=== PATIENT | female | born 1995 | race Hispanic/Latino ===

== ENCOUNTER 2020-01-17 13:59 | Emergency (ER) | payer OTHER, SELFPAY ==
--- NOTE | 2020-01-17 14:15 | ED.GENADULT ---
HPI - General Adult General Chief complaint: Wound/Laceration Stated complaint: possible infected finger Time Seen by Provider: 01/17/20 14:31 Source: patient Mode of arrival: ambulatory Limitations: no limitations History of Present Illness HPI narrative: 24-year-old female patient presents to the [facility] care with complaints of right second finger pain and concerns about infection. Patient states is been like this for the past 3 to 4 days. Patient states that she was filing her nails and noticed that she started having redness and tenderness around the finger. Denies any fevers. Denies any chest pain, shortness of breath. Related Data Home Medications Medication Instructions Recorded Confirmed Iud 01/17/20 Allergies Allergy/AdvReac Type Severity Reaction Status Date / Time No Known Allergies Allergy Verified 08/22/19 09:40 Review of Systems Review of Systems: Narrative: CONSTITUTIONAL: Denies fever, chills, or sweats. EYES: Denies visual changes, redness, or discharge. ENT: Denies rhinorrhea, congestion, sore throat, or otalgia. CARDIOVASCULAR: Denies chest pain, palpitations, or edema. RESPIRATORY: Denies cough or dyspnea. GASTROINTESTINAL: Denies abdominal pain, nausea, vomiting, or diarrhea. GENITOURINARY: Denies dysuria or hematuria. SKIN: Denies rash or itching. Positive redness, swelling and tenderness to right second finger x3 to 4 days MUSCULOSKELETAL: Denies back pain, joint pain, or myalgia. NEUROLOGIC: Denies headache, numbness, or weakness. PSYCHIATRIC: Denies anxiety or depression. [facility] Past Medical History Medical History (Updated 01/17/20 @ 14:48 by CLAIRE Mckeon) Gallstones Gestational diabetes Umbilical hernia Urinary incontinence Surgical History Surgical History (Updated 01/17/20 @ 14:16 by CLAIRE Mckeon) History of tonsillectomy Family History Family History (Updated 01/17/20 @ 14:17 by CLAIRE Mckeon) Other Cancer Social History Social History (Updated 01/17/20 @ 14:17 by CLAIRE Mckeon) Tobacco type: cigarettes Comments At the time of my signature I agree with nursing past medical history, surgical, social, and family history. There is no relevant family history pertinent to the presenting complaint. Exam Narrative: Exam Narrative: GENERAL: Well-appearing, well-nourished, and in no acute distress. HEAD: Normocephalic, atraumatic. EYES: PERRLA and EOMI. ENT: Nares clear, no rhinorrhea or epistaxis. Mucous membranes moist. NECK: Supple. No lymphadenopathy CHEST: Clear to auscultation. No respiratory distress. HEART: Regular rate and rhythm. No murmur heard. Normal peripheral pulses. ABDOMEN: Soft, nontender, nondistended, normal active bowel sounds. EXTREMITIES: Normal range of motion. No edema. SKIN: Warm, dry, no rash. It appears the patient has a paronychia him around the right second finger. It is swollen, red, warm and very tender to the touch. There is no active drainage at this time. NEURO: No focal deficits. Alert and oriented x3. Course Vital Signs Vital signs: Vital Signs Temperature 36.6 C 01/17/20 14:21 Pulse Rate 58 L 01/17/20 14:21 Respiratory Rate 16 01/17/20 14:21 Blood Pressure 106/66 01/17/20 14:21 Pulse Oximetry 100 01/17/20 14:21 Temperature 36.6 C 01/17/20 14:21 Pulse Rate 58 L 01/17/20 14:21 Respiratory Rate 16 01/17/20 14:21 Blood Pressure 106/66 01/17/20 14:21 Pulse Oximetry 100 01/17/20 14:21 Vital signs reviewed. Procedures Other Procedure Procedure 1: Other Procedure: The right second finger was cleansed with Betadine. 0.5 mils of 1% lidocaine was injected to help with numbing. An 18-gauge needle was used to open up the cuticle line and there was some blood expressed from the area. No obvious pus noted. Patient tolerated procedure well Medical Decision Making Differential Diagnosis Differential Diagnosis: Differential diagnosis: Abscess, celluli
[2020-01-17 14:21] VITALS: BP 106/66; PULSE 58; RESP 16; TEMP 36.6; O2SAT 100
== END 2020-01-17 14:53 | disposition home or self-care (01) ==
PROVIDERS: Emergency Provider Nurse Practitioner Family; PCP Family Medicine
DX: L03.011 Cellulitis of right finger (principal); F17.210 Nicotine dependence, cigarettes, uncomplicated
CPT/HCPCS: 10160; 99213; G0463

== ENCOUNTER 2020-06-07 18:45 | Emergency (ER) | payer OTHER, SELFPAY ==
[2020-06-07 18:54] VITALS: BP 127/73; PULSE 54; RESP 16; TEMP 36.9; O2SAT 99
--- NOTE | 2020-06-07 19:22 | ED.GENADULT ---
HPI - General Adult General Chief complaint: Dental/Oral Stated complaint: right jaw swollen Time Seen by Provider: 06/07/20 19:04 Source: patient and RN notes reviewed Mode of arrival: ambulatory Limitations: no limitations History of Present Illness HPI narrative: Patient presents today complaining of swelling to her right cheek x2 days, pain to her right upper and lower jawline's radiating to her right ear. States she is unable to open her mouth too wide as it is very painful. Denies pain to her teeth. States she is having a foul taste in her mouth. Currently rates her pain 5/10, which significantly increases when she brushes her teeth or chews. She has been taking some ibuprofen with mild relief. Denies fever, shortness of breath, or difficulty swallowing. MD complaint: Swelling to right face Related Data Home Medications Medication Instructions Recorded Confirmed levonorgestrel [Mirena] 1 device INTRAUTERINE ONCE 06/07/20 06/07/20 Allergies Allergy/AdvReac Type Severity Reaction Status Date / Time No Known Allergies Allergy Verified 06/07/20 19:01 Review of Systems Review of Systems: Narrative: CONSTITUTIONAL: Denies body aches, fever, chills, or sweats. EYES: Denies visual changes, redness, or discharge. ENT: Denies rhinorrhea, congestion, sore throat, or otalgia.+ Facial swelling and pain CARDIOVASCULAR: Denies chest pain, palpitations, or edema. RESPIRATORY: Denies cough or dyspnea. GASTROINTESTINAL: Denies abdominal pain, nausea, vomiting, or diarrhea. GENITOURINARY: Denies dysuria or hematuria. SKIN: Denies rash, itching, or wounds. MUSCULOSKELETAL: Denies back pain, joint pain, or myalgia. NEUROLOGIC: Denies headache, numbness, tingling, or weakness. PSYCH: Denies depression or anxiety. [facility] Past Medical History Medical History (Updated 06/08/20 @ 00:00 by [facility] Darenu) Gallstones Gestational diabetes Umbilical hernia Urinary incontinence Surgical History Surgical History (Updated 01/17/20 @ 14:16 by CLAIRE Mckeon) History of tonsillectomy Family History Family History (Updated 01/17/20 @ 14:17 by CLAIRE Mckeon) Other Cancer Social History Social History (Updated 01/17/20 @ 14:17 by CLAIRE Mckeon) Tobacco type: cigarettes Comments At time of signature, I have reviewed and agree with nursing past medical, surgical, social and family history unless otherwise noted. Please see nursing chart for further information. There is no relevant family history pertinent to the presenting complaint Exam Narrative: Exam Narrative: GENERAL: Well-appearing, well-nourished, and in no acute distress. HEAD: Normocephalic, atraumatic. EYES: EOMI. No redness or drainage. Conjunctivae normal. ENT: Mucous membranes pink and moist. Nares clear. No rhinorrhea. TMs normal bilaterally. Patient only able to open her mouth about 2 fingerbreadths. No sublingual tenderness or swelling. Patient has tenderness and swelling moderately to the right upper and lower jawline and tenderness to same with some mild redness to the face as well. With inspection to the inner cheek, there is some white material noted around the salivary gland area. No salivary stones readily appreciated. NECK: Normal AROM. Supple. No lymphadenopathy. CHEST: No respiratory distress. Clear to auscultation. HEART: Regular rate and rhythm. No murmur appreciated. Normal peripheral pulses. EXTREMITIES: Normal range of motion. No edema. SKIN: Warm, dry, no rash. Capillary refill normal. Normal skin turgor. NEURO: No focal deficits. Alert and oriented x3. Gait steady. PSYCH: Normal affect. No signs of depression or anxiety. Course Vital Signs Vital signs: Vital Signs Temperature 98.4 F 06/07/20 18:54 Pulse Rate 54 L 06/07/20 18:54 Respiratory Rate 16 06/07/20 18:54 Blood Pressure 127/73 06/07/20 18:54 Pulse Oximetry 99 06/07/20 18:54 Temperature 98.4 F 06/07/20 18:54 Puls
== END 2020-06-07 19:32 | disposition home or self-care (01) ==
PROVIDERS: Emergency Provider Nurse Practitioner; PCP Family Medicine
DX: K11.20 Sialoadenitis, unspecified (principal)
CPT/HCPCS: 99213; G0463

== ENCOUNTER 2021-08-23 12:46 | Emergency (ER) | payer OTHER, SELFPAY ==
[2021-08-23 13:00] VITALS: BP 122/73; PULSE 85; RESP 18; TEMP 36.6; O2SAT 100
--- NOTE | 2021-08-23 13:13 | ED.URI ---
HPI - URI/Sore Throat General Chief Complaint: Upper Respiratory Infection Stated Complaint: Sore Throat,Ear Pain Time Seen by Provider: 08/23/21 13:14 Source: patient, RN notes reviewed and old records reviewed Mode of arrival: ambulatory Limitations: no limitations History of Present Illness HPI Narrative: 26-year-old female presents to the [facility] with complaints of sinus congestion stated 3 days ago. Patient states that her kids had the same thing but they are better. She wants to be better now. Unsure of fevers. Related Data Home Medications Medication Instructions Recorded Confirmed levonorgestrel [Mirena] 1 device INTRAUTERINE ONCE 06/07/20 06/07/20 Allergies Allergy/AdvReac Type Severity Reaction Status Date / Time No Known Allergies Allergy Verified 06/07/20 19:01 Review of Systems Review of Systems: All systems reviewed & are unremarkable except as noted in HPI and below Constitutional: Constitutional: Reports no additional constitutional complaints, Denies chills and Denies fever(s) Eyes: Eyes: Reports no additional eye complaints ENT: Reports as per HPI and Reports nasal congestion Cardiovascular: Cardiovascular: Reports no additional cardiovascular complaints Respiratory: Respiratory: Reports no additional respiratory complaints, Denies cough and Denies dyspnea Gastrointestinal: Gastrointestinal: Reports no additional gastrointestinal complaints Genitourinary: Genitourinary: Reports no additional female genitourinary complaints Musculoskeletal: Musculoskeletal: Reports no additional musculoskeletal complaints Integumentary/Breasts: Skin/Breast: Reports system reviewed and no additional complaints, except as docu Neurologic: Reports system reviewed and no additional complaints, except as documented Psychiatric: Psychiatric: Reports no additional psychiatric complaints Allergic/Immunologic: Allergic/Immunologic: Reports no additional allergic/immunologic complaints [facility] Past Medical History Medical History (Updated 08/23/21 @ 13:42 by Cat Krishna) Gallstones Gestational diabetes Umbilical hernia Urinary incontinence Surgical History Surgical History History of tonsillectomy Family History Family History Other Cancer Social History Social History Tobacco type: cigarettes Comments At the time of my signature, I reviewed and agree with the nursing past medical, surgical, social, and family history. There is no relevant family history pertinent to the patient complaint. Exam Const: General: healthy appearing, no acute distress and alert Nutritional Appearance: well nourished Orientation/consciousness: patient oriented x3 Limitations: no limitations HENMT: Head: normal to inspection Ears: external ears normal, TM's normal bilaterally and EAC's normal Throat: uvula midline, postnasal drainage and tonsils absent Eyes: Conjunctivae: conjunctivae normal Pupils: Equal, round and reactive pupils present Neck: Neck: normal visual inspection, no lymphadenopathy and no meningeal signs Chest: Chest palpation & inspection: normal inspection of the chest Resp: Effort & Inspection: normal respiratory effort and no use of accessory muscles Auscultation: clear to auscultation bilaterally, no crackles, no rales, no rhonchi and no wheezes Cardio: Rate: regular rate Rhythm: regular rhythm GI: GI Palp: Yes Soft to palpation and No Tenderness to palpation present (GI) Back/Spine/Pelvis: Back: no CVA tenderness Skin: General skin exam: normal color Rashes: no rashes Wounds: no wounds Neuro: General: patient oriented x3, moves all extremities, no meningeal signs and no focal motor deficits Speech: normal speech Gait exam (Neuro): Normal gait present Extrem: General: normal to inspection Psych: Appearance: grossly normal
== END 2021-08-23 13:45 | disposition home or self-care (01) ==
PROVIDERS: Emergency Provider Nurse Practitioner; PCP Family Medicine
DX: J01.40 Acute pansinusitis, unspecified (principal)
CPT/HCPCS: 87081; 87804; 87880; 99213; G0463

== ENCOUNTER 2022-01-05 09:23 | Outpatient (CLI) | payer OTHER, SELFPAY ==
--- NOTE | ~2022-01-05 | US_ITS ---
EXAMINATION: US renal BI DATE: 01/05/2022 09:59 INDICATION: Abdominal pain. Familial history of polycystic kidney disease. TECHNIQUE: Multiple ultrasound grayscale images of the kidneys were obtained. COMPARISON: None. FINDINGS: The right kidney measures 12.9 x 4.5 x 5.6 cm. The left kidney measures 11.2 x 4.9 x 6.3 cm. The kidn eys demonstrate normal echogenicity. There is no hydronephrosis in either kidney. No stones identifi ed. The bladder is normal with bilateral ureteral jets visualized with color Doppler. IMPRESSION: 1. Normal kidneys without hydronephrosis. Reviewed, dictated and finalized at location B.
== END 2022-01-05 09:24 | disposition home or self-care (01) ==
LOC: ANHIMG 09:24
PROVIDERS: PCP Family Medicine; Visit Provider Nurse Practitioner Family
DX: R10.9 Unspecified abdominal pain (principal); Z82.71 Family history of polycystic kidney
CPT/HCPCS: 76775

== ENCOUNTER 2022-07-03 02:08 | Emergency (ER) | payer OTHER, SELFPAY ==
--- NOTE | ~2022-07-03 | CT_ITS ---
EXAMINATION: CT abdomen pelvis w con DATE: 07/03/2022 05:33 INDICATION: Sudden onset diffuse abdominal pain TECHNIQUE: Computed tomography (CT) of the abdomen and pelvis was performed with 100 mL Omnipaque-350 intravenous contrast. Automated exposure control and iterative reconstruction technique were employe d. The dose-length product was 514.34 mGy-cm. COMPARISON: 12/21/2012 FINDINGS: Calcified left lower lobe nodule along with calcified bilateral hilar lymph nodes and a few small spl enic calcific lesions, all consistent with old granulomatous disease. Heart size is normal. No perica rdial or pleural effusion. Bilateral breast implants. Focal hepatic steatosis at the ligamentum teres . There are a few gallstones in the gallbladder which is distended to 5.0 cm. No evident gallbladder wall thickening or pericholecystic infiltrate stranding to more specifically suggest acute cholecysti tis. No intra or extrahepatic biliary ductal dilation. Pancreas, bilateral adrenal glands and kidneys are normal. Normal appendix. No abnormal bowel wall thickening or obstruction. No significant interv al change in a 4 cm retroperitoneal cyst position posterior to the cecum. Bladder, anteverted uterus and bilateral adnexa are unremarkable. No free intraperitoneal gas or fluid. No pathologically enlarg ed abdominal or pelvic lymphadenopathy. Bones are unremarkable. IMPRESSION: 1. Cholelithiasis with dilation of the gallbladder but without evident wall thickening or pericholecy stic inflammatory stranding to suggest acute cholecystitis. Correlate for Rashid and if indicated cou ld consider HIDA scan for further evaluation. Reviewed, dictated and finalized at location A. IMPRESSION: 1. Cholelithiasis with dilation of the gallbladder but without evident wall thi ckening or pericholecystic inflammatory stranding to suggest acute cholecystiti s. Correlate for Rashid and if indicated could consider HIDA scan for further e valuation.
[2022-07-03 02:11] VITALS: BP 126/83; PULSE 68; RESP 18; TEMP 36.6; O2SAT 100
--- NOTE | 2022-07-03 02:22 | PC.NURSE ---
Patient presents to the desk stating I need pain medication . This RN informed patient that I am unable to give her pain medication until a provider sees her.
--- NOTE | 2022-07-03 02:42 | PC.NURSE ---
Patient had tummy tuck surgery in January of this year. Patient has also had an umbilical hernia repair in 2012
[2022-07-03 02:54] LABS: Basophils Percent Auto 0.2 % (0.2-1.2); Eosinophils Absolute Auto 0.1 K/mm3 (0-0.3); Eosinophils Percent Auto 0.4 % (0-4.4); Hematocrit 37.3 % (37.0-47.0); Hemoglobin 12.2 g/dL (12.0-15.0); Immature Granulocyte Absolute 0.03 K/mm3 (0.00-0.031); Immature Granulocyte Percent A 0.3 % (0-0.5); Lymphocytes Absolute Auto 1.96 K/mm3 (0.9-3.2); Lymphocytes Percent Auto 17.3 % (18.3-44.2); Mean Corpuscular HGB Conc 32.7 g/dl (32-36); Mean Corpuscular Hemoglobin 28.7 pg (26-34); Mean Corpuscular Volume 87.8 fl (80-100); Mean Platelet Volume 10.2 fl (7.4-10.4); Monocytes Absolute Auto 0.3 K/mm3 (0.1-0.6); Neutrophils Absolute Auto 8.9 K/mm3 (1.3-6.7); Neutrophils Percent Auto 78.8 % (45.5-73.1); Platelet Count Result 247 k/mm3 (150-375); Red Blood Count 4.25 M/mm3 (4.2-5.4); Red Cell Distribution Width 14.5 % (11.5-14.5); White Blood Count 11.3 K/mm3 (4.5-10.0)
[2022-07-03 02:58] LABS: Add Urine Microscopic? YES; Amorphous Sediment Urine Few; Appearance Urine Cloudy (Clear); Bilirubin Urine Negative (Negative); Blood Urine Negative (Negative); Color Urine Yellow (Yellow); Glucose Urine UA Negative (Negative); Ketones Urine Negative (Negative); Leukocyte Esterase Ur Negative LEU/UL (Negative); Mucus Urine Rare /lpf; Nitrate Urine Negative (Negative); Protein Urine Negative (Negative); RBC Urine 0-2 /hpf (0-2); Squamous Epithelial Cell Urine Rare /hpf (Few); Urobilinogen Urine Negative mg/dL (<2.0); WBC Urine 0-3 /hpf
[2022-07-03 03:07] LABS: Alanine Aminotransferase 18 U/L (6-35); Albumin Level 4.9 g/dL (3.5-5.1); Alkaline Phosphatase 67 U/L (38-126); Anion Gap 14 mmol/L (8-16); Aspartate Amino Transferase 19 U/L (14-36); Bilirubin,Total 0.4 mg/dL (0.2-1.3); Blood Urea Nitrogen 17 mg/dL (7-17); Calcium 9.5 mg/dL (8.4-10.2); Carbon Dioxide 26 mmol/L (22-30); Chloride 101 mmol/L (98-107); Estimated CRCL calculation 111 ml/min; Estimated Glomerular Filt Rate > 60; Glucose 110 mg/dL (65-110); Lipase 58 U/L (23-300); Potassium 3.8 mmol/L (3.4-5.0); Sodium 141 mmol/L (137-145)
[2022-07-03 03:37] VITALS: BP 137/72; PULSE 62; RESP 16; TEMP 37; O2SAT 100
--- NOTE | 2022-07-03 04:44 | ED.GENADULT ---
HPI - General Adult General Chief complaint: Abdominal Pain Stated complaint: abdominal pain Time Seen by Provider: 07/03/22 04:08 History of Present Illness HPI narrative: Is a 27-year-old female presenting to ED with chief complaint of abdominal pain. Patient says that the abdominal pain started at 11:00 p.m. tonight. She says it is worse in the epigastric area but is throughout her entire belly. It is the worst pain in her life and is worse than giving . She says it is constant but it does have evident flow to it. She has never experienced pain like this before. She says it is improved by rolling back and forth. There are no exacerbating factors. She has had 2 episodes of nausea and vomiting since started as well as 3 episodes of diarrhea. She denies fever, chills, chest pain or difficulty breathing. She denies urinary symptoms. She is not . Patient is repeatedly asking for pain medication. Related Data Home Medications Medication Instructions Recorded Confirmed levonorgestrel 20 mcg/24 hours (8 1 device intrauterine ONCE 06/07/20 06/07/20 yrs) 52 mg intrauterine device (Mirena) Allergies Allergy/AdvReac Type Severity Reaction Status Date / Time No Known Allergies Allergy Verified 07/03/22 02:14 Review of Systems Review of Systems: CONSTITUTIONAL: Denies night sweats. EYES: No eye pain ENT: Denies rhinorrhea CARDIOVASCULAR: Denies palpitations RESPIRATORY: Denies hemoptysis GASTROINTESTINAL: Denies hematemesis GENITOURINARY: Denies hematuria. SKIN: Denies rash MUSCULOSKELETAL: Denies myalgia. NEUROLOGIC: Denies weakness. PSYCHIATRIC: Denies delusions PMFSH Past Medical History Medical History (Updated 07/03/22 @ 06:46 by Liang Bledsoe MD) Gallstones Gestational diabetes Umbilical hernia Umbilical hernia Urinary incontinence Surgical History Surgical History H/O abdominoplasty History of tonsillectomy Family History Family History Other Cancer Social History Social History Tobacco type: cigarettes Exam Narrative: APPEARANCE: sitting in a chair with her head on the stretcher rocking back and forth. Head Atraumatic EYES: PERRLA/EOMI, NOSE: Normal no drainage NECK: Supple, Trachea midline RESPIRATORY: CTAB, No increased work of breathing. CARDIOVASCULAR: S1S2 appreciated ABDOMINAL: Abdomen is diffusely tender. It is soft with no guarding or rebound. MUSCULOSKELETAL: No obvious deformities NEURO: Alert. Moving 4/4 extremities SKIN:: Warm, dry. Normal color PSYCHIATRIC: Normal affect Course Vital Signs Vital signs: Vital Signs Temperature 97.8 F 07/03/22 02:11 Pulse Rate 68 07/03/22 02:11 Respiratory Rate 18 07/03/22 02:11 Blood Pressure 126/83 07/03/22 02:11 Pulse Oximetry 100 07/03/22 02:11 Temperature 98.6 F 07/03/22 03:37 Pulse Rate 62 07/03/22 03:37 Respiratory Rate 16 07/03/22 03:37 Blood Pressure 137/72 07/03/22 03:37 Pulse Oximetry 100 07/03/22 03:37 Medical Decision Making [facility] Narrative Medical decision making narrative: This is a 27-year-old female presenting with sudden onset abdominal pain. Abdominal lab work was ordered. She is reporting diffuse tenderness. CT abdomen pelvis has been ordered to evaluate for intra-abdominal pathology. Patient has been given a GI cocktail. CBC was significant for a mildly elevated white blood cell count 11.3. CMP was within normal limits. Urinalysis did not indicate UTI. Lipase was normal. CT showed a distended gallbladder with a stone in the gallbladder neck. On re-evaluation the patient says her pain is gone. Her laboratory studies were normal her vital signs were stable. I am not concerned for cholecystitis at this time this is more likely some biliary colic. Nic
[2022-07-03] MEDS: FAMOTIDINE 20 MG/2 ML VIAL IV PUSH (04:56)
[2022-07-03] MEDS: MAG HYDROX/AL HYDROX/SIMETH 30 ML UDC PO (04:56)
[2022-07-03] MEDS: ONDANSETRON INJ 4 MG/2 ML VIAL IV PUSH (04:56)
[2022-07-03] MEDS: PROCHLORPERAZINE EDISYLATE 10 MG/2 ML VIAL IV PUSH (04:56)
[2022-07-03 05:06] LABS: Amphetamine Screen Urine Negative (Negative); Barbiturate Screen Urine Negative (Negative); Benzodiazepines Screen Urine Negative (Negative); Cannabinoid Screen Urine Negative (Negative); Cocaine Screen Urine Negative (Negative); Methadone Screen Urine Negative (Negative); Opiate Screen Urine Negative (Negative); Phencyclidine Screen Urine Negative (Negative)
[2022-07-03 06:54] VITALS: BP 127/83; PULSE 64; RESP 18; O2SAT 98
== END 2022-07-03 06:56 | disposition home or self-care (01) ==
PROVIDERS: Emergency Provider Emergency Medicine; PCP Family Medicine
DX: K80.20 Calculus of gallbladder without cholecystitis without obstruction (principal); Z98.84 Bariatric surgery status; F17.210 Nicotine dependence, cigarettes, uncomplicated
CPT/HCPCS: 36415; 74177; 80053; 80307; 81001; 81025; 83690; 85025; 96374; 96375; 99284; A9270; J0780; J2405; Q9967

== ENCOUNTER 2022-11-07 15:13 | Emergency (ER) | payer OTHER, SELFPAY ==
[2022-11-07 15:23] VITALS: BP 116/67; PULSE 89; RESP 18; TEMP 37.1; O2SAT 100
--- NOTE | 2022-11-07 15:27 | ED.URI ---
HPI - URI/Sore Throat General Chief Complaint: Upper Respiratory Infection Stated Complaint: . Time Seen by Provider: 11/07/22 15:15 Source: patient Mode of arrival: ambulatory Limitations: no limitations History of Present Illness HPI Narrative: Callum is a 27-year-old female patient presenting to the clinic today with complaints of sore throat times 2 days. She reports that her daughter was recently tested for strep and the culture came back positive today. Patient is concerned that she may have strep throat as well. MD elicited complaint: sore throat and nasal congestion Related Data Home Medications Medication Instructions Recorded Confirmed levonorgestrel 21 mcg/24 hours (8 1 device intrauterine ONCE 06/07/20 06/07/20 yrs) 52 mg intrauterine device (Mirena) Allergies Allergy/AdvReac Type Severity Reaction Status Date / Time No Known Allergies Allergy Verified 07/03/22 02:14 Review of Systems Review of Systems: Pertinent positives per HPI. Patient denies any fever, chills, rash, headache, visual changes, dizziness, cough, shortness of breath, chest pain, palpitations, nausea, vomiting, diarrhea, constipation, abdominal pain, or any urinary issues. [facility] Past Medical History Medical History Gallstones Gestational diabetes Umbilical hernia Umbilical hernia Urinary incontinence Surgical History Surgical History H/O abdominoplasty History of tonsillectomy Family History Family History Other Cancer Social History Social History Tobacco type: cigarettes Comments At the time of my signature, I reviewed and agree with the nursing past medical, surgical, social, and family history. There is no relevant family history pertinent to the patient complaint. Exam Narrative: General: Well-developed, well nourished, in no apparent distress Head: Normocephalic, atraumatic Eyes: Pupils equally round and reactive to light bilaterally, EOM intact, sclera and conjunctive clear, no discharge, lids normal Ears: TMs intact and clear, ear canals clear, no drainage, grossly hearing normal. Nose: Nares patent, clear nasal discharge, no inflammation, no sinus tenderness. Mouth: Oral pharynx without lesions or masses, good dentition, MMM. Oropharynx red-tonsils surgically absent Neck: Supple, trachea midline, no enlargement of anterior or posterior cervical nodes, no thyroid masses or goiter palpable. Cardio: Regular rate and rhythm, s1 and s2 normal, no murmur appreciated. Resp: Clear to auscultation bilaterally, no rhonchi, rales, wheezing or rubs Course Course Emergency Course: Portions of this record may have been created with voice recognition software. Level of Care: Express Care Visit Vital Signs Vital signs: Vital Signs Temperature 37.1 C 11/07/22 15:23 Pulse Rate 89 11/07/22 15:23 Respiratory Rate 18 11/07/22 15:23 Blood Pressure 116/67 11/07/22 15:23 Pulse Oximetry 100 11/07/22 15:23 Oxygen Delivery Room Air 11/07/22 15:23 Temperature 37.1 C 11/07/22 15:23 Pulse Rate 89 11/07/22 15:23 Respiratory Rate 18 11/07/22 15:23 Blood Pressure 116/67 11/07/22 15:23 Pulse Oximetry 100 11/07/22 15:23 Oxygen Delivery Room Air 11/07/22 15:23 Vital signs reviewed MDM - URI/Sore Throat MDM Narrative Medical decision making narrative: At the time of visit patient is resting comfortably on the exam table. Strep screen was obtained and was negative in the clinic today. We will send for culture if this comes back positive we will contact patient place her on antibiotics at that time supportive measures were discussed with the patient she voiced understanding discharge instructions and agrees to treatment p
== END 2022-11-07 15:41 | disposition home or self-care (01) ==
PROVIDERS: Emergency Provider Nurse Practitioner Family; PCP Family Medicine
DX: J02.9 Acute pharyngitis, unspecified (principal)
CPT/HCPCS: 87081; 87880; 99213; G0463

== ENCOUNTER 2022-11-15 17:24 | Emergency (ER) | payer OTHER, SELFPAY ==
[2022-11-15 17:29] VITALS: BP 110/58; PULSE 98; RESP 20; TEMP 37.6; O2SAT 100
--- NOTE | 2022-11-15 17:44 | ED.ABDPAIN ---
HPI - Abdominal Pain General Chief Complaint: Abdominal Pain Stated Complaint: Diarrhea,Vomiting,Body Aches,Headache Time Seen by Provider: 11/15/22 17:44 Source: patient Mode of arrival: ambulatory Limitations: no limitations History of Present Illness HPI narrative: 27-year-old female presents with complaint of chills, body aches, upset stomach, nausea, vomiting and diarrhea starting this morning. Reports 1 episode of vomiting. Is able to keep down water. Took 1 g of Tylenol early this morning. States that she has had several episodes of diarrhea. Afebrile. No urinary symptoms. No concern for . All systems reviewed and negative except as noted above. Related Data Home Medications Medication Instructions Recorded Confirmed drospirenone 3 mg-estetrol 14.2 mg 1 tablet PO DAILY 11/07/22 11/07/22 (28) tablet (Nextstellis) phentermine 15 mg capsule 15 mg PO DAILY 11/07/22 11/07/22 Allergies Allergy/AdvReac Type Severity Reaction Status Date / Time No Known Allergies Allergy Verified 11/07/22 15:51 Review of Systems Review of Systems: CONSTITUTIONAL: Reports fever, chills, or sweats. EYES: Denies visual changes, redness, or discharge. ENT: Denies rhinorrhea, congestion, sore throat, or otalgia. CARDIOVASCULAR: Denies chest pain, palpitations, or edema. RESPIRATORY: Denies cough or dyspnea. GASTROINTESTINAL: reports abdominal pain, nausea, vomiting, or diarrhea. GENITOURINARY: Denies dysuria or hematuria. SKIN: Denies rash or itching. MUSCULOSKELETAL: Denies back pain, joint pain. Reports myalgia. NEUROLOGIC: Denies headache, numbness, or weakness. PSYCHIATRIC: Denies anxiety or depression. All other systems reviewed are negative, except as documented in HPI. [facility] Past Medical History Medical History Gallstones Gestational diabetes Umbilical hernia Umbilical hernia Urinary incontinence Surgical History Surgical History H/O abdominoplasty History of tonsillectomy Family History Family History Other Cancer Social History Social History Tobacco type: cigarettes Comments At time of signature, agree with nursing past medical, surgical, social and family history. There is no relevant family history pertinent to the presenting complaint. Exam Narrative: GENERAL: This is a well-nourished, well-developed patient, patient ill-appearing but in no distress. HEAD: normocephalic, atraumatic. EYES: PERRL. Sclera clear/white. Vision is grossly intact. EARS: External ears normal NOSE: External nose normal NECK: Neck supple, non-tender without lymphadenopathy, masses or thyromegaly. CARDIOVASCULAR: Regular rate and rhythm without murmurs, gallops, or rubs. RESPIRATORY: Clear to auscultation. Breath sounds equal bilaterally. No wheezes, rales, or rhonchi. GASTROINTESTINAL: Abdomen soft, non-tender, nondistended. Bowel sounds are active. No hepato-splenomegaly, or palpable masses. No guarding. SKIN: warm, Dry, intact with no suspicious lesions or rash, good texture and turgor. NEURO: awake, alert, and oriented to person, place and time. There were no obvious focal neurologic abnormalities. EXTREMITIES: No joint tenderness, effusion, or edema noted. Course Course Level of Care: Express Care Visit Vital Signs Vital signs: Vital Signs Temperature 37.6 C 11/15/22 17:29 Pulse Rate 98 11/15/22 17:29 Respiratory Rate 20 11/15/22 17:29 Blood Pressure 110/58 L 11/15/22 17:29 Pulse Oximetry 100 11/15/22 17:29 Oxygen Delivery Room Air 11/15/22 17:29 Temperature 37.6 C 11/15/22 17:29 Pulse Rate 98 11/15/22 17:29 Respiratory Rate 20 11/15/22 17:29 Blood Pressure 110/58 L 11/15/22 17:29 Pulse Oximetry 100 03
[2022-11-15] MEDS: ONDANSETRON HCL ODT 4 MG TABLET SUBLINGUAL (18:04)
[2022-11-15] MEDS: IBUPROFEN 600 MG TABLET PO (18:05)
== END 2022-11-15 18:37 | disposition home or self-care (01) ==
PROVIDERS: Emergency Provider Nurse Practitioner Family; PCP Family Medicine
DX: A08.4 Viral intestinal infection, unspecified (principal); F17.210 Nicotine dependence, cigarettes, uncomplicated
CPT/HCPCS: 87804; 99213; A9270; G0463

== ENCOUNTER 2023-10-23 13:12 | Emergency (ER) | payer OTHER, SELFPAY ==
[2023-10-23 13:47] VITALS: BP 122/59; PULSE 66; RESP 16; TEMP 36.7; O2SAT 98
--- NOTE | 2023-10-23 14:00 | ED.GENADULT ---
HPI - General Adult General Chief complaint: Unspecified Stated complaint: Female Problems Time Seen by Provider: 10/23/23 14:10 Mode of arrival: ambulatory Limitations: no limitations History of Present Illness HPI narrative: 28-year-old female presents with concern for hemorrhoid reports has been there for 3-4 days. Reports it is painful. Denies bleeding. complaint: Hemorrhoid Related Data Home Medications Medication Instructions Recorded Confirmed No Home Medications 10/23/23 10/23/23 Allergies Allergy/AdvReac Type Severity Reaction Status Date / Time No Known Allergies Allergy Verified 10/23/23 14:04 Review of Systems Review of Systems: CONSTITUTIONAL: Denies malaise, chills, sweats, or fever. SKIN: Denies rash or itching. Reports painful hemorrhoid MUSCULOSKELETAL: Denies myalgia. All systems reviewed & are unremarkable except as noted in HPI and below PMFSH Past Medical History Medical History Gallstones Gestational diabetes Umbilical hernia Umbilical hernia Urinary incontinence Surgical History Surgical History H/O abdominoplasty History of tonsillectomy Family History Family History Other Cancer Social History Social History Tobacco type: cigarettes Comments At time of signature, agree with nursing past medical, surgical, social and family history. There is no relevant family history pertinent to the presenting complaint Exam Narrative: GENERAL: Well-appearing, well-nourished, and in no acute distress. HEAD: Normocephalic ENT: Nares clear. Mucous membranes moist. NECK: Supple. CHEST: No respiratory distress. Speaks in full sentences. HEART: Regular rate and rhythm. SKIN: Warm, dry, no visible rash. Approximately 1 cm nonthrombosed hemorrhoid noted without surrounding erythema, edema, warmth, tenderness NEURO: Alert and oriented x3. PSYCH: Normal mood and affect Course Course Emergency Course: Patient was advised to use stool softeners to avoid straining with bowel movements. Patient was advised if symptoms do not improve she should follow up with General surgery for further evaluation. Patient is aware of diagnosis, understands and agrees to treatment plan. Anticipatory guidance given. Patient agrees to follow-up as directed and is aware of reasons to seek care at the emergency department. Portions of this record may have been created with voice recognition software Level of Care: Express Care Visit Vital Signs Vital signs: Vital Signs Temperature 98.1 F 10/23/23 13:47 Pulse Rate 66 10/23/23 13:47 Respiratory Rate 16 10/23/23 13:47 Blood Pressure 122/59 L 10/23/23 13:47 Pulse Oximetry 98 10/23/23 13:47 Oxygen Delivery Room Air 10/23/23 13:47 Temperature 98.1 F 10/23/23 13:47 Pulse Rate 66 10/23/23 13:47 Respiratory Rate 16 10/23/23 13:47 Blood Pressure 122/59 L 10/23/23 13:47 Pulse Oximetry 98 10/23/23 13:47 Oxygen Delivery Room Air 10/23/23 13:47 Reviewed. Medical Decision Making MDM Narrative Medical decision making narrative: Exam findings show no acute concerns or changes; patient is non-toxic appearing and is in no distress. Patient is appropriate for outpatient treatment and follow-up. Vital Signs Vital Signs: Vital Signs Temperature 98.1 F 10/23/23 13:47 Pulse Rate 66 10/23/23 13:47 Respiratory Rate 16 10/23/23 13:47 Blood Pressure 122/59 L 10/23/23 13:47 Pulse Oximetry 98 10/23/23 13:47 Oxygen Delivery Room Air 10/23/23 13:47 Temperature 98.1 F 10/23/23 13:47 Pulse Rate 66 10/23/23 13:47 Respiratory Rate 16 10/23/23 13:47 Blood Pressure 122/59 L 10/23/23 13:47 Pulse Oximetry 98 10/23/23 13:47 Oxygen Delive
== END 2023-10-23 14:25 | disposition home or self-care (01) ==
PROVIDERS: Emergency Provider Nurse Practitioner; PCP Family Medicine
DX: K64.9 Unspecified hemorrhoids (principal); F17.210 Nicotine dependence, cigarettes, uncomplicated
CPT/HCPCS: 99211; G0463

== ENCOUNTER 2023-12-12 09:49 | Emergency (ER) | payer OTHER, SELFPAY ==
[2023-12-12 09:59] VITALS: BP 114/67; PULSE 66; RESP 16; TEMP 36.9; O2SAT 99
--- NOTE | 2023-12-12 10:29 | ED.EYEPROB ---
HPI - Eye Problem General Chief complaint: Eye Problems Stated complaint: red eyes,discharge Time Seen by Provider: 12/12/23 10:29 Source: patient, RN notes reviewed and old records reviewed Mode of arrival: ambulatory Limitations: no limitations History of Present Illness HPI Narrative: 28-year-old female presents to the [facility] with complaints of red eyes, drainage. Patient states that started yesterday. Denies any blurry vision or drip change in vision. Blood vision is 2020 right left and bilateral History of Lasix surgery. Denies any recent trauma Onset (ago): day(s) (1) Related Data Patient tetanus UTD: Yes Home Medications Medication Instructions Recorded Confirmed phentermine 37.5 mg tablet 37.5 mg PO DAILY 12/12/23 12/12/23 solifenacin 10 mg tablet 10 mg PO DAILY 12/12/23 12/12/23 valacyclovir 500 mg tablet 500 mg PO DAILY 12/12/23 12/12/23 Allergies Allergy/AdvReac Type Severity Reaction Status Date / Time No Known Allergies Allergy Verified 12/12/23 10:03 Review of Systems Review of Systems: All systems reviewed & are unremarkable except as noted in HPI and below Constitutional: Constitutional: Reports no additional constitutional complaints Eyes: Eyes: Reports as per HPI, Reports eye discharge and Reports irritation ENT: Reports system reviewed and no additional complaints, except as documented Cardiovascular: Cardiovascular: Reports no additional cardiovascular complaints, Denies chest pain and Denies dyspnea Respiratory: Respiratory: Reports no additional respiratory complaints, Denies chest congestion, Denies cough and Denies dyspnea Gastrointestinal: Gastrointestinal: Reports no additional gastrointestinal complaints, Denies abdominal pain, Denies nausea and Denies vomiting Musculoskeletal: Musculoskeletal: Reports no additional musculoskeletal complaints Integumentary/Breasts: Skin/Breast: Reports system reviewed and no additional complaints, except as docu Neurologic: Reports system reviewed and no additional complaints, except as documented Psychiatric: Psychiatric: Reports no additional psychiatric complaints Allergic/Immunologic: Allergic/Immunologic: Reports no additional allergic/immunologic complaints PMFSH Past Medical History Medical History Gallstones Gestational diabetes Umbilical hernia Umbilical hernia Urinary incontinence Surgical History Surgical History (Updated 12/12/23 @ 17:42 by Cat Krishna APRN) H/O abdominoplasty H/O breast augmentation History of cholecystectomy History of tonsillectomy Family History Family History Other Cancer Social History Social History Smoking status: Current every day smoker Tobacco type: cigarettes Alcohol intake: never Living arrangements: alone Occupation/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 There is no relevant family history pertinent to the patient complaint. Exam Const: General: cooperative, healthy appearing, comfortable, no acute distress, well developed, alert and well nourished Nutritional Appearance: well nourished Orientation/consciousness: patient oriented x3 Limitations: no limitations HENMT: Head: normal to inspection Ears: hearing grossly normal bilaterally and external ears normal Face/Nose/Sinus: Normal external nose present, Normal nares present, Normal nasal mucous membranes and turbinates present, normal facial exam and face symmetric Face and sinus: normal facial exam and face symmetric Mouth: Yes Normal oral and palatal mucosa present, Yes lip normal and Yes moist mucous membranes Throat: posterior oropharynx normal and uvula midline Eyes: General
== END 2023-12-12 10:41 | disposition home or self-care (01) ==
PROVIDERS: Emergency Provider Nurse Practitioner; PCP Family Medicine
DX: H10.33 Unspecified acute conjunctivitis, bilateral (principal); F17.210 Nicotine dependence, cigarettes, uncomplicated
CPT/HCPCS: 99213; G0463

== ENCOUNTER 2023-12-12 12:57 | Outpatient (RCR) | payer OTHER, SELFPAY ==
--- NOTE | 2023-12-12 13:45 | OPREHPOC ---
Outpatient Therapy Plan of Care This is a Multidisciplinary Plan of Care that may contain components documented by all disciplines (PT, OT, and ST.) PT Problem 1 PT Problem #1 Knowledge Deficit PT Goal 1 Goal 1. Patient will perform independent HEP 2. Patient will verbalize urge suppression techniques Target Visit 2 PT Problem 2 PT Problem #2 Impaired Strength PT Goal 1 Goal 1. Pelvic floor strength to 3/5 to decrease incontinence 2. Pelvic floor endurance to 10 seconds to decrease incontinence Target Visit 6 PT Problem 3 PT Problem #3 Impaired Functional ADLs PT Goal 1 Goal 1. Patient will void no more than 8 times a day and 1 time at night 2. Patient will report no more than 1 instance of incontinence per week 3. Patient will be able to go without pads at least 5 days a week Target Visit 6
--- NOTE | 2023-12-12 13:45 | PTOPEVAL1 ---
Assessment and note entered by Estefani West DPT Evaluation Information Assessment Status Evaluation Subjective Information Pt reports she has been diagnosed with OAB 4-5 years ago. Has tried previous pelvic PT which did help at the time. Has had incontinence as well which started 1.5 years ago and has worsened. Feels a lot of stress and will avoid fluids depending on her situation. Also will always void before going to a store and then may still have to void at the store. States the meds for OAB make her thirsty. Voids around 10 times a day and 1 time at night. Can hold urine less than a minute and wears pads at all times. Volume of incontinence is enough to fill a pad. Incontinence occurs at least once a day, often with activity. Avoids certain activities due to the incontinence and will void before and after exercise. Denies pain with urination. BM twice a day, no pain. Has a hemorrhoid and will likely be having surgery for it. Pt has been 3 times, 3 vaginal deliveries without tearing. States she has been told she has a thin cervical wall and gets bleeding after intercourse which is painful. Highest pain 7/10 and lowest 0/10. No other b/b issues. Patient goal: gain control again and stop incontinence, avoid wearing pads every day Returns to MD January 01. Reported Pain Level Pain Score 0: Self Report Assessment PT Clinical Summary The patient is presenting to skilled therapy with a diagnosis of OAB and reports of mixed urinary incontinence. She presents with greatly decreased pelvic floor strength and endurance and is unable to perform a contraction at this visit. She also demonstrates decreased hip and core strength. These impairments are contributing to her daily incontinence. She will highly benefit from therapy to address impairments in order to decrease urgency and incontinence in order to restore full function. Plan of Care Interventions Manual Therapy,Neuro Re-education,Patient/ Caregiver Education,Therapeutic Activities, Therapeutic Exercise PT Services Indicated Yes Treatment Frequency and 1 time a week for 6 visits Duration
--- NOTE | 2023-12-19 14:07 | PCPTNOTE ---
Patient did not show up for appointment 12/19/23- called and left voicemail for patient to reschedule.
--- NOTE | 2024-01-02 12:42 | PCPTNOTE ---
Patient called to cancel appointment on 01/02/24.
--- NOTE | 2024-01-16 14:42 | PCPTNOTE ---
The patient has not attended therapy since her evaluation on 12/12/23. She will be discharged this date and require a new script to continue in the future.
--- NOTE | 2024-01-16 14:49 | PTOPDC ---
Assessment and note entered by Estefani West, DPT Evaluation Information Assessment Status Discharge - Pt Not Present Subjective Information - Assessment PT Clinical Summary The patient has not attended therapy since her evaluation 12/12/23. She will be discharged this visit and require a new script to resume therapy in the future. Plan of Care PT Services Indicated No
== END 2024-01-16 16:50 | disposition home or self-care (01) ==
LOC: ANHPT 12:57
PROVIDERS: PCP Family Medicine; Visit Provider Nurse Practitioner
DX: R35.0 Frequency of micturition (principal); N32.81 Overactive bladder; N39.3 Stress incontinence (female) (male)
CPT/HCPCS: 97112; 97161; 99199; 99213; G0463

== ENCOUNTER 2024-01-15 11:12 | Emergency (ER) | payer OTHER, SELFPAY ==
[2024-01-15 11:19] VITALS: BP 107/76; PULSE 64; RESP 18; TEMP 36.6; O2SAT 100
--- NOTE | 2024-01-15 11:19 | ED.CHESTPAIN ---
HPI - Chest Pain General Chief Complaint: Chest Pain Stated Complaint: Chest Pain Time Seen by Provider: 01/15/24 11:31 Mode of arrival: ambulatory Limitations: no limitations History of Present Illness HPI narrative: 28-year-old female presents with concern for chest pain, pressure, heaviness that started at 5:00 a.m.. She reports it gets worse when she lies down flat. She reports sitting up makes it better. She reports certain movements make it worse. She denies shortness of breath. Reports she has been using deep breathing exercises which helps. She reports history of heartburn when she was . She denies any injury, rash, bruising MD complaint: chest pain Related Data Home Medications Medication Instructions Recorded Confirmed levonorgestrel 17.5 mcg/24 hr (up 1 device intrauterine ONCE 01/15/24 01/15/24 to 5 yrs) 19.5mg intrauterine device (Kyleena) Allergies Allergy/AdvReac Type Severity Reaction Status Date / Time No Known Allergies Allergy Verified 01/15/24 11:20 Review of Systems Review of Systems: CONSTITUTIONAL: Denies malaise, chills, sweats, or fever. CARDIOVASCULAR: Reports mid start chest pain. Denies palpitations or edema. RESPIRATORY: Denies cough or dyspnea. GASTROINTESTINAL: Denies abdominal pain, nausea, vomiting SKIN: Denies bruising, rash or itching. MUSCULOSKELETAL: Denies back pain, joint pain, or myalgia. NEUROLOGIC: Denies numbness, weakness, or headache. PSYCHIATRIC: Denies anxiety or depression. All systems reviewed & are unremarkable except as noted in HPI and below PMFSH Past Medical History Medical History (Updated 01/15/24 @ 11:55 by Cat Christianson NP) Gallstones Gestational diabetes Umbilical hernia Umbilical hernia Urinary incontinence Surgical History Surgical History (Updated 12/12/23 @ 17:42 by Cat Krishna APRN) H/O abdominoplasty H/O breast augmentation History of cholecystectomy History of tonsillectomy Family History Family History Other Cancer Social History Social History Smoking status: Current every day smoker Tobacco type: cigarettes Alcohol intake: never Living arrangements: alone 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 There is no relevant family history pertinent to the presenting complaint Exam Narrative: GENERAL: Well-appearing, well-nourished, and in no acute distress. HEAD: Normocephalic, atraumatic. EYES: PERRLA, sclera clear, and EOMI. No nystagmus. ENT: Nares clear. Mucous membranes moist. NECK: Supple. No jugular venous distension CHEST: No respiratory distress. Clear to auscultation. No bony deformities, no asymmetry. Speaks in full sentences. HEART: Regular rate and rhythm. No murmur heard. Normal peripheral pulses. EXTREMITIES: Normal range of motion. No edema. Normal strength and sensation. SKIN: Warm, dry, no visible rash. NEURO: Alert and oriented x3. PSYCH: Normal mood and affect Course Course Emergency Course: Patient is aware of diagnosis, understands and agrees to treatment plan. Anticipatory guidance given. Patient agrees to follow-up as directed and is aware of reasons to seek care at the emergency department. Portions of this record may have been created with voice recognition software Level of Care: Express Care Visit Reevaluation(s) Reevaluation #1: GI cocktail given. After 15 minutes patient reports pain has resolved Date: 01/15/24 Time: 11:52 Vital Signs Vital signs: Reviewed. MDM - Chest Pain MDM Narrative Medical decision making narrative: No evidence of ACS, pericarditis, myocarditis, pulmonary embolism, pneumothorax, pneumonia, Zoster, or esophageal perforation. Historically not abrupt in onset
[2024-01-15 11:20] VITALS: BP 107/76; PULSE 64; RESP 18; TEMP 36.6; O2SAT 100
--- NOTE | 2024-01-15 11:20 | ECG_ITS ---
SEE SCANNED COPY FOR CONFIRMED REPORT MTDD
[2024-01-15] MEDS: MAG HYDROX/AL HYDROX/SIMETH 30 ML UDC 15 ML PO (11:37)
[2024-01-15] MEDS: LIDOCAINE HCL 2% VISC SOLN 15 ML UDC PO (11:37)
== END 2024-01-15 12:00 | disposition home or self-care (01) ==
PROVIDERS: Emergency Provider Nurse Practitioner; PCP Family Medicine
DX: R10.13 Epigastric pain (principal); R32 Unspecified urinary incontinence; F17.210 Nicotine dependence, cigarettes, uncomplicated
CPT/HCPCS: 93005; 99213; A9270; G0463

== ENCOUNTER 2024-02-08 11:11 | Outpatient (CLI) | payer OTHER, SELFPAY ==
--- NOTE | ~2024-02-08 | XR_ITS ---
Clinical Indication: Cough PA and lateral views of the chest: Comparison: None Findings: Calcified left basilar granuloma present. The lungs are otherwise clear, without evidence o f focal consolidation or pleural effusion. Cardiomediastinal silhouette is within normal limits. Bon es and soft tissues are unremarkable. Impression: No acute abnormality. Calcified left basilar granuloma. Reviewed, dictated and finalized at location . Impression: No acute abnormality. Calcified left basilar granuloma.
== END 2024-02-08 11:12 | disposition home or self-care (01) ==
PROVIDERS: PCP Family Medicine; Visit Provider Nurse Practitioner Family
DX: J84.10 Pulmonary fibrosis, unspecified (principal)
CPT/HCPCS: 71046

== ENCOUNTER 2024-05-06 08:41 | Day surgery (SDC) | payer OTHER, SELFPAY ==
[2024-04-02 15:10] VITALS: BMI 31.5
[2024-04-19 14:39] VITALS: BMI 33.3
--- NOTE | 2024-05-05 21:06 | PM.HPGS ---
History of Present Illness History of Present Illness Consent: Risks, benefits, and alternatives have been discussed and questions answered. Patient agrees to proceed with procedure. Chief complaint: Gerd without Esophagitis Narrative: Callum Meza is a 29 year old female with chronic reflux symptoms. 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 Spiritual care concerns: No Meds Home Medications and Allergies Home Medications Medication Instructions Recorded Confirmed Type levonorgestrel 17.5 mcg/24 hr (up 1 device intrauterine ONCE 01/15/24 05/06/24 History to 5 yrs) 19.5mg intrauterine device (Kyleena) phentermine 37.5 mg tablet 37.5 mg PO DAILY 04/19/24 05/06/24 History Allergies Allergy/AdvReac Type Severity Reaction Status Date / Time No Known Allergies Allergy Verified 05/06/24 10:02 Exam Const: General: alert Orientation/consciousness: patient oriented x3 Resp: Auscultation: clear to auscultation bilaterally Cardio: Rhythm: regular rhythm GI: GI Palp: Yes Soft to palpation and No Tenderness to palpation present (GI) Neuro: General: patient oriented x3 Assessment and Plan Assessment and plan (1) GERD (gastroesophageal reflux disease): Code(s): K21.9 - Gastro-esophageal reflux disease without esophagitis Status: Acute Assessment and Plan: EGD with possible biopsy or dilatation or cautery.
--- NOTE | 2024-05-06 06:59 | P.PNAN_ITS ---
Anes - Initial Pre Proc Eval Procedure: Operation Date: 05/06/24 11:00 Proposed Procedures p Esophagogastroduodenoscopy - Juvenal Beltran MD Date/Time: 05/06/24 06:59 Surgeon: Juvenal Beltran MD Pre Op Diagnosis: Gerd without Esophagitis Patient Data Age: 29 Gender: F Height: 1.55 m Weight: 80 kg Allergies Allergy/AdvReac Type Severity Reaction Status Date / Time No Known Allergies Allergy Verified 05/06/24 10:02 Home Medications Medication Instructions Recorded Confirmed Type levonorgestrel 17.5 mcg/24 hr (up 1 device intrauterine ONCE 01/15/24 05/06/24 History to 5 yrs) 19.5mg intrauterine device (Kyleena) phentermine 37.5 mg tablet 37.5 mg PO DAILY 04/19/24 05/06/24 History Patient hx anesthesia problems: none Family hx anesthesia problems: none Results Review: All pre-operative results and documents have been reviewed as part of the pre- operative evaluation. 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 Informed Consent: The patient's anesthetic plan and its attendant risks and benefits were discussed with the patient/family/POA. Questions were solicited and answers provided to the satisfaction of the patient/family/POA.
[2024-05-06 10:05] VITALS: BP 106/78; PULSE 50; RESP 16; TEMP 36.8; O2SAT 100; BMI 31.2
[2024-05-06] MEDS: LACTATED RINGERS 1,000 ML 150 ML IV CONT (10:14)
[2024-05-06 11:06] VITALS: BP 95/60; PULSE 55; RESP 16; O2SAT 98
--- NOTE | 2024-05-06 11:15 | WPDANESPN ---
Anes - Prog Note Post-Op Date/Time: 05/06/24 11:15 Cardiovascular status: normal Respiratory status: normal Airway patency: baseline Mental status: baseline Post-Op hydration status: normal Vital Signs: Last Vital Signs Temp 36.8 C 05/06/24 10:05 Pulse 55 L 05/06/24 11:12 Resp 16 05/06/24 11:12 BP 95/60 L 05/06/24 11:12 Pulse Ox 98 05/06/24 11:12 O2 Del Method Room Air 05/06/24 11:12 Pain Score (VAS): 0 I/O: Intake & Output 05/05/24 05/06/24 05/06/24 23:59 07:59 15:59 Intake Total 400 Balance 400 Post-procedural complaints: none Patient Feedback: Patient satisfied with anesthetic care. Other Findings: Patient vital signs back to baseline. Patient denies nausea and vomiting. Patient's pain under control. Patient OK for discharge.
[2024-05-06 11:16] VITALS: BP 97/64; PULSE 50; RESP 16; O2SAT 100
[2024-05-06 11:26] VITALS: BP 109/79; PULSE 64; RESP 16; O2SAT 100
[2024-05-06 11:43] VITALS: BP 125/88; PULSE 50; RESP 16; O2SAT 100
== END 2024-05-06 11:57 | disposition home or self-care (01) ==
PROVIDERS: PCP Family Medicine; Visit Provider Internal Medicine Gastroenterology
PROC: 0DJ08ZZ Inspection of Upper Intestinal Tract, Via Natural or Artificial Opening Endoscopic (ICD-10-PCS; CPT 43235; principal; 2024-05-06 11:00)
DX: K21.9 Gastro-esophageal reflux disease without esophagitis (principal)
CPT/HCPCS: 43239

== ENCOUNTER 2024-05-07 10:51 | Outpatient (NON) | payer OTHER, SELFPAY | END 2024-05-07 10:52 | disposition home or self-care (01) | LOC: ANHLAB 10:54 | PROVIDERS: PCP Family Medicine; Visit Provider Internal Medicine Gastroenterology | DX: K21.9 Gastro-esophageal reflux disease without esophagitis (principal) | CPT/HCPCS: 88305 ==

== ENCOUNTER 2024-05-12 14:11 | Emergency (ER) | payer OTHER, SELFPAY ==
--- NOTE | 2024-05-12 14:12 | ED.FEMALEGU ---
HPI - Female Genitourinary General Chief complaint: Urogenital-Female Stated complaint: YEAST INFECTION Time Seen by Provider: 05/12/24 14:12 Source: patient Mode of arrival: ambulatory Limitations: no limitations History of Present Illness HPI Narrative: Callum is a 29-year-old female patient presenting to the clinic today with complaints of possible yeast infection. She reports she has been taking clarithromycin, amoxicillin, and omeprazole to treat H.pylori/GERD. She reports symptoms have been going on for 3 days with vaginal itching and cottage cheese like discharge. Related Data Home Medications Medication Instructions Recorded Confirmed levonorgestrel 17.5 mcg/24 hr (up 1 device intrauterine ONCE 01/15/24 05/06/24 to 5 yrs) 19.5mg intrauterine device (Kyleena) Allergies Allergy/AdvReac Type Severity Reaction Status Date / Time No Known Allergies Allergy Verified 05/12/24 14:22 Review of Systems Review of Systems: Pertinent positives per HPI. Patient denies any fever, chills, rash, headache, visual changes, dizziness, cough, runny nose, sore throat, shortness of breath, chest pain, palpitations, nausea, vomiting, diarrhea, constipation, abdominal pain, or any urinary issues. 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 There is no relevant family history pertinent to the patient complaint. Exam Narrative: General: Well-developed, well nourished, in no apparent distress. Head: Normocephalic, atraumatic. Cardio: Regular rate and rhythm, s1 and s2 normal, no murmur appreciated. Resp: Clear to auscultation bilaterally, no rhonchi, rales, wheezing or rubs. Abdomen: Soft, pliable, bowel sounds present in all quadrants, non-tender to palpation, no organomegly, no CVAT tenderness. : Deferred Course Course Emergency Course: Portions of this record may have been created with voice recognition software. Level of Care: Express Care Visit Vital Signs Vital signs: Vital Signs Temperature 36.6 C 05/12/24 14:21 Pulse Rate 65 05/12/24 14:21 Respiratory Rate 18 05/12/24 14:21 Blood Pressure 110/54 L 05/12/24 14:21 Pulse Oximetry 100 05/12/24 14:21 Oxygen Delivery Room Air 05/12/24 14:21 Temperature 36.6 C 05/12/24 14:23 Pulse Rate 65 05/12/24 14:23 Respiratory Rate 18 05/12/24 14:23 Blood Pressure 110/54 L 05/12/24 14:23 Pulse Oximetry 100 05/12/24 14:23 Oxygen Delivery Room Air 05/12/24 14:23 Vital signs reviewed MDM - Female Genitourinary MDM Narrative Medical decision making narrative: At the time of visit patient is resting comfortably on the exam table. Patient appears to be nontoxic. Plan: I suspect patient has a vaginal yeast infection. Prescription for Diflucan was sent to the pharmacy. Supportive measures were discussed with the patient and they voiced understanding discharge instructions and agrees to treatment plan. Return precautions reviewed Differential Diagnosis Differential d
[2024-05-12 14:21] VITALS: BP 110/54; PULSE 65; RESP 18; TEMP 36.6; O2SAT 100
[2024-05-12 14:23] VITALS: BP 110/54; PULSE 65; RESP 18; TEMP 36.6; O2SAT 100
== END 2024-05-12 14:39 | disposition home or self-care (01) ==
PROVIDERS: Emergency Provider Nurse Practitioner Family; PCP Nurse Practitioner Family
DX: B37.31 Acute candidiasis of vulva and vagina (principal); F17.210 Nicotine dependence, cigarettes, uncomplicated
CPT/HCPCS: 99213; G0463

== ENCOUNTER 2024-06-03 10:40 | Emergency (ER) | payer OTHER, SELFPAY ==
[2024-06-03 11:05] VITALS: BP 121/72; PULSE 54; RESP 18; TEMP 36.8; O2SAT 100
--- NOTE | 2024-06-03 11:37 | ED.DENTAL ---
HPI - Dental/Oral General Chief complaint: Dental/Oral Stated complaint: LT Side face pain Time Seen by Provider: 06/03/24 11:24 Source: patient and RN notes reviewed Mode of arrival: ambulatory Limitations: no limitations History of Present Illness HPI Narrative: Patient presents today complaining of left upper gumline pain x3 days. Denies tooth pain. She has tried Tylenol and ibuprofen as well as Orajel with some relief. No recent tooth injury. No facial swelling. No fever. Related Data Home Medications Medication Instructions Recorded Confirmed norethindrone 1 mg-ethinyl tablet 06/03/24 06/03/24 estradiol 20 mcg (21)-iron 75 mg (7) tablet (Kylie Fe 09/30 (28)) Allergies Allergy/AdvReac Type Severity Reaction Status Date / Time No Known Allergies Allergy Verified 06/03/24 11:15 Review of Systems Review of Systems: CONSTITUTIONAL: Denies body aches, fever, chills, or sweats. EYES: Denies visual changes, redness, or discharge. ENT: Denies rhinorrhea, congestion, sore throat, or otalgia.+ pain to the left upper gumline CARDIOVASCULAR: Denies chest pain, palpitations, or edema. RESPIRATORY: Denies cough or dyspnea. GASTROINTESTINAL: Denies abdominal pain, nausea, vomiting, or diarrhea. GENITOURINARY: Denies dysuria or hematuria. SKIN: Denies rash, itching, or wounds. MUSCULOSKELETAL: Denies back pain, joint pain, or myalgia. NEUROLOGIC: Denies headache, numbness, tingling, or weakness. PSYCH: Denies depression or anxiety. 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 Please see nursing chart for further information. There is no relevant family history pertinent to the presenting complaint Exam Narrative: GENERAL: Well-appearing, well-nourished, and in no acute distress. HEAD: Normocephalic, atraumatic. EYES: EOMI. No redness or drainage. Conjunctivae normal. ENT: Mucous membranes pink and moist. Throat normal. Uvula midline. Teeth normal. Patient has 3-4 small canker sores to the left upper gumline on a mildly erythematous base, in the area almost connecting to the lip. No swelling to the gumline or face. No dental abscess is noted. NECK: Normal AROM. CHEST: No respiratory distress. EXTREMITIES: Normal range of motion. No edema. SKIN: Warm, dry, no rash. Capillary refill normal. Normal skin turgor. NEURO: No focal deficits. Alert and oriented x3. Gait steady. PSYCH: Normal affect. No signs of depression or anxiety. Course Course Level of Care: Express Care Visit Vital Signs Vital signs: Vital Signs Temperature 98.2 F 06/03/24 11:05 Pulse Rate 54 L 06/03/24 11:05 Respiratory Rate 18 06/03/24 11:05 Blood Pressure 121/72 06/03/24 11:05 Pulse Oximetry 100 06/03/24 11:05 Oxygen Delivery Room Air 06/03/24 11:05 Temperature 98.2 F 06/03/24 11:05 Pulse Rate 54 L 06/03/24 11:05 Respiratory Rate 18 06/03/24 11:05 Blood Pressure 121/72 06/03/24 11:05 Pulse Oximetry 100 06/03/24 11
== END 2024-06-03 11:40 | disposition home or self-care (01) ==
PROVIDERS: Emergency Provider Nurse Practitioner; PCP Nurse Practitioner Family
DX: K12.0 Recurrent oral aphthae (principal); F17.210 Nicotine dependence, cigarettes, uncomplicated
CPT/HCPCS: 99211; G0463

== ENCOUNTER 2024-06-18 16:24 | Outpatient (CLI) | payer OTHER, SELFPAY ==
--- NOTE | ~2024-06-18 | MM_ITS ---
EXAMINATION: MM scrn vernell implant BI w barbie HISTORY: Screening mammogram TECHNIQUE: Craniocaudal and mediolateral oblique 3-D tomosynthesis images with implant displacement a nd synthetic 2-D images were generated. Craniocaudal and mediolateral oblique views of the breasts wi thout implant displacement were obtained using full field digital mammography. CAD analysis was submi tted and interpreted. COMPARISON: No prior mammogram is available for comparison at this institution. BREAST PARENCHYMAL COMPOSITION: Dense: The breasts are heterogeneously dense, which may obscure small masses FINDINGS: There is no evidence of suspicious mass, calcification, or architectural distortion to sugg est malignancy in either breast. There has been no suspicious interval change. IMPRESSION: 1. No mammographic evidence of malignancy. 2. Recommend routine screening mammography in one year. BI-RADS Category 1: Negative Reviewed, dictated and finalized at location B.
== END 2024-06-18 16:25 | disposition home or self-care (01) ==
LOC: ANHIMG 16:27
PROVIDERS: PCP Nurse Practitioner Family; Visit Provider Nurse Practitioner Family
DX: Z12.31 Encounter for screening mammogram for malignant neoplasm of breast (principal)
CPT/HCPCS: 77063; 77067

== ENCOUNTER 2025-07-07 11:26 | Emergency (ER) | payer OTHER, SELFPAY ==
--- NOTE | ~2025-07-07 | XR_ITS ---
EXAMINATION: XR chest 2V DATE: 07/07/2025 12:02 INDICATION: Cough TECHNIQUE: PA and lateral views of the chest were obtained. COMPARISON: Chest radiograph dated 02/08/2024 FINDINGS: Unchanged calcified nodule at the left lung base consistent with old granulomatous disease. No new airspace opacities, pulmonary edema, pleural effusion or pneumothorax. The cardiomediastinal silhouette is normal. Cholecystectomy clips in right upper quadrant. IMPRESSION: 1. No acute cardiopulmonary disease. Reviewed, dictated and finalized at location A.
[2025-07-07 11:30] VITALS: BP 122/81; PULSE 90; RESP 16; TEMP 36.7; O2SAT 100
--- NOTE | 2025-07-07 12:15 | ED.GENADULT ---
HPI - General Adult General Chief complaint: Upper Respiratory Infection Stated complaint: Bilateral Ear Pain / Cough Source: patient Mode of arrival: ambulatory Limitations: no limitations History of Present Illness HPI narrative: Patient presents for evaluation of sick symptoms on and off for several weeks. She indicates her symptoms worsened last night. She reports fever, headache, sinus congestion, thick yellow nasal discharge, sore throat, right-sided ear pain, cough, chills, nausea and diarrhea. No vomiting. No recent sick contacts to her knowledge. She does not smoke. She has been taking Tylenol and cough medication for symptoms. The cough medication was initially effective but has since lost efficacy. Related Data Home Medications ?Medication ?Instructions ?Recorded ?Confirmed ?Last Taken ?Type norethindrone 1 mg-ethinyl tablet 06/03/24 06/03/24 Unknown History estradiol 20 mcg (21)-iron 75 mg (7) tablet (Kylie Fe 09/30 (28)) Allergies Allergy/AdvReac Type Severity Reaction Status Date / Time No Known Allergies Allergy Verified 07/07/25 11:32 Review of Systems Review of Systems: CONSTITUTIONAL: reports fever and chills EYES: Denies visual changes, redness, or discharge. ENT: reports sinus congestion, thick yellow/ green drainage from the nares, sore throat, bilateral otalgia CARDIOVASCULAR: Denies chest pain, palpitations, or edema. RESPIRATORY: reports cough. Denies shortness of breath. GASTROINTESTINAL: Reports nausea and diarrhea. Denies abdominal pain and vomiting GENITOURINARY: Denies dysuria or hematuria. SKIN: Denies rash or itching. MUSCULOSKELETAL: Denies back pain, joint pain, or myalgia. NEUROLOGIC: Denies headache, numbness, dizziness, or weakness. PSYCHIATRIC: Denies anxiety or depression. 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 EYES: PERRLA and EOMI. ENT: Nares clear, no rhinorrhea or epistaxis. Mucous membranes moist. Oropharynx without tonsillar hypertrophy exudate or other lesions. Right tympanic membrane is erythematous. NECK: Supple. No adenopathy or masses. No carotid bruits or JVD CHEST: Clear to auscultation. No respiratory distress. No wheezes rales or rhonchi HEART: Regular rate and rhythm. No murmur heard. Normal peripheral pulses. ABDOMEN: Soft, nontender, nondistended, normal active bowel sounds. EXTREMITIES: Normal range of motion. No edema. SKIN: Warm, dry, no rash. NEURO: No focal deficits. Alert and oriented x3. PSYCH: Normal mood and affect. Course Course Emergency Course: This is a 30-year-old female who presented for evaluation of sick symptoms. Chest x-ray was negative. She has evidence of otitis media on exam. She also meets criteria for bacterial sinusitis based upon duration of time in which she has been symptomatic and mucopurulent nature of discharge. Will discharge with Augmentin, tessalon and prednisone. Increase fluid intake. OTC agents for symptom management. Follow up with primary provider. Go to the ER for worsening symptoms. Pt in agreement with plan of care. Level of Care: Express Care Visit Vital Signs Vital signs: Vital Signs Temperature 36.7 C 07/07/25 11:30 Pulse Rate 90 07/07/25 11:30 Respiratory Rate 16 07/07/25 11:30 Blood Pressure 122/81 07/07/25 11:30 Pulse Oximetry 100 07/07/25 11:30 Oxygen Delivery Room Air 07/07/25 11:30 Temperature 36.7 C 07/07/25 11:30 Pulse Rate 90 07/07/25 11:30 Respiratory Rate 16 07/07/25 11:30 Blood Pressure 122/81 07/07/25 11:30 Pulse Oximetry 100 07/07/25 11:30 Oxygen Delivery Room Air 07/07/25 11:30 Medical Decision Making Vital Signs Vital Signs: Vital Signs Temperature 36.7 C 07/07/25 11:30 Pulse Rate 90 07/07/25 11:30 Respiratory Rate 16 07/07/25 11:30 Blood Pressure 122/81 07/07/25 11:30 Pulse Oximetry 100 07/07/25 11:30 Oxygen Delivery Room Air 07/07/25 11:30 Temperature 36.7 C 07/07/25 11:30 Pulse Rate 90 07/07/25 11:30 Respiratory Rate 16 07/07/25 11:30 Blood Pressure 122/81 07/07/25 11:30 Pulse Oximetry 100 07/07/25 11:30 Oxygen Delivery Room Air 07/07/25 11:30 Imaging Data Radiologist's impression: EXAMINATION: XR chest 2V DATE: 07/07/2025 12:02 INDICATION: Cough TECHNIQUE: PA and lateral views of the chest were obtained. COMPARISON: Chest radiograph dated 02/08/2024 FINDINGS: Unchanged calcified nodule at the left lung base consistent with old granulomatous disease. No new airspace opacities, pulmonary edema, pleural effusion or pneumothorax. The cardiomediastinal silhouette is normal. Cholecystectomy clips in right upper quadrant. IMPRESSION: 1. No acute cardiopulmonary disease. Discharge Plan Discharge Clinical Impression: Sinusitis, Otitis media Patient Disposition: Home Condition: Stable Instructions: Antibiotic Form, Sinusitis (ED), Ear Infection (ED) Patient Language: [place]an Prescriptions: New amoxicillin-pot clavulanate 875-125 mg tablet 1 tablet PO Q12H Qty: 20 0RF benzonatate 200 mg capsule 200 mg PO TID PRN (Reason: cough) Qty: 30 0RF prednisone 50 mg tablet 50 mg PO DAILY Qty: 5 0RF No Action norethindrone-e.estradiol-iron [Kylie Fe 09/30 (28)] 1 mg-20 mcg (21)/75 mg (7) tablet omeprazole 40 mg capsule,delayed release(DR/EC) 40 mg PO BID Qty: 30 0RF Follow-up/Referrals: Scott Cox MD [Physician, Family Practice] Time of Disposition: 12:25
[2025-07-07] MEDS: ACETAMINOPHEN 500 MG TABLET 1000 MG PO (12:33)
--- OUTSIDE RECORDS SUMMARY | 2025-07-07 13:06 | XMS_ITS | Clinical Summary ---
Author Organization [facility] [employer] Address [address] [place] [address] Care Team Providers Care Education Courses Sales Representative Name Role Phone Erika Shaw PA-C Primary Care Provider [phone] Source Comments [facility] [employer] [facility] [employer],non-owned Affiliates and Associated Physician Practices is amultiple site organization consisting of ambulatory clinics and hospital sitesin [place], [place], [place] and [place]. This disclosure is being madepursuant to the Care Everywhere program and may not contain all information available regarding this patient. Last updated 18.[facility] [employer] [facility] [employer] Allergies No known active allergies Medications * Be aware that medications may not be up to date on this document. Alwaysverify current medications with the patient. Lo Loestrin Fe 1 MG-10 MCG / 10 MCG tablet 2 Active acetaminophen (Tylenol) 325 MG tablet Take 2 (two) tablets by mouth every 6 hours Maximum allowable Acetaminophen amount = 4 Grams (4000 mg) / 24 hours. 5 Active lidocaine (Lidoderm) 5 % patch Apply 2 (two) patches to skin once daily Apply patch to most painful area and remove after 12 hours. May reapply a new patch 12 hours later. 60 patch 01/31/2025 11:00 AM CDT 5 Active polyethylene glycol 3350 (Miralax) 17 GM/SCOOP powder Take 17 (seventeen) g by mouth 2 times daily 1020 g 01/31/2025 11:00 AM CDT 5 Active sennosides (Senokot) 8.6 MG tablet Take 1 (one) tablet by mouth once daily 30 tablet 01/31/2025 11:00 AM CDT 5 Active cyclobenzaprin e (Flexeril) 10 MG tablet Take 1 (one) tablet by mouth 3 times daily as needed for Muscle Spasms 90 tablet 01/31/2025 11:00 AM CDT 5 Active hydrOXYzine HCl (Atarax) 10 MG tablet Take 1 (one) tablet by mouth 3 times daily as needed for Itching 90 tablet 01/31/2025 11:00 AM CDT 5 Active docusate sodium (Colace) 100 MG capsule Take 1 (one) capsule by mouth once daily 30 capsule 5 Active Active Problems Problem Noted Date Diagnosed Date Donor, kidney 01/29/2025 Willing to be kidney donor 10/01/2024 Overview (01/28/2025): Images from the original note were not included. Kidney Donor Review Donor Name: Callum Meza Donor type: standard UNOS type: biological related daughter Living Donor Nurse Coordinator: Spencer Canchola RN Test Donor Results Acceptable to proceed with donation? GENERAL ABO Recent Labs Component Name 01/21/25 1319 10/08/24 1311 ABORH O POS O POS Noted Crossmatch FINAL XM negative/HLA perfect match Negative HEME CBC Recent Labs Component Name 01/21/25 1319 10/08/24 1311 WBC 6.4 7.1 HGB 12.0 13.3 HCT 35.9 39.4 PLTCOUNT 235 250 Acceptable INR INR (no units) Date Value 01/21/2025 1.0 10/08/2024 1.0 Acceptable PTT APTT (Seconds) Date Value 01/21/2025 26.9 10/08/2024 27.7 Acceptable METABOLIC CMP BUN (mg/dL) Date Value 01/21/2025 10 Creatinine (mg/dL) Date Value 01/21/2025 0.46 (L) 10/08/2024 0.57 (L) Sodium (mmol/L) Date Value 01/21/2025 140 Potassium (mmol/L) Date Value 01/21/2025 3.6 Chloride (mmol/L) Date Value 01/21/2025 107 CO2 (mmol/L) Date Value 01/21/2025 23 Glucose (mg/dL) Date Value 01/21/2025 74 Calcium (mg/dL) Date Value 01/21/2025 8.9 Protein Total (g/dL) Date Value 01/21/2025 6.7 Albumin (g/dL) Date Value 01/21/2025 4.1 Bilirubin Total (mg/dL) Date Value 01/21/2025 0.6 Alkaline Phosphatase (U/L) Date Value 01/21/2025 55 ALT (U/L) Date Value 01/21/2025 35 AST (U/L) Date Value 01/21/2025 26 eGFR (mL/min/1.73 m2) Date Value 10/08/2024 >90 eGFR by CKD-EPI (mL/min/1.73 m2) Date Value 01/21/2025 >90 10/10/2024 >90 Acceptable Phos Recent Labs Component Name 10/08/24 1311 07/06/22 0138 PHOS 3.1 2.5* Acceptable (Initial Phos low-> normal on repeat) Uric Acid Recent Labs Component Name 10/08/24 1311 URICACID 4.1 Acceptable Lipid profile Recent Labs Component Name 10/08/24 1311 CHOL 173 HDL 51 LDLCALC 99 TRIG 117 Acceptable BMI 28.17 Acceptable Hemoglobin A1c Hemoglobin A1c (%) Date Value 10/08/2024 4.9 Acceptable 2 HR GTT (as needed) Plasma Glucose, 2 Hour (mg/dL) Date Value 10/16/2024 147 Complete d/t BMI >30 in the past and Hx of gestational dm in last (diet-controlled) Interpretation: Prediabetes (Impaired Glucose Tolerance): 140-199 mg/dL A1c WNL -> Ac/Dc Rewinder evaluation complete, counseled on continued weight control/loss RENAL Urinalysis + micro Recent Labs Component Name 01/21/25 1345 10/08/24 1319 11/16/22 1737 COLORU - Straw Yellow CLARITYU - Clear Slt Cloudy* LABSPEC - 1.013 1.009 PHUA 6.0 7.0 6.0 PROTEINU - Negative Negative KETONES - Negative Negative BILIRUBINUR - Negative Negative BLOODU - Negative 2+* NITRITE - Negative Negative LEUKOCYTE - Negative 2+* UROBILINUA Normal Negative Negative RBCUA 0-2 - 6-10* WBCU - - 11-20* SQUAMOUS None Seen - 3-5 MUCOUS - - 1+ Recent Labs Component Name 01/21/25 1345 URINECULT No growth (<100 CFU/mL) Initial with RBC, WBC & squamous epithelial calls-> repeat WNL = Acceptable Cystatin C 127 = Acceptable CrCl Result Latest Reference Range & Units 10/10/24 12:30 Creatinine Clearance (Corrected for BSA) Not Established mL/minute 138 Creatinine Clearance 70.00 - 130.00 mL/minute/1.73m2 144.95 (H) Recent Labs Component Name 01/21/25 1345 01/21/25 1319 10/10/24 1236 10/10/24 1230 CREATININEUR 25.76 - - 37.18 CREATININE - 0.46* - 0.57 CREATCLEAR - - - 144.95* VOLUMETIMDUR - - - 3,200 3,200 3,200 COLLECTHRS - - - 24 24 24 BSA - - - 1.82 CRCLBSA - - - 138 - = values in this interval not displayed. Acceptable 138 ml/min 145 ml/min/ per 1.73 m2 BSA corrected Nuc Med GFR/split function as needed Findings: Blood flow images reveal normal perfusion to both kidneys. The kidneys are normal in size and contours. There is prompt uptake and excretion of the tracer bilaterally. The quantitative values are as follows: Quantitative function Left Right Renography 4 4 Peak time (min) 5 6 Half peak time (min) 53 47 Differential function (%) Impression: 1. Normal function of both kidneys without evidence of obstruction. 2. Differential function is 53% for the left kidney and 47% for the right kidney. > Dictated by Araseli Feliciano MD (Slot Tag Inserter) 10/08/2024 12:24 PM 132 ml/min 133 ml/min/ per 1.73 m2 BSA corrected Split: 47% for the right kidney and 53% for the left kidney Urine Microalbumin Albumin 24 Hour Urine (mg/24 hrs) Date Value 10/10/2024 <16 Urine Albumin/Creatinine Ratio (mg/g) Date Value 10/08/2024 <28 Albumin/Creatinine Ratio Urine (mg/g) Date Value 10/08/2024 See Comment Creatinine Urine (mg/dL) Date Value 01/21/2025 25.76 Albumin Random Urine (ug/mL) Date Value 10/10/2024 <5.0 10/08/2024 <5.0 Acceptable Urine Total Protein Recent Labs Component Name 01/21/25 1345 10/10/24 1230 [id number] - <224* VOLUMETIMDUR - 3,200 3,200 3,200 PROTEINTO <7 <7 Acceptable CTA w/ 3D Findings: Abdominal aorta: The aorta is normal in course and caliber. The celiac, superior mesenteric and inferior mesenteric arteries are patent. Bilateral renal arteries are patent without calcifications. Right Kidney: There is a punctate nonobstructive calculus in the lower pole of the right kidney. No hydronephrosis. Number of arteries: 1 Number of veins: 1 Number of ureters: 1 Kidney height: 11.3 cm (sagittal), 10.8 cm (coronal) Kidney length: 5.5 cm Kidney width: 5.4 cm Kidney volume (mL/cc): 171 mL Renal artery has early bifurcation(<10mm from aorta): No Left Kidney: The left kidney is unremarkable. No hydronephrosis. Number of arteries: 1 Number of veins: 1 Number of ureters: 1 Kidney height: 11.3 cm (sagittal),11.1 cm (coronal) Kidney length: 5.7 cm Kidney width: 5.2 cm Kidney volume (mL/cc): 173 mL Renal artery has early bifurcation(<10mm from aorta): No Lower Chest: Bilateral breast implants are present. A calcified granuloma is noted in the left lower lobe Liver: Normal. Gallbladder and Bile Ducts: The gallbladder is absent. Spleen: Multiple calcified granulomas are noted in the spleen, likely sequelae of prior granulomatous disease. Pancreas: Normal. Adrenals: Normal. Kidneys: Normal. Gastrointestinal: The stomach and visualized loops of large and small bowel are unremarkable. Normal appendix. Mesentery/Peritoneum/Retroperitoneum: No free intraperitoneal air. No free fluid in the abdomen or pelvis. Bladder: Normal. Reproductive Organs: The uterus is normal. Bones: Bone windows demonstrate no suspicious lytic or blastic lesions. The visible osseous structures are intact. Soft tissues: Approximately 3.5 x 4.5 cm measuring, nonenhancing cystic lesion adjacent to the hepatic segments 6 (series 7 image 245) and ascending colon (series 7 image 253). Impression: 1.Bilateral renal measurements and renal artery evaluation, as above. 2.A nonobstructive punctate right renal calculus. No hydronephrosis. The report was drafted by Hossein Garcia MD (rn residential) I, Ghulam Pitts MD have personally reviewed and interpreted this examination/study. > Interpreting Provider: Ghulam Pitts MD on 10/08/2024 10:04 AM A nonobstructive punctate right renal calculus. [facility]ol[facility] . No hydronephrosis. Single arteries bilaterally, no early bifurcation R 171 mL 173 mL 47% for the right kidney and 53% for the left kidney Consider right nephrectomy given punctate right calculus and slightly lower right function Juan M Lora MD Wooley, Cody, RN Cc: Rabia Zimmerman MD Nothing else is needed for her. The lesion is benign. Lily Mcgowan 01/07/2025 Tumor Board Reviewed : Discussion: the cyst has been present since 2021. This is not enhancing. It has been stable for 3 years. 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 No malignant potential. Clinical Trial: none available Board Recommendations: no follow up needed. Cystic lesion adjacent to liver and colon visible on previous imaging 2021: A 3.7 x 3.7 x 3.6 cm well-defined cyst adjacent to the inferior aspect of the liver, posterior to the descending colon without significant surrounding inflammation. This may represent a previously existing cystic lesion or less likely a loculated collection extending from the gallbladder. 2021 MRI: Other findings: There is a 3.8 x 3.7 cm retroperitoneal cyst (series 3, image 19) in the right lower quadrant of the abdomen. 2022: A 3.8 x 3.9 x 4.0 cm cyst in the right retroperitoneum adjacent to the inferior tip of the right hepatic lobe, not significantly changed [facility] for stone risk Sent kit to patient home/confirmed receipt/collection/ send back Latest Reference Range & Units 10/16/24 09:00 Volume Urine (Preservative) 500 - 4,000 mL/24 hr 3,450 Ammonium Urine 15 - 60 mmol/24 hr 31 Calcium Urine <200 mg/24 hr 99 Calcium/Creatinine Ratio Urine 51 - 262 mg/g creat 78 Chloride mmol/24 Hour Urine 70 - 250 mmol/24 hr 95 Citrate Urine >550 mg/24 hr 541 (L) Creatinine Urine Not Applic. mg/24 hr 1,281 Magnesium Urine 30 - 120 mg/24 hr 83 Oxalate Urine 20 - 40 mg/24 hr 26 Phosphorus Urine 600 - 1,200 mg/24 hr 684 Potassium 24 Hour Urine 20 - 100 mmol/24 hr 51 Sodium Urine 50 - 150 mmol/24 hr 125 Urea Nitrogen 24 Hour Urine 6.00 - 14.00 g/24 hr 9.58 Uric Acid Urine <750 mg/24 hr 727 Sulfate Urine 20 - 80 meq/24 hr 40 Volume 3.4 L Slightly low citrate, otherwise WNL SEROLOGIES/ INFECTION CMV Recent Labs Component Name 10/08/24 1311 CMVIGG 2.10* CMVIGM <30.0 Inform recipient team EBV Recent Labs Component Name 10/08/24 1311 EBVABIGG 315.0* EBVIGMAB <36.0 Inform recipient team Hepatitis B Surface Antibody Recent Labs Component Name 10/08/24 1311 HEPBSAB Non-reactive HBVSAB <3.0 Acceptable Hepatitis B Surface Antigen Recent Labs Component Name 01/21/25 1319 10/08/24 1311 HEPBSAG Non-reactive Non-reactive Acceptable Hepatitis B Core Total Antibody Recent Labs Component Name 01/21/25 1319 10/08/24 1311 HEPBCAB Non-reactive Non-reactive Acceptable Hepatitis C Antibody Recent Labs Component Name 01/21/25 1319 10/08/24 1311 HEPCAB Non-reactive Non-reactive Acceptable HIV AG/AB Qualitative Recent Labs Component Name 01/21/25 1319 10/08/24 1311 [id number] Negative Negative Acceptable QUANT Gold Recent Labs Component Name 10/08/24 1311 QUANTTBGPLUS Negative Acceptable Strongyloides Recent Labs Component Name 01/21/25 1319 10/08/24 1311 STRONGYL 0.1 0.1 Acceptable T Cruzi Recent Labs Component Name 01/21/25 1319 10/08/24 1311 TCRUZIGG 0.2 0.2 Acceptable West Nile Recent Labs Component Name 01/21/25 1319 10/08/24 1311 WNILEIGG 0.12 0.23 WNILEIGM 0.02 0.00 Acceptable Syphilis Total with Reflex Recent Labs Component Name 01/21/25 1319 TPALLIDUM Non-reactive Acceptable HEALTH SCREENING Drug Screen Recent Labs Component Name 10/16/24 1154 LABAMPH Negative LABBARB Negative LABBENZ Negative LABOPIA Negative COCAINESCRN Negative PCPUR Negative THCUR Negative METHADONE Negative Acceptable Alcohol Recent Labs Component Name 10/08/24 1311 ETOH <10 Acceptable Nicotine Recent Labs Component Name 10/08/24 1311 NICOTBLD <5 COTINBLD 10 Acceptable PSA N/A (woman) Mammogram N/A: age Pap 10/25/2022 Cytology Gynecological Report Case: [id number] Authorizing Provider: Ashley Castillo, Collected: 10/25/2022 1315 RADIATION CONTROL HEALTH PHYSICIST Ordering Location: [place] [facility] Received: 10/26/2022 1118 First Screen: Rochelle Shaw Specimen: Screening Pap - Imaged, Cervix Statement of Adequacy Satisfactory for evaluation Transformation zone component present Final Diagnosis Negative for Intraepithelial Lesion or Malignancy (NIL). Next due 2025 Q3 year screening schedule Low dose Chest CT (if needed) N/A Smokes single menthol cigarette nightly - counseled to stop Dermatology N/A Colonoscopy N/A - age Cardiopulmonary EKG Acceptable Echo stress test (if needed) N/A CXR FINDINGS/IMPRESSION: Left lower lung retrocardiac well circumscribed opacity which corresponds to left lower lung calcified granuloma seen on same day CT angiogram abdomen pelvis. There is no pleural effusion or pneumothorax. The cardiomediastinal silhouette is normal. The bony thorax is intact. Right upper quadrant surgical clips. The report was drafted by Ana Mo MD (rn residential) 10/08/2024 9:27 AM. I, Leta Snell MD have personally reviewed and interpreted this examination/study. > Interpreting Provider: Leta Snell MD on 10/08/2024 11:57 AM Review granuloma with Pulmonary / Surgery: Juan M Lora MD Wooley, Cody, RN Cc: Rabia Zimmerman MD Nothing else is needed for her. The lesion is benign. Lily Mcgowan 01/07/25 UNOS/CMS COMPLIANCES Independent Donor Advocate MILADIS Urban Completed 11/01/24 Registered Dietitian Transplant Nutrition Evaluation BMI: 28.17, Overweight. Pt is considered to be a good candidate for a Kidney Donation from a Nutrition standpoint. Nutrition Recommendations/Pt instructed to: For Impaired GLU tolerance Eating; Space meals out throughout the day rather than 2 larger meals, distribute evenly healthy carbs for a pattern of 3 - 6 (small) meals per day, eat at the same times, do not skip breakfast, plan meals by selecting something healthy from each of the different food groups, plan snack by selecting one healthy food from one food group, watch portions when eating out, and drink 8 cups of water daily. Exercise: Pt does a good job of going to the gym daily Nettie Hamlin RD Complete Pt agreeable Will continue to follow post donation Clinical Psychologist/SW Completed 11/01/[address] Gutierrez 01/21/2025 Complete UNOS/CMS Education Lamin Canchola RN Complete 10/08/2024 Living Donor Consent PAULO Yang Complete ESRD Risk Prediction Genetic screen (APOL1, ADPKD) Mother ADPKD (recipient) - testing of donor to ensure did not inherit familial variant. 24 hr ABPM (as needed) 129/83 at clinic visit 11/01/24 118/76 at women's clinic 10/28/24 Outstanding tasks Tasks 11/01/24: [facility] testing of mother (ADPKD) -> if pathogenic variant identified, perform focused-familial testing of the donor candidate Update Pap smear to current Smoking cessation: Candidate smokes 1 cigarette per day for weight loss; nicotine screen was negative. She can stop Evaluation of 3.5 x 4.5 cm measuring, non-enhancing cystic lesion adjacent to the hepatic segments 6 (series 7 image 245) and ascending colon - Review with Surgeons ? Tumor Board Review granulomas with Pulmonary / Surgeon: lung, spleen Complete all consultations including with Dietitian: determine if a weight loss goal is needed given impaired glucose tolerance Lemon juice intake for hypocitraturia [facility] focused familial testing for ADPKD is negative Pap due [address] Smith Quit smoking - nicotine screen negative Tumor board cleared lesion - no follow up required Nothing else is needed for her. The lesion is benign. Per Dr. Juan M Lora 01/07/25 For Impaired GLU tolerance Eating; Space meals out throughout the day rather than 2 larger meals, distribute evenly healthy carbs for a pattern of 3 - 6 (small) meals per day, Added lemon to her water daily Completed by: Spencer Canchola, RN Annotated at evaluation 11/01/24 by Rabia Zimmerman MD, PhD Updated 01/08/2025 S/P laparoscopic cholecystectomy 07/06/2022 Resolved Problems Problem Noted Date Diagnosed Date Resolved Date Cholecystitis 07/05/2022 07/05/2022 Diarrhea, unspecified type 07/04/2022 1 RUQ pain 07/04/2022 07/06/2022 Nausea and vomiting, unspeci fied vomiting type 07/04/2022 07/06/2022 Acute cholecystitis due to biliary calculus 07/04/2022 07/06/2022 Immunizations Immunization Administration Dates Next Due DTP, HISTORIC VACCINE 08/23/1994, 993,1993,05/03 DTaP VACCINE IM (6wk-6yrs) 03/21/1997 HEP B VACCINE, PED/ADOL 1993,1993, HIB VACCINE 08/23/1994, 3,1993,05/03 Human Papilloma Virus Bivalent Vaccine 7 Human Papilloma Virus Carmencita valent Vaccine 11/06/2013,09/18/2012,08/14/2012,04/04,01/31/2007 INFLUENZA VACCINE 09/07/2005 INFLUENZA VACCINE, QUADR. (A FLURIA, FLUZONE QUADRIVALENT; 6MO+) (IIV4) 07/19/2016 MENINGOCOCCAL ACWY (MCV4P) VAC IM 01/31/2007 MMR VACCINE 05/14/2018,03/21/1997,04/13/1994 PNEUMOCOCCAL PCV7 CONJ, PEDS 09/26/2000,09/22/19 POLIO OPV 03/21/1997, 4,1993,05/03 TDAP (7yrs+) 08/03/2016 TDAP, HISTORIC VACCINE 03/30/2018,01/31/2007 VARICELLA 01/31/2007,03/21/1997 Family History Medical History Relation Name Comments Renal Disease Cousin Amanda Meza ADPKD + cysts [employer] spots Daughter Katie Vitilog, improved wi th treatment Renal Disease Maternal Aunt Arleen Rosenandez ADPKD Cancer - Breast Maternal Grandmother Millicent Cancer - Colon Maternal Grandmother Millicent Renal Disease Maternal Uncle 1 Shyam Thai ADPKD Renal Disease Maternal Uncle 2 Abraham ADPKD Renal Disease Mother Relation Name Status Comments Brother Alive Cousin Amanda Meza Alive Daughter Katie Alive Father Edwin Andre Alive Maternal Aunt Arleen Andre Alive Maternal Grandmother Millicent Alive Maternal Uncle 1 Shyam Andre Alive Maternal Uncle 2 Abraham Mother Alive Sister 1 Alive Sister 2 Alive Son 1 Wilfredo Alive Son 2 Michael Alive Social History Tobacco Use Types Packs/Day Years Used Date Smoking Tobacco: Never Smokeless Tobacco: Never Tobacco Cessation:Counseling Given: Not Answered Comments:Smokes 1 cigarette nightly advised to quit. Last cig 3 weeks ago Alcohol Use Standard Drinks/Week Comments Never 0 (1 standard drink = 0.6 oz pur e alcohol) AUDIT-C Answer Date Recorded Q1: How often do you have a drink containing alcohol? Never 01/29/2025 Q2: How many drinks containi ng alcohol do you have on a typical day when you are drinking? Patient does not drink Q3: How often do you have si x or more drinks on one occasion? Never 01/29/2025 Overall Financial Resource Strain (CARDIA) Answe r Date Recorded How hard is it for you to pa y for the very basics like food, housing, medical care, and heating? Not hard at all 01/29/2025 [facility] [place] [facility] - Occupational Stress Questionnaire Answer Date Recorded Do you feel stress - tense, restless, nervous, or anxious, or unable to sleep at night because your mind is troubled all the time - these days? Not at all 01/29/2025 Hunger Vital Sign Answer Date Recorded Within the past 12 months, y ou worried that your food would run out before you got the money to buy more. Never true 01/30/20 25 Within the past 12 months, t he food you bought just didn't last and you didn't have money to get more. Never true 01/29/2025 PRAPARE - Transportation Answer Date Re corded In the past 12 months, has l ack of transportation kept you from medical appointments or from getting medications? No 01/10 In the past 12 months, has l ack of transportation kept you from meetings, work, or from getting things needed for daily living? No 01/29/2025 Housing Stability Vital Sign Answer Gibran e Recorded In the last 12 months, was t here a time when you were not able to pay the mortgage or rent on time? No 01/29/2025 In the past 12 months, how m any times have you moved where you were living? 0 01/29/2025 At any time in the past 12 m [place], were you homeless or living in a retirement (including now)? 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 Sexual Orientation Not on file Last Filed Vital Signs Vital Sign Reading Time Taken Comments Blood Pressure 104/63 03/11/2025 10:57 AM CDT Pulse 60 03/11/2025 10:57 AM CDT Temperature 36.6 C (97.8 F) 03/11/2025 10:57 AM CDT Respiratory Rate 18 02/11/2025 10:56 AM CDT Oxygen Saturation 100% 03/11/2025 10:57 AM CDT Inhaled Oxygen Concentration 21% 01/29/2025 3 :35 PM CDT Weight 77.1 kg (170 lb) 03/11/2025 10:57 AM CDT Height 157.5 cm (5' 2) 02/11/2025 10:56 AM CDT Body Mass Index 31.09 02/11/2025 10:56 AM CDT Plan of Treatment Health Maintenance Due Date Last Done Comments DEPRESSION SCREENING 09/11/2024 COVID-19 VACCINE ( season) 2025 08/09/2022, 08/11/2021, 12/10/2020, Additional history exists INFLUENZA VACCINE (#1) 2025 , 07/19/2016, 09/07/2005 PAP SMEAR 10/25/2025 10/25/2022 DTAP/TDAP/TD VACCINES (9 - Td or Tdap) 03/30/2028 03/30/2018, 08/03/2016, 01/31/2007, Additional history exists ZOSTER VACCINE (1 of 2) 2043 HEPATITIS B VACCINE Completed 1993, 1993, 1993 HIB VACCINE Completed 08/23/1994, 08/12, 1993, Additional history exists PNEUMOCOCCAL VACCINE Aged Out 09/26/2000, 09/22/19 No longer eligible based on patient's age to complete this topic MENINGOCOCCAL GROUPS A/C/Y/W VACCINE Aged Out 01/31/2007 No longer eligible based on patient's age to complete this topic HPV VACCINE Completed 11/06/2013, 04/2013, 08/14/2012, Additional history exists HIV SCREENING Completed 10/10/2024, 10/12, 12/08/2020 HEPATITIS C SCREENING Completed 01/21/2025, 025 MENINGOCOCCAL (Group B) VACCINE SHARED DECISION-MAKING Aged Out No longer eligible based on patient's age to complete this topic Procedures Procedure Name Priority Date/Time Associated Diagnosis Comments HEPATITIS C AB SCREEN RFLX NAAT QUANT STAT 01/21/2025 1:19 PM CDT Willing to be kidney donor from Last 3 Months or Most Recently Relevant to Health Maintenance Results * HEPATITIS C AB SCREEN RFLX NAAT QUANT (01/21/2025 1:19 PM CDT) Hepatitis C Antibody Non-react candy Non-reac tive 01/21/2025 2:27 PM CDT [facility] Comment:Hepatitis C Antibody screen indicates no serologic evidence of past or current infection with Hepatitis C Virus. Patients with unexplained liver disease who are immunocompromised or suspected of having acute Hepatitis C infection may benefit from Nucleic Acid Test (CONSTANZA) for Hepatitis C Viral RNA to confirm Hepatitis C status. Blood BLOOD SPECIMEN / Unknown Lab Venipuncture / Unknown 01/21/2025 1:19 PM CDT 01/21/2025 1:38 PM CDT us Olu Gutierrez MD LAB - CHEMISTRY ORDERA BLES Final Result [facility] [address] [place] [phone], [facility] [place] [phone] from Last 3 Months or Most Recently Relevant to Health Maintenance Insurance LIVING DONOR LIVING DONOR * Guarantor: BUBBA ANDRE Account Type Relation to Patient Date of Phone Billing Address Personal/Family Transplant Recipient 1995 Advance Directives * Full Code (Latest Code Status on File) Date Activated Date Inactivated Comments 07/04/2022 2:44 AM 07/06/2022 3:22 PM Care Teams Education Courses Sales Representative Relationship Specialty Start Date End Date Erika Shaw PA-C [address] [place] [id number] PCP - General Physician Md Pediatric Allergist 02/11/25
--- OUTSIDE RECORDS SUMMARY | 2025-07-07 13:07 | XMS_ITS ---
Author Organization [facility] Address [address] [place] [address] Care Team Providers Care Frame Wirer Name Role Phone Erika Shaw PA-C Primary Care Provider [phone] Transplant Episode Kidney Donor [facility] ([place], [place]) - [facility] Organ Donated: Right Kidney Recovered on 01/29/2025 Marked as Active Follow-up on 01/29/2025 Kidney CoordinatorSpencer Canchola RN Phone: N/A Fax: N/A Email: N/A Care Team Name Role Phone Fax Email Spencer Canchola RN Kidney Coordinator N/A N/A N /A Livia Shin MD Primary Care Provider [phone] N/A Mckayla Delgado Operating Room Technician N/A N/A N/A Maureen Martell LMSW Manager [place] [phone] N/A N/A Events Post-Donation Pre-Donation Admitted: 01/29/2025 Referred: 09/07/2023 Recovered: 01/29/2025 Evaluation began: 10/11/2023 Discharged: 01/31/2025 Committee: 01/09/2025
--- OUTSIDE RECORDS SUMMARY | 2025-07-07 13:07 | XMS_ITS | Data Portability ---
Author Organization [facility] Address [address] [place] [address] Assessment No assessment recorded. Plan of Treatment Reminders Order Date Submit Date Provider Last Modified By Organization Details Last Modified Time Details Appointments None recorded. Lab hbcab (hepatitis B core Ab) igm, serum 2024 025 [facility] (Lab), [address] [place], [address], 5 12:35:47 HBsAg (hepatitis B surface Ag), serum 2024 025 [facility] (Lab), [address] [place], [address], 5 12:35:45 hepatitis C virus Ab, serum 2024 025 [facility] (Lab), [address] [place], [address], 5 12:35:46 HIV 1+2 AB + HIV 1 p24 Ag, qualitative immunoassay , serum 2024 025 [facility] (Lab), [address] [place], [address], 5 12:35:46 RPR (rapid plasma reagin), serum 2024 025 [facility] (Lab), [address] [place], [address], 5 12:35:47 unlisted lab - women's health swab plus, MARYBEL 2023 024 [facility] (Lab), [address], [place], [address], 4 08:18:07 Referral None recorded. Procedures None recorded. Surgeries None recorded. Imaging US, transvagina l 2024 025 [email or web address], [address], [place], [address], 5 22:34:30 US, pelvis, complete 2024 025 [address], [address], [place], [address], 11:18:27 Medication Orders Loestrin Fe 1/20 (28-Day) 1 mg-20 mcg (21)/75 mg (7) tablet 2024 025 [facility], [address] [place] [address], [address], 5 12:54:35 Loestrin Fe 1/20 (28-Day) 1 mg-20 mcg (21)/75 mg (7) tablet 2024 025 [facility], [address] [place] [address], [address], 5 11:31:25 metronidazo le 500 mg tablet 2024 025 [facility], [address] [place] [address], [address], 5 12:57:26 Patient TargetsNo targets recorded. Patient InstructionsNo instructions recorded. Reason for Referral None Reported. Results Created Date Observation Date Name Description Value Unit Range Abnormal Flag Note LastModifiedBy Organization Detail LastModifiedTime 07/09/20 24 07/09/2024 [facility]OM[facility] '[facility] H SWAB PLUS, MARYBEL bacterial vaginosis (bv), tma Positi ve negati ve abnormal Not Available [facility] (Lab) [address] [place], [address], 07/11/2024 08:18:07 07/09/20 24 07/09/2024 [facility] MARYBEL sergio species, tma Negati ve negati ve Not Available [facility] (Lab) [address] [address], [place], [address], 07/11/2024 08:18:07 07/09/2007/09/2024 WOMEN 'S HEALT H SWAB PLUS, MARYBEL sergio glabrata, tma Negati ve negati ve Not Available [facility] (Lab) [address] [address], [place], [address], 07/11/2024 08:18:07 07/09/20 24 07/09/2024 [facility] MARYBEL trichomonas vaginalis, tma Negati ve negati ve Not Available [facility] (Lab) [address] [place], [address], 07/11/2024 08:18:07 07/09/20 24 07/09/2024 [facility] MARYBEL chlamydia trachomatis, PCR Negati ve negati ve Not Available [facility] (Lab) [address] [place], [address], 07/11/2024 08:18:07 07/09/20 24 07/09/2024 WOMEN 'S HEALT H SWAB PLUS, MARYBEL neisseria gonorrhoeae, PCR Negati ve negati ve Bacte rial vagin osis detec ts the follo wing bacte praful assoc iated with bacte rial vagin osis (BV): Lacto bacil sade (L. gasse ri, L. crisp atus and L. jense allan), Gardn erell a vagin nas, and Atopo bium vagin ae. A singl e quali tativ e resul t is repor edd base on instr ument softw are to deter mine BV posit candy or negat candy statu s. The Sofy da speci es group tests for C. albic ans, C. tropi calis , C. parap radha is, C. dubli niens is. Testi ng is perfo rmed using the Trans cript ion Media edd Ampli ficat ion metho d. Tests for Sofy da glabr sampson, Trich omona s vagin nas, Chlam ydia trach omati s, and Neiss eria gonor rhoea e are also inclu ded in this panel . Not Available [facility] (Lab) [address], [place], [address], 07/11/2024 08:18:07 10/10/1910/10/2024 HEPAT ITIS B SURFA CE ANTIG EN hepatitis B surface antigen Non-re active non-re active This assay was perfo rmed using [employer] ratio n reage nts and test kits. Value s obtai napoleon with other assay metho ds or kits canno t be used inter joaquin eably . Not Available [facility] (Lab) [address], [place], [address], 10/11/2024 12:35:45 10/10/1910/10/2024 HIV 1/2 ANTIG EN/AN TIBOD Y, REFLE X CONFI RMATI ON HIV antigen/anti body Nonrea ctive nonrea ctive HIV-1 antig en and HIV-1 /HIV- 2 antib odies were not detec edd. No labor atory evide nce of HIV infec tion. Not Available [facility] (Lab) [address], [place], [address], 10/11/2024 12:35:46 10/10/1910/10/2024 HEPAT ITIS C ANTIB OLIVA SCREE N, REFLE X TO CONFI RMATI ON hepatitis C antibody Non-re active non-re active Antib odies to HCV Not Detec edd, does not exclu de the possi bilit y of expos ure to HCV. Not Available [facility] (Lab) [address] [address], [place], [address], 10/11/2024 12:35:46 10/10/19 25 10/10/2024 HEPAT ITIS B CORE, IGM hepatitis B core IgM antibody Non-re active non-re active IgM anti- HBc not detec edd. Does not exclu de the possi bilit y of expos ure to or infec tion with HBV. Not Available [facility] (Lab) [address], [place], [address], 10/11/2024 12:35:47 10/10/1910/10/2024 RPR SCREE N, REFLE X TITER /CONF IRMAT ION RPR screen Nonrea ctive nonrea ctive Not Available [facility] (Lab) [address], [place], [address], 10/11/2024 12:35:47 10/17/19 25 10/17/2024 CT/GC AND TRICH OMONA S VAGIN NAS (RRNA ), URINE chlamydia trachomatis, PCR Negati ve negati ve Not Available [facility] (Lab) [address], [place], [address], 10/18/2024 13:06:29 10/17/19 25 10/17/2024 CT/GC AND TRICH OMONA S VAGIN NAS (RRNA ), URINE neisseria gonorrhoeae, PCR Negati ve negati ve Not Available [facility] (Lab) [address], [place], [address], 10/18/2024 13:06:29 10/17/19 25 10/17/2024 CT/GC AND TRICH OMONA S VAGIN NAS (RRNA ), URINE trichomonas vaginalis ribosomal RNA (rrna) Negati ve negati ve Not Available [facility] (Lab) [address], [place], [address], 10/18/2024 13:06:29 02/1310/24/2024 US, trans vagin al No observ ation record ed. [email or web address] [place] [address] [address], [place], [address], 10/24/2024 12:16:11 10/24/1910/24/2024 US, trans vagin al No observ ation record ed. evelyn Tami [address], [place], [address], 10/28/2024 13:43:48 Result Notes None recorded. Problems Name Problem SNOMED Code Status Onset Date Resolution Date Notes Provider Name and Address Organization Details Recorded Time Primigra john [id number] Completed 201011/03/2020 Supervis ion of normal first pregnanc y;Practi ce ID: 0001 Rizwana busch [facility] 17:26:55 anatomy study Completed 201011/03/2020 [facility];P ractice ID: 0001 [facility] 17:25:51 Glucose toleranc e test during pregnanc y - baby not yet delivere d outside referenc e range [id number] Completed 201011/03/2020 Gestatat ional Diabetes Antepart um;Pract ice ID: 0001 Rizwana busch [facility] 17:18:54 Maternal care for diminish ed movement s Completed 201011/03/2020 Decrease d movement s, affectin g manageme nt of mother, antepart um conditio n or complica tion;Pra ctice ID: 0001 Rizwana busch [facility] 17:26:40 Delivery normal [id number] Completed 201011/03/2020 Normal delivery ;Practic e ID: 0001 Rizwana busch [facility] 17:25:38 Single live from singleto n pregnanc y [id number] Completed 201011/03/2020 Mother with single liveborn ;Practic e ID: 0001 Rizwana busch, [facility] 17:27:03 Postpart um care Completed 201011/03/2020 Routine postpart um follow-u p;Record ed Elsewher e: No Locat ion: [facility] S ource: EHR Blade Filer chiquita: Pushpa Loyd ce ID: 0001 Benson lable Time: 04:00:00 PM Rizwana Diallo [facility] 17:26:46 Insertio n of intraute rine contrace ptive device Completed 201011/03/2020 INSERTIO N OF IUD;Jm rded Elsewher e: No [facility]: EHR Blade Filer chiquita: Pushpa Loyd ce ID: 0001 Benson lable Time: 10:30:00 AM Rizwana busch [facility] 17:26:32 Uses IUD (intraut erine device) contrace ption [id number] Completed 201111/03/2020 Surveill ance of intraute rine contrace ptive device;R ecorded Elsewher e: No Locat ion: [facility] S ource: EHR Blade Filer chiquita: Pushpa Loyd ce ID: 0001 Benson lable Time: 04:00:00 PM Riwzana busch [facility] 17:26:34 Hernia of abdomina l cavity [id number] Completed 201111/03/2020 Hernia of other specifie d sites without mention of obstruct ion or gangrene ;Recorde d Elsewher e: No [facility]: EHR Blade Filer chiquita: Pushpa Loyd ce ID: 0001 Benson lable Time: 08:30:00 AM Rizwana Diallo null, [facility] 17:26:24 Removal of intraute rine device Completed 201211/03/2020 REMOVAL OF IUD;Jm rded Elsewher e: No Locat ion: [facility] S ource: EHR Blade Filer chiquita: N Leoti ce ID: 0001 Benson lable Time: 08:30:00 AM Rizwana busch, [facility] 17:26:58 Dysfunct ional uterine bleeding Completed 201211/03/2020 Other disorder s of menstrua tion and other abnormal bleeding from female genital tract;Re corded Elsewher e: No Locat ion: [facility] N Leoti ce ID: 0001 Benson lable Time: 08:30:00 AM Rizwana busch, [facility] 17:25:41 Female genital organ symptoms [id number] Completed 201211/03/2020 Unspecif ied symptom associat ed with female genital organs;R ecorded Elsewher e: No Locat ion: [facility] S ource: EHR Blade Filer chiquita: N Leoti ce ID: 0001 Benson lable Time: 08:15:00 AM Rizwana busch [facility] 17:25:49 Family planning surveill ance Completed 201311/03/2020 Surveill ance of other contrace ptive method;R ecorded Elsewher e: No Locat ion: [facility] S ource: EHR Blade Filer chiquita: N Leoti ce ID: 0001 Benson lable Time: 10:00:00 AM Rizwana busch [facility] 17:25:48 Educatio n Completed 201311/03/2020 Other general counseli ng and advice on contrace ptive manageme nt;Recor ded Elsewher e: No Locat ion: [facility] S ource: EHR Blade Filer chiquita: Y Leoti ce ID: 0001 Benson lable Time: 10:00:00 AM Rizwana busch, [facility] 17:25:46 Speciali zed medical examinat ion Completed 201411/03/2020 ROUTINE OFFICE COPY SELECTOR EXAMINAT ION;Jm rded Elsewher e: No Locat ion: [facility] S ource: EHR Blade Filer chiquita: N Practi ce ID: 0001 Benson lable Time: 08:45:00 AM Rizwana busch, [facility] 17:27:13 Obesity [id number] Completed 201411/03/2020 Obesity; Recorded Elsewher e: No Locat ion: [facility] S ource: EHR Blade Filer chiquita: N Leoti ce ID: 0001 Benson lable Time: 08:45:00 AM Rizwana busch, [facility] 17:26:43 Cytologi c finding Completed 201411/03/2020 Papanico laou smear of cervix with low grade squamous intraepi thelial lesion (LGSIL); Recorded Elsewher e: No Locat ion: [facility] S ource: EHR Blade Filer chiquita: N Leoti ce ID: 0001 Benson lable Time: 11:00:00 AM Rizwana busch, [facility] 17:25:36 Finding of regulari ty of menstrua l cycle Completed 201411/03/2020 Irregula r bleeding ;Recorde d Elsewher e: No Locat ion: [facility] S ource: EHR Blade Filer chiquita: N Practi ce ID: 0001 Benson lable Time: 10:45:00 AM Rizwana busch, [facility] 17:25:54 Low grade squamous intraepi thelial lesion on cervical Papanico laou smear [id number] Completed 201411/03/2020 LGSIL on pap smear of cervix;R ecorded Elsewher e: No [facility]: EHR Blade Filer chiquita: N Rach ce ID: 0001 Benson lable Time: 10:45:00 AM Rizwana busch [facility] 17:26:39 Infectio n screenin g Completed 201511/03/2020 Encounte r for screenin g for oth infec/pa rastc diseases ;Recorde d Elsewher e: No Locat ion: [facility] S ource: EHR Blade Filer chiquita: N Rach ce ID: 0001 Benson lable Time: 11:30:00 AM Rizwana busch [facility] 17:26:31 Syphilis test finding [id number] Completed 201511/03/2020 Encntr screen for infectio ns w sexl mode of transmis s;Record ed Elsewher e: No Locat ion: [facility] S ource: EHR Blade Filer chiquita: N Rach ce ID: 0001 Benson lable Time: 11:30:00 AM Rizwana busch [facility] 17:27:15 Gestatio n less than 9 weeks [id number] Completed 201511/03/2020 Less than 8 weeks gestatio n of pregnanc y;Record ed Elsewher e: No Locat ion: [facility] S ource: EHR Blade Filer chiquita: N Rach ce ID: 0001 Benson lable Time: 11:30:00 AM Rizwana busch [facility] 17:25:55 Secondar y amenorrh ea [id number] Completed 201511/03/2020 Secondar y amenorrh ea;Recor ded Elsewher e: No [facility]: EHR Blade Filer chiquita: N Rach ce ID: 0001 Benson lable Time: 11:30:00 AM Rizwana Diallo null, [facility] 17:27:02 Gestatio n period, 13 weeks [id number] Completed 201511/03/2020 13 weeks gestatio n of pregnanc y;Record ed Elsewher e: No Locat ion: [facility] S ource: EHR Blade Filer chiquita: N Leoti ce ID: 0001 Benson lable Time: 09:15:00 AM Rizwana Diallo null, [facility] 17:25:57 Uterine size for dates discrepa ncy Completed 201511/03/2020 Uterine size-ruben e discrepa ncy, first trimeste r;Record ed Elsewher e: No [facility]: EHR Blade Filer chiquita: N Rach ce ID: 0001 Benson lable Time: 09:15:00 AM Rizwana Diallo null, [facility] 1 17:27:19 Pregnanc y, childbir th and puerperi um finding Completed 201511/03/2020 Encounte r for supervis ion of normal 1st pregnanc y, 2nd trimeste r;Record ed Elsewher e: No Locat ion: [facility] S ource: EHR Blade Filer chiquita: N Rach ce ID: 0001 Benosn lable Time: 09:30:00 AM Rizwana Diallo null, [facility] 17:26:[address] Concept Completed 201511/03/2020 Decrease d movement s, second trimeste r, unsp;Rec orded Elsewher e: No Locat ion: [facility] Pushpa Loyd ce ID: 0001 Benson lable Time: 11:15:00 AM Rizwana Diallo null, [facility] 02/23/202 1 17:27:06 Gestatio n period, 20 weeks [id number] Completed 201511/03/2020 20 weeks gestatio n of pregnanc y;Record ed Elsewher e: No Locat ion: [facility] figueroa [facility] S ource: EHR Blade Filer chiquita: N Practi ce ID: 0001 Benson lable Time: 11:15:00 AM Rizwana busch, [facility] 17:26:[address] Concept Completed 201511/03/2020 Decrease d movement s, second trimeste r, fetus 1;Record ed Elsewher e: No Locat ion: [facility] figueroa [facility] S ource: EHR Blade Filer chiquita: N Practi ce ID: 0001 Benson lable Time: 10:45:00 AM Rizwana busch, [facility] 17:27:07 prematur e rupture of membrane s [id number] Completed 201511/03/2020 Pretrm edgardo ROM, unsp time betw rupt and onset labr, 2nd tri;Prac damaris ID: 0001 Rizwana Diallo [facility], [facility] 17:26:54 Gestatio n period, 19 weeks [id number] Completed 201511/03/2020 19 weeks gestatio n of pregnanc y;Practi ce ID: 0001 Rizwana busch, [facility] 17:25:59 heart finding Completed 201511/03/2020 Abnlt in heart rate and rhythm comp labor and delivery ;Recorde d Elsewher e: No Locat ion: John figueroa [facility] S ource: EHR Blade Filer chiquita: N Practi ce ID: 0001 Benson lable Time: 08:59:24 AM Rizwana busch, [facility] 17:25:53 Gestatio n period, 36 weeks [id number] Completed 201511/03/2020 36 weeks gestatio n of pregnanc y;Record ed Elsewher e: No Locat ion: Debanastacia carolina [facility] S ource: EHR Blade Filer chiquita: N Leoti ce ID: 0001 Benson lable Time: 10:30:00 AM Rizwana busch, [facility] 17:26:17 Finding of trunk structur e Completed 201511/03/2020 Oth diseases and conditio ns compl preg/chl dbrth;Re corded Elsewher e: No [facility]: EHR Blade Filer chiquita: N Leoti ce ID: 0001 Benson lable Time: 10:30:00 AM Rizwana busch, [facility] 17:27:18 Normal pregnanc y in multigra john [id number] Completed 201511/03/2020 Encounte r for suprvsn of normal pregnanc y, third trimeste r;Record ed Elsewher e: No [facility]: EHR Blade Filer chiquita: N Practi ce ID: 0001 Benson lable Time: 08:45:00 AM Rizwana busch, [facility] 17:26:[address] Concept Completed 201511/03/2020 Decrease d movement s, third trimeste r, unsp;Rec orded Elsewher e: No [facility]: EHR Blade Filer chiquita: N Practi ce ID: 0001 Benson lable Time: 09:52:00 AM Rizwana busch, [facility] 17:27:09 Term pregnanc y delivere d [id number] Completed 201511/03/2020 Encounte r for full-ter m uncompli cated delivery ;Practic e ID: 0001 Rizwana busch, [facility] 02/23/202 1 17:27:16 Gestatio n period, 39 weeks [id number] Completed 201511/03/2020 39 weeks gestatio n of pregnanc y;Leoti ce ID: 0001 Rizwana busch, [facility] 17:26:21 Lochia finding Completed 201611/03/2020 Encounte r for routine postpart um follow-u p;Record ed Elsewher e: No [facility]: EHR Blade Filer chiquita: N Practi ce ID: 0001 Benson lable Time: 03:15:00 PM Rizwana busch, [facility] 17:26:36 Puerpera l endometr itis [id number] Completed 201611/03/2020 Endometr itis postpart um;Recor ded Elsewher e: No [facility]at [facility] S ource: EHR Blade Filer chiquita: N Practi ce ID: 0001 Benson lable Time: 03:15:00 PM Rizwana busch, [facility] 17:26:56 Low risk human papillom avirus deoxyrib onucleic acid detected in specimen from cervix [id number] Completed 201611/03/2020 Cervical low risk HPV DNA test positive ;Recorde d Elsewher e: No Locat ion: [facility] S ource: EHR Blade Filer chiquita: N Practi ce ID: 0001 Benson lable Time: 02:00:00 PM Rizwana busch, [facility] 1 17:26:28 Human papillom avirus deoxyrib onucleic acid detected , high risk on cervical specimen [id number] Completed 201611/03/2020 Cervical high risk HPV DNA test positive ;Recorde d Elsewher e: No [facility]: [facility] S ource: EHR Blade Filer chiquita: N Practi ce ID: 0001 Benson lable Time: 02:39:48 PM Rizwana busch, [facility] 17:26:26 Atypical squamous cells of undeterm ined signific ance on cervical Papanico laou smear [id number] Completed 201611/03/2020 Atyp squam cell of undet signfc cyto smr crvx (ASC-US) ;Recorde d Elsewher e: No Locat ion: [facility] S ource: EHR Blade Filer chiquita: N Rach ce ID: 0001 Benson lable Time: 10:30:00 AM [facility] 17:25:27 Screenin g for malignan t neoplasm of cervix Completed 201611/03/2020 Screenin g for malignan t neoplasm s of the cervix;R ecorded Elsewher e: No Locat ion: [facility] S ource: EHR Blade Filer chiquita: Pushpa Loyd ce ID: 0001 Benson lable Time: 05:30:00 PM [facility] 17:27:[address] Concept Completed 201611/03/2020 Anxiety disorder , unspecif ied;Jm rded Elsewher e: No Locat ion: [facility] S ource: EHR Blade Filer chiquita: Pushpa Loyd ce ID: 0001 Benson lable Time: 05:30:00 PM Rizwana busch [facility] 17:27:05 Body mass index 30+ - obesity [id number] Completed 201611/03/2020 Body mass index (BMI) 32.0-32. 9, adult;Re corded Elsewher e: No Locat ion: [facility] S ource: EHR Blade Filer chiquita: Pushpa Loyd ce ID: 0001 Benson lable Time: 05:30:00 PM Rizwana busch [facility] 17:25:29 Amenorrh ea [id number] Completed 201711/03/2020 Amenorrh ea;Recor ded Elsewher e: No Locat ion: [facility] S ource: EHR Blade Filer chiquita: N Practi ce ID: 0001 Benson lable Time: 05:00:00 PM Rizwana busch [facility] 17:18:[address] Concept Completed 201711/03/2020 Encntr for client services account manager exam (general ) (routine ) w/o abn findings ;Recorde d Elsewher e: No Locat ion: [facility] S ource: EHR Blade Filer chiquita: N Practi ce ID: 0001 Benson lable Time: 05:00:00 PM Rizwana busch [facility] 17:27:12 Pregnanc y detectio n examinat ion Completed 201711/03/2020 Encounte r for pregnanc y test, result positive ;Recorde d Elsewher e: No Locat ion: [facility] S ource: EHR Blade Filer chiquita: N Practi ce ID: 0001 Benson lable Time: 05:00:00 PM Rizwana busch [facility] 17:26:49 Antenata l screenin g Completed 201711/03/2020 Encounte r for antenata l screenin g for nuchal transluc ency;Rec orded Elsewher e: No Locat ion: [facility] S ource: EHR Blade Filer chiquita: N Practi ce ID: 0001 Benson lable Time: 05:15:00 PM Rizwana busch [facility] 17:18:59 Antenata l screenin g for malforma tion Completed 201711/03/2020 Encounte r for antenata l screenin g for malforma tions;Re corded Elsewher e: No Locat ion: [facility] S ource: EHR Blade Filer chiquita: N Practi ce ID: 0001 Benson lable Time: 03:00:00 PM Rizwana busch [facility] 17:25:26 Past pregnanc y history of gestatio nal diabetes mellitus [id number] Completed 201711/03/2020 Personal history of gestatio nal diabetes ;Recorde d Elsewher e: No Locat ion: [facility] S ource: EHR Blade Filer chiquita: N Leoti ce ID: 0001 Benson lable Time: 11:45:00 AM Rizwana busch, [facility] 17:26:25 Pelvic and perineal pain [id number] Completed 201711/03/2020 Pelvic and perineal pain;Rec orded Elsewher e: No Locat ion: [facility] S ource: EHR Blade Filer chiquita: N Leoti ce ID: 0001 Benson lable Time: 11:45:00 AM Rizwana busch, [facility] 17:26:45 Blood leukocyt e number above referenc e range [id number] Completed 201711/03/2020 Elevated white blood cell count, unspecif ied;Jm rded Elsewher e: No Locat ion: [facility] S ource: EHR Blade Filer chiquita: N Leoti ce ID: 0001 Benson lable Time: 01:00:00 PM Rizwana busch [facility] 17:26:29 Gestatio n period, 30 weeks [id number] Completed 201711/03/2020 30 weeks gestatio n of pregnanc y;Practi ce ID: 0001 Rizwana busch, [facility] 17:26:[address] Concept Completed 201711/03/2020 Matern care for abnlt fetl hrt rate or rhym, 3rd tri, unsp;Rec orded Elsewher e: No Locat ion: [facility] S ource: EHR Blade Filer chiquita: N Practi ce ID: 0001 Benson lable Time: 04:15:00 PM Rizwana busch [facility] 17:27:10 Gestatio n period, 32 weeks [id number] Completed 201711/03/2020 32 weeks gestatio n of pregnanc y;Record ed Elsewher e: No Locat ion: [facility] [place] [facility] S ource: EHR Blade Filer chiquita: N Practi ce ID: 0001 Benson lable Time: 09:15:00 AM Rizwana busch, [facility] 17:26:03 Gestatio n period, 33 weeks [id number] Completed 201711/03/2020 33 weeks gestatio n of pregnanc y;Record ed Elsewher e: No Locat ion: [facility] S ource: EHR Blade Filer chiquita: N Leoti ce ID: 0001 Benson lable Time: 09:30:00 AM Rizwana busch, [facility] 17:26:05 Gestatio nal diabetes mellitus [id number] Completed 201711/03/2020 Gestatio nal diabetes mellitus in pregnanc y, diet controll ed;Recor ded Elsewher e: No Locat ion: [facility] S ource: EHR Blade Filer chiquita: N Leoti ce ID: 0001 Benson lable Time: 03:00:00 PM Rizwana busch [facility] 17:26:23 Gestatio n period, 34 weeks [id number] Completed 201711/03/2020 34 weeks gestatio n of pregnanc y;Record ed Elsewher e: No Locat ion: [facility] S ource: EHR Blade Filer chiquita: N Practi ce ID: [id number] Benson lable Time: 03:30:00 PM Rizwana busch [facility] 17:26:06 Uterine size for dates discrepa ncy Completed 201711/03/2020 Uterine size-ruben e discrepa ncy, third trimeste r;Record ed Elsewher e: No [facility] S ource: EHR Blade Filer chiquita: N Practi ce ID: 0001 Benson lable Time: 03:30:00 PM Rizwana busch, [facility] 17:27:20 Gestatio n period, 35 weeks [id number] Completed 201711/03/2020 35 weeks gestatio n of pregnanc y;Record ed Elsewher e: No [facility] S ource: EHR Blade Filer chiquita: N Practi ce ID: [id number] Benson lable Time: 03:00:00 PM Rizwana busch, [facility] 17:26:08 Gestatio n period, 37 weeks [id number] Completed 201711/03/2020 37 weeks gestatio n of pregnanc y;Record ed Elsewher e: No [facility] S ource: EHR Blade Filer chiquita: N Practi ce ID: 0001 Benson lable Time: 01:00:00 PM Rizwana busch, [facility] 17:26:19 Gestatio n period, 38 weeks [id number] Completed 201711/03/2020 38 weeks gestatio n of pregnanc y;Record ed Elsewher e: No [facility] E[facility] Blade Filer chiquita: N Practi ce ID: 0001 Benson lable Time: 11:00:00 AM Rizwana busch, [facility] 17:26:20 Low back pain [id number] Completed 201711/03/2020 Low back pain;Rec orded Elsewher e: No [facility] S ource: EHR Blade Filer chiquita: N Practi ce ID: 0001 Benson lable Time: 11:00:00 AM Rizwana busch [facility] 17:26:37 Precipit ate labor [id number] Completed 201711/03/2020 Precipit ate labor;Pr actice ID: 0001 Rizwana busch, [facility] 17:26:48 Procedur e by method Completed 201711/03/2020 Encounte r for other general counseli ng and advice on contrace ption;Re corded Elsewher e: No Locat ion: [facility] S ource: EHR Blade Filer chiquita: N Practi ce ID: 0001 Benson lable Time: 10:15:00 AM Rizwana busch [facility] 17:25:44 Pregnanc y test negative [id number] Completed 201711/03/2020 Encounte r for pregnanc y test, result negative ;Recorde d Elsewher e: No Locat ion: [facility] S ource: EHR Blade Filer chiquita: N Practi ce ID: 0001 Benson lable Time: 09:45:00 AM Rizwana busch, [facility] 17:26:51 Clinical finding Completed 201711/03/2020 Presence of (intraut erine) contrace ptive device;R ecorded Elsewher e: No [facility]: EHR Blade Filer chiquita: N Practi ce ID: 0001 Benson lable Time: 09:45:00 AM Rizwana busch [facility] 17:25:32 Contrace ptive sheath status [id number] Completed 201811/03/2020 Encounte r for routine checking of IUD;Jm rded Elsewher e: No [facility]: EHR Blade Filer chiquita: N Practi ce ID: 0001 Benson lable Time: 01:00:00 PM Rizwana busch [facility] 17:25:33 Disorder of intraute rine contrace ptive device Completed 201811/03/2020 [facility] compl of intraute rine contrace ptive device, init encntr;R ecorded Elsewher e: No Locat ion: [facility]ueroa [facility] S ource: EHR Blade Filer chiquita: Pushpa Baileyti ce ID: 0001 Benson lable Time: 03:00:00 PM Rizwana busch, [facility] 17:25:39 Micturit ion finding Completed 201811/03/2020 Urinary incontin ence;Rec orded Elsewher e: No Locat ion: [facility] S ource: EHR Blade Filer chiquita: Pushpa Baileyti ce ID: 0001 Benson lable Time: 01:45:00 PM Rizwana busch, [facility] 17:25:30 Acute vaginiti s [id number] Completed 201811/03/2020 Vaginiti s;Record ed Elsewher e: No [facility]: EHR Blade Filer chiquita: N Leoti ce ID: 0001 Benson lable Time: 01:30:00 PM Rizwana Dial[facility] 17:18:56 Dysuria [id number] Completed 201811/03/2020 Dysuria; Recorded Elsewher e: No [facility] E[facility] Blade Filer chiquita: N Practi ce ID: 0001 Benson lable Time: 11:30:00 AM Rizwana busch [facility] 17:25:43 Cyst of vulva [id number] Completed 201811/03/2020 Vulvar cyst;Rec orded Elsewher e: No Locat ion: John figueroa [facility] S ource: EHR Blade Filer chiquita: N Leoti ce ID: 0001 Benson lable Time: 11:30:00 AM Rizwana busch, [facility] 17:25:35 Problem Notes None recorded. Procedures Surgical History Date Name Laterality Status Provider Name and Address Organization Details Recorded Time 05/15/20 24 IUD Removal completed Mert Smith MD [address], [place], [address], [facility] 05/15/2024 23:20:44 01/11/20 24 Date of Last Pap Smear completed Alia Pitts [facility] 05/15/2024 16:34:32 03/23/20 23 IUD Insertion completed Ashley Castillo [facility]- [address], [place], [address], [facility] 03/23/2023 18:21:55 02/25/20 21 IUD Removal completed Ashley Castillo [facility]- [address], [place], [address], [facility] 02/24/2021 17:33:49 12/16/19 17 Colposcopy completed [facility] 11/23/2020 14:40:16 09/11/19 17 liposuction of subcutaneous tissue completed [facility] 11/23/2020 14:41:35 09/11/19 12 repair of umbilical hernia completed [facility] 11/23/2020 14:41:01 09/11/19 09 Tonsillectomy completed [facility] 11/23/2020 14:40:43 Imaging Results None recorded. Procedure Notes None recorded. Medical Equipment None Reported. Allergies No known drug allergies Medications Name Sig Start Date Stop Date Status Note LastModified by Organization Details LastModified Time cyclobenz aprine 10 mg tablet take 1 tablet by oral route every 12 hours 12/18 completed Prescrib ed Elsewher e: No Locat ion: [place] [facility] odify By: jared kilpatrick DateTime : 05/07/20 18 11:00:00 AM Not Available Not Available Not Available amoxicill in 500 mg capsule 10/10 completed Not Available Not Available Not Available Mirena 21 mcg/24 hr (up to 8 years) 52 mg intrauter ine device Take by intraute rine route. 03/26 completed Not Available Not Available Not Available oxybutyni n chloride ER 10 mg tablet,ex tended release 24 hr TAKE 1 TABLET BY MOUTH ONCE DAILY 01/10 completed Not Available Not Available Not Available azithromy sophia 250 mg tablet TAKE 2 TABLETS BY MOUTH ON DAY 1, AND THEN TAKE 1 TABLET BY MOUTH ONCE A DAY ON DAY 2 THROUGH DAY 5 11/18 completed Not Available Not Available Not Available Necon 35 (28) 1 mg-35 mcg tablet take 1 tablet by oral route every day for 28 days 09/07 completed Prescrib ed Elsewher e: No [facility] By: ivonne kilpatrick DateTime : 08/11/20 15 10:45:00 AM Not Available Not Available Not Available ibuprofen 800 mg tablet TAKE ONE TABLET BY MOUTH EVERY 8 HOURS NEEDED FOR PAIN DO NOT EXCEED 3 TABLETS IN A 24 HOUR PERIOD 03/23 completed Not Available Not Available Not Available ofloxacin 0.3 % eye drops INSTILL 1 TO 2 DROPS INTO AFFECTED EYE(S) EVERY 2 TO 4 HOURS FOR 2 DAYS AND THEN 1 TO 2 DROPS 4 TIMES DAILY FOR 4 DAYS 01/10 completed Not Available Not Available Not Available fluconazo le 150 mg tablet TAKE 1 TABLET BY MOUTH EVERY OTHER DAY 10/10 completed Not Available Not Available Not Available clarithro mycin 500 mg tablet 10/10 completed Not Available Not Available Not Available ondansetr on HCl 8 mg tablet TAKE ONE TABLET BY MOUTH EVERY 8 HOURS NEEDED FOR NAUSEA 03/23 completed Not Available Not Available Not Available fluconazo le 200 mg tablet TAKE ONE TABLET BY MOUTH A ONE TIME DOSE 08/12 completed Not Available Not Available Not Available metronida zole 0.75 % (37.5 mg/5 gram) vaginal gel INSERT 1 APPLICAT ORFUL INTO VAGINA ONCE DAILY FOR 5 DAYS 10/10 completed Not Available Not Available Not Available prednison e 20 mg tablet TAKE 2 TABLETS BY MOUTH ONCE DAILY FOR 5 DAYS 10/25 completed Not Available Not Available Not Available metronida zole 500 mg tablet TAKE 1 TABLET BY MOUTH TWICE DAILY FOR 7 DAYS 10/28 completed Not Available Not Available Not Available phentermi ne 37.5 mg tablet TAKE 1 TABLET BY MOUTH ONCE DAILY 10/28 completed Not Available Not Available Not Available acetamino phen 300 mg-codein e 30 mg tablet TAKE ONE TO TWO TABLETS EVERY 4 - 6 HOURS NEEDED FOR PAIN 03/23 completed Not Available Not Available Not Available valacyclo vir 500 mg tablet Take 1 tablet by mouth once daily 2024 active Not Available Not Available Not Avai lable sulfameth oxazole 800 mg-trimet hoprim 160 mg tablet TAKE 1 TABLET BY MOUTH EVERY 12 HOURS 08/12 completed Not Available Not Available Not Available omeprazol e 40 mg capsule,d elayed release 10/10 completed Not Available Not Available Not Available tramadol 50 mg tablet TAKE 1 TO 2 TABLETS BY MOUTH EVERY 4 TO 6 HOURS NEEDED FOR PAIN 10/10 completed Not Available Not Available Not Available acetamino phen 500 mg tablet TAKE 2 TABLETS BY MOUTH THREE TIMES DAILY NEEDED FOR PAIN 10/25 completed Not Available Not Available Not Available phentermi ne 30 mg capsule Take 1 capsule every day by oral route. 03/23 completed Not Available Not Available Not Available lancets check BS QID 12/18 completed Prescrib ed Leo e: No Locat ion: [facility] odify By: jared kilpatrick DateTime : 03/19/20 18 03:49:18 PM Not Available Not Available Not Available dicyclomi ne 20 mg tablet TAKE 1 TABLET BY MOUTH EVERY 6 - 8 HOURS NEEDED FOR ABDOMINA L CRAMPING 03/23 completed Not Available Not Available Not Available cephalexi n 500 mg capsule TAKE 1 CAPSULE BY MOUTH 4 TIMES DAILY FOR 7 DAYS active Not Available Not Available No t Available neomycin- polymyxin -dexameth 3.5 mg/mL-10, 000 unit/mL-0 .1% eye drops INSTILL 1 DROP INTO AFFECTED EYE(S) EVERY 3 TO 4 HOURS FOR 7 DAYS 01/10 completed Not Available Not Available Not Available clotrimaz ole-betam ethasone 1 %-0.05 % topical cream APPLY CREAM TOPICALL Y TO AFFECTED AREA TWICE DAILY IN THE MORNING AND IN THE EVENING FOR 2 WEEKS 10/10 completed Not Available Not Available Not Available prednison e 50 mg tablet TK 1 T PO D FOR 5 DAYS 08/12 completed Not Available Not Available Not Available betametha sone dipropion ate 0.05 % topical cream APPLY THIN LAYER TOPICALL Y TO AFFECTED AREA(S) ONCE DAILY 10/10 completed Not Available Not Available Not Available docusate sodium 100 mg capsule TAKE 1 CAPSULE DAILY active Not Available Not Available No t Available oxybutyni n chloride ER 5 mg tablet,ex tended release 24 hr 10/25 completed Not Available Not Available Not Available cephalexi n 500 mg tablet TAKE ONE TABLET BY MOUTH TWICE A DAY 03/23 completed Not Available Not Available Not Available mupirocin 2 % topical ointment APPLY TOPICALL Y THREE TIMES DAILY 08/12 completed Not Available Not Available Not Available norethind josse acetate 1 mg-ethiny l estradiol 20 mcg tablet take 1 tablet by oral route every day 12/15 completed Prescrib jorgito Bailey e: No Locat ion: [facility] odify By: amshu kilpatrick DateTime : 10/11/19 17 01:41:12 PM Not Available Not Available Not Available ibuprofen 600 mg tablet TAKE 1 TABLET BY MOUTH THREE TIMES DAILY NEEDED FOR 7 DAYS 03/26 completed Not Available Not Available Not Available polyethyl florence glycol 3350 17 gram/dose oral powder 10/25 completed Not Available Not Available Not Available ondansetr on 4 mg disintegr ating tablet TAKE 1 TABLET BY MOUTH EVERY 8 HOURS NEEDED FOR NAUSEA AND VOMITING 03/23 completed Not Available Not Available Not Available fluticaso ne propionat e 50 mcg/actua tion nasal spray,[employer] SHAKE LIQUID AND USE 2 SPRAYS IN EACH NOSTRIL DAILY 11/18 completed Not Available Not Available Not Available clotrimaz ole 1 % topical cream APPLY TO THE AFFECTED AND SURROUND ING AREAS OF SKIN BY TOPICAL ROUTE 2 TIMES PER DAY IN THE MORNING AND EVENING 10/10 completed Not Available Not Available Not Available phentermi ne 37.5 mg capsule take 1 capsule (37.5MG) by oral route every day before breakfas t 02/04 completed Prescrib ed Elsewher e: Yes Loca tion: [facility] odify By: sylwia duarte DateTime : 07/04/20 13 08:30:00 AM Not Available Not Available Not Available Ortho Tri-Cycle n (28) 0.18 mg(7)/0.2 15mg(7)/0 .25 mg(7)-0.0 35 mg tablet TAKE ONE TABLET BY MOUTH ONCE DAILY 03/05 completed Prescrib ed Elsewher e: No Locat ion: [facility] odify By: ritu kilpatrick DateTime : 02/05/20 15 08:45:00 AM Not Available Not Available Not Available naproxen 500 mg tablet TAKE 1 TABLET BY MOUTH TWICE DAILY NEEDED 10/25 completed Not Available Not Available Not Available diazepam 5 mg tablet TAKE 1 TABLET BY MOUTH EVERY 6 HOURS NEEDED FOR MUSCLE SPASM 10/10 completed Not Available Not Available Not Available amoxicill in 875 mg-potass ium clavulana te 125 mg tablet TK 1 T PO Q 12 H FOR 10 DAYS 08/12 completed Not Available Not Available Not Available oxycodone 5 mg tablet 10/25 completed Not Available Not Available Not Available solifenac in 10 mg tablet TAKE 1 TABLET BY MOUTH ONCE DAILY 10/10 completed Not Available Not Available Not Available Lo Loestrin Fe 1 mg-10 mcg (24)/10 mcg (2) tablet TAKE 1 TABLET BY MOUTH ONCE DAILY 10/25 completed Not Available Not Available Not Available Triveen-D uo DHA 29 mg-1 mg-400 mg oral pack take 2 by Oral route once for 30 days 03/31 completed Prescrib ed Elsewher e: No Locat ion: [facility] odify By: ivonne kilpatrick DateTime : 03/02/20 16 11:30:00 AM Not Available Not Available Not Available Prenate Elite 26 mg iron-1 mg tablet take 1 by Oral route every day for 1 day 02/04 completed Prescrib ed Elsewher e: No Locat ion: [facility] [place] [facility] odify By: sylwia duarte DateTime : 12/18/19 14 10:00:00 AM Not Available Not Available Not Available PERSONAL LOAN SPECIALIST-PNV-DH A 28 mg iron-1 mg-200 mg capsule take 1 capsule by oral route every day 11/03 completed Prescrib ed Elsewher e: No Locat ion: [facility] odify By: kendrick chi DateTime : 02/28/20 11:23:16 AM Not Available Not Available Not Available Kylie Fe 09/30 (28) 1 mg-20 mcg (21)/75 mg (7) tablet TAKE 1 TABLET BY MOUTH ONCE DAILY active Not Available Not Available No t Available Pazeo 0.7 % eye drops INSTILL 1 DROP INTO EACH EYE ONCE DAILY 11/04 completed Not Available Not Available Not Available Kyleena 17.5 mcg/24 hr (up to 5 years) 19.5 mg intrauter ine device Take 1 device by intraute rine route. 10/10 completed Not Available Not Available Not Available Ozempic 04/04 completed Not Available Not Available Not Available Nextstell is 3 mg-14.2 mg (28) tablet TAKE 1 TABLET BY MOUTH ONCE DAILY FOR 90 DAYS 01/09 completed Not Available Not Available Not Available Vitals Date Recorded Body height Body mass index (BMI) Body weight Systolic And Diastolic Provider Name and Address Organization Details Last Updated DateTime 10/10/2024 156.21 cm 29.7 kg/m2 61847.78 g 110/73 mm[Hg] TAZ Sargent [facility] 10/10/2024 11:13:06 Date Recorded Body height Body mass index (BMI) Body weight Systolic And Diastolic Provider Name and Address Organization Details Last Updated DateTime 10/17/2024 156.21 cm 30.3 kg/m2 53316.56 g 117/74 mm[Hg] TAZ Sargent [facility] 10/17/2024 10:27:59 Date Recorded Body height Body mass index (BMI) Body weight Systolic And Diastolic Provider Name and Address Organization Details Last Updated DateTime 10/28/2024 156.21 cm 30.5 kg/m2 88640.15 g 118/76 mm[Hg] Alia Hong [facility] 10/28/2024 12:28:23 Date Recorded Body height Body mass index (BMI) Body weight Systolic And Diastolic Provider Name and Address Organization Details Last Updated DateTime 07/09/2024 156.21 cm 32.3 kg/m2 28737.07 g 108/69 mm[Hg] Reanna Yates [facility] 07/09/2024 12:28:46 Social History Question Answer Notes LastModified by Organizat ion Details LastModified Time Tobacco Smoking Status Never Smoker [facility] 11/18/2021 11:20:13 Do You Have An Advance Directive? No Information n ot available 11/18/2021 Are You Blind Or Do You Have Difficulty Seeing? No Information n ot available 11/18/2021 What Is Your Level Of Caffeine Consumption? None Information not available 11/18/2021 How Much Tobacco Do You Chew? None Information not available 11/18/2021 In The 14 Days Before Symptom Onset, Have You Had Close Contact With A Laboratory-confirm ed COVID-19 While That Case Was Ill? No Information n ot available 11/18/2021 In The 14 Days Before Symptom Onset, Have You Had Close Contact With A Person Who Is Under Investigation For COVID-19 While That Person Was Ill? No Information not available 11/18/2021 Have You Been To An Area Known To Be High Risk For COVID-19? No Information not available 11/18/2021 Are You Deaf Or Do You Have Serious Difficulty Hearing? No Information not available 11/18/2021 What Type Of Diet Are You Following? REGULAR Information n ot available 11/18/2021 What Is The Highest Grade Or Level Of School You Have Completed Or The Highest Degree You Have Received? [id number] Information not available 11/18/2021 Are There Any Guns Present In Your Home? No Information not available 11/18/2021 Do You Use Protection During Sex? No Information not available 11/18/2021 Do You Use Your Seat Belt Or Car Seat Routinely? Yes Information not available 11/18/2021 Do You Have Smoke And Carbon Monoxide Detectors In Your Home? No Information not available 11/18/2021 How Much Tobacco Do You Smoke? No Information not available 11/18/2021 Have You Used IV Drugs? No Information not available 11/18/2021 Do You Have Difficulty Walking Or Climbing Stairs? No Information not available 10/25/2022 Sex: Unknown Functional Status Question Answer Note LastModified by Organizat ion Details LastModified Time Do you use any illicit or recreational drugs? No Information not available 11/18/2021 Do you or have you ever used any other forms of tobacco or nicotine? Yes Information not available 11/18/2021 What is your level of alcohol consumption? None Information not available 11/18/2021 Are you able to walk independently without assistance or assistive devices? YESWOREST Information not available 11/18/2021 Are you able to care for yourself independently? Yes Information not available 10/25/2022 Do you have difficulty dressing, bathing, grooming, or toileting? No Information not available 10/25/2022 Do you or have you ever used e-cigarettes or vape? Current user of electronic cigarettes Information not available 11/18/2021 What is your exercise level? Occasional Information not available 11/18/2021 Mental Status Question Answer Note LastModified by Organization D etails LastModified Time Do you feel stressed (tense, restless, nervous, or anxious, or unable to sleep at night)? [id number] Information not available 11/18/2021 Family History Relationship Description Onset Age of this Age Resolved Age Notes LastModified by Organization Details LastModified Time Mother Kidney disease [email or web address] Not available 2020 14:38:27 Sister Asthma [email or web address] Not available 11/23/2020 14:38:36 Maternal Grandmother Malignant neoplasm of colon [email or web address] Not available 2020 14:39:06 Maternal Grandmother Malignant neoplasm of breast Not available 2021 11:21:23 Maternal Aunt Kidney disease [email or web address] Not available 2020 14:39:21 Maternal Aunt Malignant neoplasm of colon [email or web address] Not available 2020 14:39:49 Maternal Uncle Kidney disease [email or web address] Not available 2020 14:39:23 Maternal Uncle Diabetes mellitus [email or web address] Not available 2020 14:39:43 Paternal Uncle Diabetes mellitus [email or web address] Not available 2020 14:39:43 Medical History Condition Response Allergies (Food, seasonal, environmental ) N Other Y Breast Cancer N Drug/Latex Allergies/Reactions N Blood Transfusion N Dermatologic Disorders N Lung Disease N Defects or Inherited Disease N Breast Problem N Gestational Diabetes N Hematologic disorders N Anesthesia Complications N History of STI N Deep Vein Thrombosis N Polycystic ovary syndrome N Anxiety Disorder N Autoimmune disease N Arthritis N Infertility N Polyps N Acid Reflux (GERD) N History of abnormal pap Y Cancer N Stroke N Varicosities N Neurologic/Epilepsy N Endometriosis N High Cholesterol N Headaches N Fibromyalgia N Kidney Disease N Heart Problems N Kidney or Bladder Problems N Thyroid Problems N GI Problems N Eating Disorder N Anemia N Art (IVF or FET) N Psychiatric Illness N Ovarian Cancer N Diabetes N Pulmonary (TB, Asthma) N Hepatitis/Liver Disease N Eczema N Urinary Tract Infection N Abuse/Domestic Violence N Asthma N Trauma/Violence N Depression/ depression N Heart Disease N Pre-Eclampsia N Hypertension N Osteoporosis N Thrombophilias N Gynecological History Statement/Question Response Abnormal Pap Yes Flow Moderate Date of Last Mammogram Date of LMP 10/12/2024 N On BCP's at Conception? N STIs/STDs Y Was last menstrual period normal N HPV Vaccine Y Colposcopy 12/15/2016 Duration of Flow (days) 14 Current Control Method BCPs Age at First Child 16 Are cycles usually normal N Date of Last Colonoscopy Sexually Active? Y Menses Monthly N Date of DEXA bone scan Age of first menstrual cycle 12 Date of Last Pap Smear 01/11/2024 Sexual Problems? N LMP Definite N Obstetrics History GPAL:G 3 P 3 0 0 3 Type Value Full Term 3 Living 3 Total 3 Past Encounters Encounter ID Performer Location Encounter Start Date Encounter Closed Date Diagnosis/Indication Diagnosis SNOMED-CT Code Diagnosis ICD10 Code Diagnosis IMO Codes Diagnosis Note [id number] Ashley Castillo [facility] [address] [address] 08/12/2020 12:17:37 08/12/2020 13:12:59 Gynecologic examination 62533797 Z01.419 Take Calcium with Vitamin D 1200mg daily if not receiving in daily diet. It is strongly advised to have an annual flu shot and up can obtain at most pharmacies . If you have not had a TDap shot in the last 10 years you should obtain one as well. Discussed with patient & provided with informatio n regarding Gardisil vaccine to prevent the 4 strains for HPV that cause cervical cancer if under age 26. Encourage safe sexual practices, to use condoms and limit partners if not already in a monogamous relationsh ip. Do monthly self breast exams. Have mammogram yearly or every other year depending on family history. BRCA testing is now available for patients with strong genetic history of female cancer. If interested contact the office. Engage in daily exercise of low impact aerobic exercise 45-60 minutes 4-5 times weekly. Avoid tobacco and illicit drugs as well as using moderation with alcohol intake less than 1-2 8 oz beverages daily. This lifestyle behavior pattern will lead to less health conditions and longer life span. If BMI greater than 25 weight watchers or dietary consult advised. Patient received above instructio ns, and questions have been answered. If you have any questions please call or respond to this email. Patient was made aware of the patient portal and may obtain a paper copy of today's plan if desired. Pap updated monogamous relationsh ip Declined std screening No issues or questions BC: mirena IUD [id number] Samantha Ramos CNM [facility] [address] [address] 11/04/2020 12:19:16 11/06/2020 15:31:33 Postcoital bleeding 74346360 N93.0 Postcoital bleeding x 3 months. No pain. Pelvic u/s and follow up scheduled. [id number] Mert Smith MD [facility] [address],[place] [address] 11/23/2020 16:33:55 11/23/2020 17:17:32 Postcoital bleeding 74336329 N93.0 [id number] Mert Smith MD [facility] [address],[place] [address] 11/23/2020 16:34:11 11/24/2020 17:59:17 Ectropion of cervix 54103160 N86 patient was observed to have a significan t cervical ectropion. Patient reports also , after being asked , about mucousy vaginal discharge. talked about treatment for postcoital bleeding and mucus vaginal discharge associated with ectropion. She is going to consider her treatment options. [id number] Ashley Castillo [place] [address],[place] [address] 12/08/2020 09:18:41 12/09/2020 10:16:52 Sexually transmitted infectious disease 9905370 A64 Will contact with results. Time spent in visit is a total of 15 mins with at least 50% of visit consisting of counseling and review of plan of care. Additional precaution aneesh measures were taken to minimize potential exposure to the Covid-19 virus during this patient s visit, including available hand civil rights attorney upon arrive, temperatur e check and being asked a series of screening questions. All staff wore face coverings during this encounter, as well as provided additional cleaning and sanitizing of all surfaces, including countertop s, pens, chairs, door handles, light switches, etc, prior to and following the patient s visit. [id number] Ashley Castillo [facility] [address],[place] [address] 02/24/2021 17:00:06 2021 15:31:00 Pain in pelvis 58535658 R10.2 IUD misplaced on exam today.IUD pulled.Pat ient instantly felt better and able to sit upright comfortabl y. We agreed to STD screening as a precaution & will take abx for inflammati on irritation from this issue.Swab sent. Call if sx's return and we will schedule for US. Time spent in visit is a total of 26 mins with at least 50% of visit consisting of counseling and review of plan of care. Patient is to contact office or go to nearest ED/Urgent care if fever >/= 100.1, pain, excessive bleeding, unusual drainage or swelling in area of concern; or experienci ng worsening sx's or new onset of concerning sx's. Understand ing verbalized . All questions answered to patient satisfacti on. Contracept ion care management [id number] Z30.9 Wants other form BC Discussed all control options in great detail. Pt would like to start ocp. She is aware of the risks and benefits. She does not have any medical condition that is contraindi cated with the use of estrogen containing control. Pt will start her pills on the first monday following the start of her period. She is aware it is not effective for control the first month. She is also aware of the importance of taking at the same time every day. Encouraged use of condoms as the pill does not protect against STD's. Will return in 3 months for med check. Consent was read and signed. Pt verbalized understand ing. RTO x 1mos to see how she is doing. Removal of intrauterine device [id number] Z30.432 She states the symptoms are of new onset. Patient is here due to the approachin g due date or the nature of her IUD and wishes to have it removed. We discussed the timing of the replacemen t with the next bleed or the need to abstain if she no longer has regular cycles. She expressed understand ing. It was explained that she may have bleeding or spotting after the removal of the device today as well. If cannot see the strings of this device we will need to get an US image to make that the device is still in place and not in an unobtainab le position. She expressed understand ing of all the above instructio ns. [id number] Ashley Castillo , [facility] [address] [address] 03/26/2021 16:32:57 03/29/2021 17:36:01 Contraception care management 458653020 Z30.9 Patient is here today for a medicaton check of control. She voices goals of therapy have been met with use of this therapy. She denies neg side effects. She is eating, drinking, sleeping well; moods are stable & periods are well regulated. Wishes to continue this method of BC. Appropriat e to continue this medication . Rx sent Genital he rpes simplex 30940319 A60.9 Reviewed [facility] HSV informatio n.[facility] handout given.We agreed on Suppressio n therapy which she feels she would like to pursue.Saqib l do 6mos & then we will f/u and decide if d/c. [id number] Ashley Castillo , [facility] [address],[place] [address] 11/18/2021 10:16:38 11/18/2021 11:45:08 Gynecologic examination 84164571 Z01.419 Take Calcium with Vitamin D 1200mg daily if not receiving in daily diet. It is strongly advised to have an annual flu shot and up can obtain at most pharmacies . If you have not had a TDap shot in the last 10 years you should obtain one as well. Discussed with patient & provided with informatio n regarding Gardisil vaccine to prevent the 4 strains for HPV that cause cervical cancer if under age 26. Encourage safe sexual practices, to use condoms and limit partners if not already in a monogamous relationsh ip. Do monthly self breast exams. Have mammogram yearly or every other year depending on family history. BRCA testing is now available for patients with strong genetic history of female cancer. If interested contact the office. Engage in daily exercise of low impact aerobic exercise 45-60 minutes 4-5 times weekly. Avoid tobacco and illicit drugs as well as using moderation with alcohol intake less than 1-2 8 oz beverages daily. This lifestyle behavior pattern will lead to less health conditions and longer life span. If BMI greater than 25 weight watchers or dietary consult advised. Patient received above instructio ns, and questions have been answered. If you have any questions please call or respond to this email. Patient was made aware of the patient portal and may obtain a paper copy of today's plan if desired. Pap updated monogamous relationsh ip Declined std screening No issues or questions BC: Skylar LAGOS--having some BTB on this method. We discussed trial of Nextstelli s x 3mos f/u med check.Gett ing a manas chavez over this summer 2021. Secondary dysmenorrhea 03824754 N94.5 [id number] Ashley Castillo , [facility] [address],[place] [address] 02/08/2022 13:01:10 02/08/2022 13:45:13 Contraception care management [id number] Z30.9 Patient is here today for a medicaton check of control. She voices goals of therapy have been met with use of this therapy. She denies neg side effects. She is eating, drinking, sleeping well; moods are stable & periods are well regulated. Wishes to continue this method of BC. Appropriat e to continue this medication . Time spent in visit is a total of 15 mins with at least 50% of visit consisting of counseling and review of plan of care. [id number] Ashley Castillo [facility] [address],[place] [address] 10/25/2022 12:05:14 10/25/2022 13:34:01 Gynecologic examination 97589924 Z01.419 Take Calcium with Vitamin D 1200mg daily if not receiving in daily diet. It is strongly advised to have an annual flu shot and up can obtain at most pharmacies . If you have not had a TDap shot in the last 10 years you should obtain one as well. Discussed with patient & provided with informatio n regarding Gardisil vaccine to prevent the 4 strains for HPV that cause cervical cancer if under age 26. Encourage safe sexual practices, to use condoms and limit partners if not already in a monogamous relationsh ip. Do monthly self breast exams. Have mammogram yearly or every other year depending on family history. BRCA testing is now available for patients with strong genetic history of female cancer. If interested contact the office. Engage in daily exercise of low impact aerobic exercise 45-60 minutes 4-5 times weekly. Avoid tobacco and illicit drugs as well as using moderation with alcohol intake less than 1-2 8 oz beverages daily. This lifestyle behavior pattern will lead to less health conditions and longer life span. If BMI greater than 25 weight watchers or dietary consult advised. Patient received above instructio ns, and questions have been answered. If you have any questions please call or respond to this email. Patient was made aware of the patient portal and may obtain a paper copy of today's plan if desired. Pap/std updated monogamous relationsh ip Requested std screening No issues or questions Sexually t ransmitted infectious disease 0968453 A64 Contracept ion care management [id number] Z30.9 Happy on OCPRF sent x 1yr [id number] Ashley Castillo , [facility] [address] [address] 03/23/2023 17:48:49 03/24/2023 16:05:13 Insertion of intrauterine contraceptive device [id number] Z30.430 She has been counseled on all of the r/b/a of placement of an intrauteri ne device that include but are not limited to uterine perforatio n, injury to cervix, vagina, bladder, and bowel.Risk s of bleeding due to injury or increased irregular bleeding due to progestin effect of the device. Risks of infection would be increased within the first 21 days of placement with concommita nt cervicitis . She understand s that the device will need to be removed in this instance due to increased risk of Pelvic inflammato ry disease. Patient is aware she is at higher risk for STD and if contracted she could lose her fertility. Pt is aware that if occurs that she should contact office immediatel y to rule out ectopic which could be life threatenin g. IUD will also need to be removed and this could cause miscarriag e. Patient also informed that in the event her strings are absent or embedded at the time of removal she may need to have the IUD surgically removed. She was informed of the above and properly consented. IUD placed w/o complicati on. Patient should return to office after next period to check for string placement. Patient to expect irregular bleeding but should be seen in the ED if bleeding increases to soaking a pad an hour for at least 2 hours. She verbalized understand ing.Stop OCP & use condoms for at least 2wks to prevent with this switch in control.RT O x 6-8wks string check or sooner if issues. Screening procedure 2012 5006 Z13.9 Contracept ion care management 031853595 Z30.9 Discussed all control options and pt would like Kyleena IUD. I have discussed in detail all risks and benefits including risk of infection and perforatio n. She understand s she will need to contact office with next menses or may abstain, complete serum HCG day before placement, if neg can have IUD placed next day. Aware of need to verify with insurance device coverage. Literature given. All questions answered to patient satisfacti on. Time spent in visit is a total of 45 mins with at least 50% of visit consisting of counseling and review of plan of care including time spent on procedure. [id number] ANTOINETTE Roberto [facility] [address] [address] 01/11/2024 11:57:47 01/11/2024 13:56:14 Pain in pelvis 04214551 R10.2 This patient is a 28 -year-old female with pelvic pain. We have agreed to complete the evaluation with pelvic ultrasound . The patient will return after the pelvic ultrasound to discuss those findings and to develop a treatment plan. A comprehens candy history and physical exam was performed today. We spent over 25 minutes face-to-fa ce. The patient was given precaution s. She will contact clinic if pelvic pain increases in frequency or intensity. Also notify clinic of any new symptoms associated with pelvic pain. She does not appear to have an acute pelvic infection today, but was asked to contact us Immediatel y with nausea, vomiting, fever, chills. Vaginitis 42784506 N76.0 exam today wnlnormal appearing IUD stringsgc/ ct/trich testing sentvagini tis panel senturine cx sentrx sent for BV - r/b/a reviewedpe lvic u/s orderedpre cautions reviewed Time spent in visit is a total of 30 mins with at least 50% of visit consisting of counseling and review of plan of care. Venereal d isease screening 989902612 Z11.3 [id number] Mert Smith MD [facility] [address] [address] 01/18/2024 10:54:54 01/18/2024 11:38:42 Pain in pelvis 76323522 R10.2 [id number] ANTOINETTE Roberto [facility] [address],[place] [address] 01/23/2024 11:18:03 01/23/2024 11:42:45 Pain in pelvis 53539586 R10.2 Reviewed updated pelvic u/s - wnlshe is currently asymptomat icquestion s answeredde sires to continue with kyleena IUDRTC for WWE or sooner if needed Time spent in visit is a total of 20 mins with at least 50% of visit consisting of counseling and review of plan of care. [id number] Ashley Sierra [facility] [address],[place] [address] 04/04/2024 10:47:32 04/04/2024 12:11:59 Vaginitis 72899565 N76.0 vaginitis panel sentgc/ct/ trich testing sentHIV/He p B&C/Syphil is testing ordered per pt requestsaf e sexual practices discussedr x sent for BV - r/b/a reviewedvu lvar care guidelines discussedd iscussed HSV, opts to continue on daily valtrex, refill sent, r/b/a reviewedqu estions answered Time spent in visit is a total of 25 mins with at least 50% of visit consisting of counseling and review of plan of care. Venereal d isease screening 116701467 Z11.3 Sexually t ransmitted infectious disease 1323964 A64 Genital he rpes simplex 81770169 A60.9 [id number] Mert Smith MD [facility] [address],[place] [address] 05/15/2024 16:16:32 05/16/2024 10:52:21 Vulvovaginitis 35224689 N76.0 Contracept ion care management 884370936 Z30.9 IUD was removed without complicati ons. She tolerated it well. Patient reports severe vulvar irritation and white discharge. Patient has had recurrent vaginitis /vulvovagi nitis. She is taking a 1 month course of antibiotic s. We agreed to long-term treatment for yeast vulvovagin itis. She will take 1 Diflucan every week. She will do this for several months I gave her precaution s and instructio ns on the medication . We discussed risks, benefits, and alternativ es to the medication . I spent over 30 minutes on her care. We discussed recurrent vulvovagin itis, contracept ion, IUD. We discussed treatment, screening, etiology, natural history, treatment of sexually transmitte d disease. Sexually t ransmitted infectious disease 6797257 A64 [id number] Mert Smith MD [facility] [address],[place] [address] 07/09/2024 12:17:58 07/09/2024 12:39:27 Vaginal odor 919234529 N89.8 [id number] Ashley Sierra [facility] [address],[place] [address] 10/10/2024 10:59:52 10/10/2024 14:23:22 Vaginitis 51107871 N76.0 vaginitis/ STI panel sentrx sent for BV - r/b/a reviewedvu lvar care guidelines discusseds afe sexual practices discussed Time spent in visit is a total of 20 mins with at least 50% of visit consisting of counseling and review of plan of care. Venereal d isease screening 994087578 Z11.3 Sexually t ransmitted infectious disease 7644350 A64 [id number] Ashley Sierra [facility] [address],[place] [address] 10/17/2024 10:07:45 10/17/2024 11:35:52 Venereal disease screening 831948696 Z11.3 Postcoital bleeding 4888 0000 N93.0 gc/ct/tric h testing sentsafe sexual practices discussedv ulvar care guidelines discussedw ill update pelvic u/s for postcoital bleedingRT C for u/s f/u Time spent in visit is a total of 25 mins with at least 50% of visit consisting of counseling and review of plan of care. Contracept ion care management 135445208 Z30.9 [id number] Mert Smith MD [facility] [address],[place] [address] 10/24/2024 10:39:14 10/24/2024 11:26:06 Abnormal uterine bleeding 3826957289 9100 N93.9 N93.0 [id number] Mert Smith MD [facility] [address] [address] 10/28/2024 12:10:58 10/28/2024 13:02:07 Abnormal uterine bleeding 9023718559 9100 N93.9 N93.0 this patient is a 29-year-ol d female with abnormal uterine bleeding. We discussed solutions for abnormal uterine bleeding. We reviewed her ultrasound . Her ultrasound is essentiall y normal with a paratubal cyst. We talked about ablation. Talked about hysterecto my. Talked about hormonal contracept ion. She is taking a low dose pill. A 10 mcg pill. We agreed to change her to a 20 mcg pill and observe. We spent over 20 minutes on her care in total. Health Concerns Section Related Observation LastModified by Organization Detai ls LastModified Time None Recorded Concern Status LastModified by Organization Details LastModified Time None Recorded Advance Directives Directive N: Payers Insurance Date Sequence Insurance Name Policy Number Policy Wagoner Covered Member ID Wagoner Member ID Guarantor Name 10/28/2024 1 [facility] (MEDICAID HMO) [id number] Lashae Meza [id number] Callum Meza Notes Date Note Type Note Provider Name and Address Organization Details Recorded Time 07/09/2024 text/html Vaginal/Vulvar ProblemReported by Patient Reanna Trudy busch, [facility] 07/09/2024 12:29:00 10/10/2024 text/html Vaginal/Vulvar ProblemReported by Patient 29yovaginal odor/dischargefishy odorclear/white dischargewould like STI testing today ANTOINETTE Roberto [address], [place], [address], [facility] 10/10/2024 13:48:17 10/17/2024 text/html Vaginal/Vulvar ProblemReported by Patient 29yohere today for STI testingwas seen in office 10/10/24 for vaginitis symptoms. Sample collected at that visit could not process d/t lab error. She was treated for BV at that visit, symptoms have resolved.Denies itching/discharge/od orsHas been experiencing postcoital bleeding for 3 yrsOn OCP for BC neg pelvic painneg n/v/fneg flu-like symptoms ANTOINETTE Roberto [address], [place], [address], [facility] 10/17/2024 11:32:19 10/28/2024 text/html this patient is a 29-year-old female with abnormal uterine bleeding. We discussed solutions for abnormal uterine bleeding. We reviewed her ultrasound. Her ultrasound is essentially normal with a paratubal cyst. We talked about ablation. Talked about hysterectomy. Talked about hormonal contraception. She is taking a low dose pill. A 10 mcg pill. We agreed to change her to a 20 mcg pill and observe. We spent over 20 minutes on her care in total. Mert Smith MD [address], [place], [address], [facility] 10/28/2024 13:00:44 OBGyn Episode Ob Episode Information Episode Created Date Number of Fetuses Patient Bloodtype Patient rh Status Prepregnancy Weight lbs Domestic Partner Domestic Partner Phone Father Name Industrial Economics Teacher Status 11/24/19 21 1 CLOSED Fetus Data First Name Last Name Admitted to NICU Weight (g) Sex Living Outcome Pediatric Complications Fetus ID Race Codes Race Delivery Type 3345.24 1 [id number] Vaginal Delivery Jeremy Calculation Initial Jeremy Date Initial Exam Date Initial Exam Provider Initial Ultrasound Date Last Menstrual Period Date Ultra Sound Weeks Gestation 0 Eighteen To Twenty Week Jeremy Update Ultra Sound Date Fundal Height At Umbil Quickening Date Ultra Sound Latest Weeks Gestation Final Jeremy Confirmed By Final Jeremy Confirmed Date Final Jeremy Date Ultra Sound Latest Days Gestation 0 0 Menstrual History Last Menstrual Date Menses Monthly On Bcp Conception Prior Menses Frequency Hcg Plus Date Menarche Onset Age Delivery Information Delivery Date Delivery Type Labor Anesthesia Weeks Gestation Incision Type Labor Labor Length Hrs Delivered By Post Complications Tubal Sterilization Discharge Date Comments 1 39 GBS positive Discharge Information Feeding Method Contraceptive Method Maternal HG B and HCT Levels Ob Episode Information Episode Created Date Number of Fetuses Patient Bloodtype Patient rh Status Prepregnancy Weight lbs Domestic Partner Domestic Partner Phone Father Name Industrial Economics Teacher Status 11/24/19 21 1 CLOSED Fetus Data First Name Last Name Admitted to NICU Weight (g) Sex Living Outcome Pediatric Complications Fetus ID Race Codes Race Delivery Type 3572.03 7 M [id number] Vaginal Delivery Jeremy Calculation Initial Jeremy Date Initial Exam Date Initial Exam Provider Initial Ultrasound Date Last Menstrual Period Date Ultra Sound Weeks Gestation 0 Eighteen To Twenty Week Jeremy Update Ultra Sound Date Fundal Height At Umbil Quickening Date Ultra Sound Latest Weeks Gestation Final Jeremy Confirmed By Final Jeremy Confirmed Date Final Jeremy Date Ultra Sound Latest Days Gestation 0 0 Menstrual History Last Menstrual Date Menses Monthly On Bcp Conception Prior Menses Frequency Hcg Plus Date Menarche Onset Age Delivery Information Delivery Date Delivery Type Labor Anesthesia Weeks Gestation Incision Type Labor Labor Length Hrs Delivered By Post Complications Tubal Sterilization Discharge Date Comments 8 39 GDM Discharge Information Feeding Method Contraceptive Method Maternal HG B and HCT Levels Ob Episode Information Episode Created Date Number of Fetuses Patient Bloodtype Patient rh Status Prepregnancy Weight lbs Domestic Partner Domestic Partner Phone Father Name Industrial Economics Teacher Status 11/24/19 21 1 CLOSED Fetus Data First Name Last Name Admitted to NICU Weight (g) Sex Living Outcome Pediatric Complications Fetus ID Race Codes Race Delivery Type 3543.46 [id number] Vaginal Delivery Jeremy Calculation Initial Jeremy Date Initial Exam Date Initial Exam Provider Initial Ultrasound Date Last Menstrual Period Date Ultra Sound Weeks Gestation 0 Eighteen To Twenty Week Jeremy Update Ultra Sound Date Fundal Height At Umbil Quickening Date Ultra Sound Latest Weeks Gestation Final Jeremy Confirmed By Final Jeremy Confirmed Date Final Jeremy Date Ultra Sound Latest Days Gestation 0 0 Menstrual History Last Menstrual Date Menses Monthly On Bcp Conception Prior Menses Frequency Hcg Plus Date Menarche Onset Age Delivery Information Delivery Date Delivery Type Labor Anesthesia Weeks Gestation Incision Type Labor Labor Length Hrs Delivered By Post Complications Tubal Sterilization Discharge Date Comments 6 28.5 Discharge Information Feeding Method Contraceptive Method Maternal HG B and HCT Levels
--- OUTSIDE RECORDS SUMMARY | 2025-07-07 13:07 | XMS_ITS | Clinical Summary ---
Author Organization [facility] Address [address] [place] [address] Phone Care Team Providers Care Regional Facilities Specialist Name Role Phone Provider, Unknown Primary Care Provider Unavaila Fredi Alexander APRN, AUTOMATIC PINSETTER ADJUSTER Unavailable Allergies No known active allergies Medications solifenacin (VESICARE) 10 MG TabletIndication s:Urinary frequency,OAB (overactive bladder) Take 1 Tablet by mouth daily. 30 Tablet 1 10/23/2023 Active Phentermine HCl 37.5 MG Tablet Take 1 Tablet by mouth daily. 10/08/2023 Active oxybutynin (DITROPAN-XL) 5 MG TABLET SR 24 HR Take 1 Tablet by mouth daily. 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 TEACHER Gender Identity Not on file Sexual Orientation Not on file Last Filed Vital Signs Vital Sign Reading Time Taken Comments Blood Pressure 120/74 10/23/2023 3:13 PM LIFE MANAGEMENT TEACHER Pulse 60 10/23/2023 3:13 PM LIFE MANAGEMENT TEACHER Temperature 36.7 C (98 F) 10/23/2023 3:13 PM LIFE MANAGEMENT TEACHER Respiratory Rate 19 10/23/2023 3:13 PM LIFE MANAGEMENT TEACHER Oxygen Saturation - - Inhaled Oxygen Concentration - - Weight - - Height 154.9 cm (5' 1) 10/23/2023 3:13 PM LIFE MANAGEMENT TEACHER Body Mass Index - - Plan of Treatment Health Maintenance Due Date Last Done Comments Hepatitis C Virus (HCV) Screening 1993 Pap Smear 2014 Cervical Cancer Screening (CCS) 2023 HPV/Cotest 2023 Influenza Immunization (#1) 05/12/202507/13, 07/19/2016, 09/07/2005 SARS-COV-2 Immunization ( season) 2025 08/09/2022, 08/11/2021, 12/10/2020, Additional history exists Respiratory Syncytial Virus (RSV) Immunization (Adult) (1 - 1-dose 75+ series) 02/27/2068 Hepatitis B Immunization Completed 994, 1993, 1993 Pneumococcal Immunization Combined Aged Out 09/26/2000, 09/22/2000 No longer eligibl e based on patient's age to complete this topic Meningococcal Immunization (ACWY) Aged Out 01/31/2007 No longer eligible based on patient's age to complete this topic Human Papillomavirus (HPV) Immunization Completed 11/06/2013, 09/18/2012, 08/14/2012, Additional history exists DTaP/Tdap/Td Immunization Discontinued 2017, 08/03/2016, 01/31/2007, Additional history exists TdaP Immunization Completed 03/30/2018, , 01/31/2007 Rotavirus Immunization Aged Out No lo nger eligible based on patient's age to complete this topic Insurance [place]ICAID [place] Care Teams Regional Facilities Specialist Relationship Specialty Start Date End Date Provider, Unknown UNKNOWN PCP - General 08/23/16 Fredi Carrillo, STRIP ROLLER, AUTOMATIC PINSETTER ADJUSTER [address] [place] [address] Nurse Practitioner Advanced Practice Nurse 11/02/23
== END 2025-07-07 12:38 | disposition home or self-care (01) ==
PROVIDERS: Emergency Provider Nurse Practitioner
DX: J32.9 Chronic sinusitis, unspecified (principal); H66.91 Otitis media, unspecified, right ear; F17.210 Nicotine dependence, cigarettes, uncomplicated
CPT/HCPCS: 71046; 99213; A9270; G0463

== ENCOUNTER 2025-08-10 12:47 | Emergency (ER) | payer OTHER, SELFPAY ==
--- OUTSIDE RECORDS SUMMARY | 2025-08-10 12:49 | XMS_ITS | Continuity of Care Document ---
Author Organization [facility] Address [address] [place] [address] Assessment Encounter Date Assessment Date Assessment LastModified by Organization Details LastModified Time 07/18/2025 07/18/2025 Annual gynecological exam performed. Patient will come back in a year unless there are new symptoms. [email or web address] Not available 07/18/2025 12:47:20 Plan of Treatment Reminders Order Date Submit Date Provider Last Modified By Organization Details Last Modified Time Details Appointments U/S F/U 2024 10:15A Jocelin SMITH MD Not available Not available Not available Lab pap, IG + HR HPV - HPV regardles s but if HPV is positive need subtyping 16,18/[address]/tri ch 2024 025 [facility] (Lab), [address], [place], [address], 07/23/2025 18:20:26 CBC w/ auto diff 2024 025 [facility] (Lab), [address], [place], [address], 07/23/2025 18:20:24 CMP, serum or plasma 2024 025 [facility] (Lab), [address], [place], [address], 07/23/2025 18:20:25 lipid panel, blood 2024 025 [facility] (Lab), [address] [facility] [facility], [place], [address], 07/23/2025 18:20:25 TSH, serum or plasma 2024 025 [facility] (Lab), [address], [place], [address], 07/23/2025 18:20:26 25-hydrox yvitamin D2 + 25-hydrox yvitamin D3, QN, serum or plasma 2024 025 [facility] (Lab), [address], [place], [address], 07/23/2025 18:20:26 Referral None recorded. Procedures None recorded. Surgeries None recorded. Imaging None recorded. Medication Orders valacyclo vir 500 mg tablet [address] [place] [address] [facility], [address] [place] [address], [address], 07/18/2025 13:09:27 Loestrin 1/20 (21) 1 mg-20 mcg tablet [address] [place] [address] Pharmacy 361, [facility] [place], [address], 07/18/2025 13:09:27 Patient TargetsNo targets recorded. Patient InstructionsNo instructions recorded. Reason for Referral None Reported. Results Created Date Observation Date Name Description Value Unit Range Abnormal Flag Note LastModifiedBy Organization Detail LastModifiedTime 07/18/2007/18/2025 CBC W/DIF F WBC 8.6 10'3/ uL 3.5-10 .5 Not Available [facility] (Lab) [address], [place], [address], 07/23/2025 18:20:24 07/18/20 25 07/18/2025 CBC W/DIF F RBC 4.13 10'6/ uL (based on docume nted legal sex) 3.80-5 .20 Not Available [facility] (Lab) [address] [place] [facility] [place], [address], 07/23/2025 18:20:24 07/18/20 25 07/18/2025 CBC W/DIF F HGB 12.1 g/dL (based on docume nted legal sex) 11.6-1 5.4 Not Available [facility] (Lab) [address], [place], [address], 07/23/2025 18:20:24 07/18/20 25 07/18/2025 CBC W/DIF F HCT 38.4 % (based on docume nted legal sex) 34.0-4 5.0 Not Available [facility] (Lab) [address], [place], [address], 07/23/2025 18:20:24 07/18/20 25 07/18/2025 CBC W/DIF F MCV 93.0 fL 80.0-9 9.0 Not Available [facility] (Lab) [address], [place], [address], 07/23/2025 18:20:24 07/18/20 25 07/18/2025 CBC W/DIF F MCH 29.3 pg 27.0-3 4.0 Not Available [facility] (Lab) [address], [place], [address], 07/23/2025 18:20:24 07/18/20 25 07/18/2025 CBC W/DIF F MCHC 31.5 g/dL 32.0-3 5.5 low Not Available [facility] (Lab) [address], [place], [address], 07/23/2025 18:20:24 07/18/20 25 07/18/2025 CBC W/DIF F RDW 13.7 % 11.0-1 5.0 Not Available [facility] (Lab) [address], [place], [address], 07/23/2025 18:20:24 07/18/20 25 07/18/2025 CBC W/DIF F plt 360 10'3/ uL 150-40 0 Not Available [facility] (Lab) [address], [place], [address], 07/23/2025 18:20:24 07/18/20 25 07/18/2025 CBC W/DIF F MPV 10.4 fL 8.8-12 .1 Not Available [facility] (Lab) [address], [place], [address], 07/23/2025 18:20:24 07/18/20 25 07/18/2025 CBC W/DIF F NRBC's 0.0 % 0.0 Not Available [facility] (Lab) [address], [place], [address], 07/23/2025 18:20:24 07/18/20 25 07/18/2025 CBC W/DIF F absolute NRBCs 0.0 10'3/ uL no refere nce range establ ished Not Available [facility] (Lab) [address], [place], [address], 07/23/2025 18:20:24 07/18/20 25 07/18/2025 CBC W/DIF F neutrophils 61.8 % 34.0-7 3.0 Not Available [facility] (Lab) [address], [place], [address], 07/23/2025 18:20:24 07/18/20 25 07/18/2025 CBC W/DIF F lymphocytes 31.7 % 15.0-5 0.0 Not Available [facility] (Lab) [address], [place], [address], 07/23/2025 18:20:24 07/18/20 25 07/18/2025 CBC W/DIF F monocytes 5.2 % 1.0-15 .0 Not Available [facility] (Lab) [address], [place], [address], 07/23/2025 18:20:24 07/18/20 25 07/18/2025 CBC W/DIF F eosinophils 0.8 % 0.0-8. 0 Not Available [facility] (Lab) [address], [place], [address], 07/23/2025 18:20:24 07/18/20 25 07/18/2025 CBC W/DIF F basophils 0.2 % 0.0-2. 0 Not Available [facility] (Lab) [address], [place], [address], 07/23/2025 18:20:24 07/18/20 25 07/18/2025 CBC W/DIF F immature granulocytes 0.3 % no define d refere nce range Immat ure Granu locyt es (IG) repre sents autom ated enume ratio n of Metam yeloc ytes, Myelo cytes and Promy elocy tracy when IG is < 5%. Blast s are not inclu ded in IG and repor edd separ ately if prese nt. Not Available [facility] (Lab) [address], [place], [address], 07/23/2025 18:20:24 07/18/20 25 07/18/2025 CBC W/DIF F absolute neutrophils 5.3 10'3/ uL 1.5-8. 0 Not Available [facility] (Lab) [address], [place], [address], 07/23/2025 18:20:24 07/18/20 25 07/18/2025 CBC W/DIF F absolute lymphocytes 2.7 10'3/ uL 1.0-4. 0 Not Available [facility] (Lab) [address], [place], [address], 07/23/2025 18:20:24 07/18/20 25 07/18/2025 CBC W/DIF F absolute monocytes 0.5 10'3/ uL 0.2-1. 0 Not Available [facility] (Lab) [address], [place], [address], 07/23/2025 18:20:24 07/18/20 25 07/18/2025 CBC W/DIF F absolute eosinophils 0.1 10'3/ uL 0.0-0. 6 Not Available [facility] (Lab) [address], [place], [address], 07/23/2025 18:20:24 07/18/20 25 07/18/2025 CBC W/DIF F absolute basophils 0.0 10'3/ uL 0.0-0. 3 Not Available [facility] (Lab) [address], [place], [address], 07/23/2025 18:20:24 07/18/20 25 07/18/2025 CBC W/DIF F absolute immature granulocytes 0.0 10'3/ uL 0.00-0 .10 Refer ence range s for nonbi nary/ inter sex or unspe cifie d gende r patie nts have not been estab lishe d. Pleas e refer to the follo wing table for range s estab lishe d for cisge nder patie nts and evalu ate in the clini simon warner xt of the indiv idual patie nt: https ://kate nicholson book. nm.or g/gen derx Not Available [facility] (Lab) [address], [place], [address], 07/23/2025 18:20:24 07/18/20 25 07/18/2025 CMP(C OMPRE HENSI VE METAB OLIC PANEL ) sodium 139 mmol/ L 133-14 6 Not Available [facility] (Lab) [address], [place], [address], 07/23/2025 18:20:24 07/18/20 25 07/18/2025 CMP(C OMPRE HENSI VE METAB OLIC PANEL ) potassium 4.2 mmol/ L 3.5-5. 1 Not Available [facility] (Lab) [address], [place], [address], 07/23/2025 18:20:24 07/18/20 25 07/18/2025 CMP(C OMPRE HENSI VE METAB OLIC PANEL ) chloride 104 mmol/ L 98-107 Not Available [facility] (Lab) [address], [place], [address], 07/23/2025 18:20:24 07/18/20 25 07/18/2025 CMP(C OMPRE HENSI VE METAB OLIC PANEL ) carbon dioxide 30 mmol/ L 21-31 Not Available [facility] (Lab) [address], [place], [address], 07/23/2025 18:20:24 07/18/20 25 07/18/2025 CMP(C OMPRE HENSI VE METAB OLIC PANEL ) anion gap 5 mmol/ L 4-13 Not Available [facility] (Lab) [address], [place], [address], 07/23/2025 18:20:24 07/18/20 25 07/18/2025 CMP(C OMPRE HENSI VE METAB OLIC PANEL ) blood urea nitrogen 16 mg/dL 7-25 Not Available [facility] (Lab) [address], [place], [address], 07/23/2025 18:20:24 07/18/20 25 07/18/2025 CMP(C OMPRE HENSI VE METAB OLIC PANEL ) creatinine 0.81 mg/dL 0.60-1 .30 Not Available [facility] (Lab) [address], [place], [address], 07/23/2025 18:20:24 07/18/20 25 07/18/2025 CMP(C OMPRE HENSI VE METAB OLIC PANEL ) egfrcr (CKD-epi 2020) >90 mL/mi n/1.7 3_m2 >=60 Not Available [facility] (Lab) [address], [place], [address], 07/23/2025 18:20:24 07/18/20 25 07/18/2025 CMP(C OMPRE HENSI VE METAB OLIC PANEL ) calcium 9.7 mg/dL 8.3-10 .5 Not Available [facility] (Lab) [address], [place], [address], 07/23/2025 18:20:24 07/18/20 25 07/18/2025 CMP(C OMPRE HENSI VE METAB OLIC PANEL ) glucose 70 mg/dL 70-100 Not Available [facility] (Lab) [address], [place], [address], 07/23/2025 18:20:24 07/18/20 25 07/18/2025 CMP(C OMPRE HENSI VE METAB OLIC PANEL ) protein, total 7.0 g/dL 6.4-8. 3 Not Available [facility] (Lab) [address], [place], [address], 07/23/2025 18:20:24 07/18/20 25 07/18/2025 CMP(C OMPRE HENSI VE METAB OLIC PANEL ) albumin 4.4 g/dL 3.5-5. 0 Not Available [facility] (Lab) [address], [place], [address], 07/23/2025 18:20:24 07/18/20 25 07/18/2025 CMP(C OMPRE HENSI VE METAB OLIC PANEL ) ALT 13 units /L 9-43 Not Available [facility] (Lab) [address], [place], [address], 07/23/2025 18:20:24 07/18/20 25 07/18/2025 CMP(C OMPRE HENSI VE METAB OLIC PANEL ) alkaline phosphatase 61 units /L 34-104 Not Available [facility] (Lab) [address] [place], [address], 07/23/2025 18:20:24 07/18/20 25 07/18/2025 CMP(C OMPRE HENSI VE METAB OLIC PANEL ) AST 14 units /L 13-39 Not Available [facility] (Lab) [address] [place], [address], 07/23/2025 18:20:24 07/18/20 25 07/18/2025 CMP(C OMPRE HENSI VE METAB OLIC PANEL ) bilirubin, total 0.6 mg/dL 0.2-1. 2 Not Available [facility] (Lab) [address] [place], [address], 07/23/2025 18:20:24 07/18/20 25 07/18/2025 LIPID PANEL ,AMA (LDL- CALC) total cholesterol 201 mg/dL 0-199 high Not Available [facility] (Lab) [address] [place], [address], 07/23/2025 18:20:25 07/18/20 25 07/18/2025 LIPID PANEL ,AMA (LDL- CALC) triglyceride s 194 mg/dL 0-150 high NCEP Refer ence Value s for Trigl yceri andrae: Mary l: <150 mg/dL Borde rline High: 150 - 199 mg/dL High: 200 - 499 mg/dL Very High: >/= 500 mg/dL Not Available [facility] (Lab) [address] [place], [address], 07/23/2025 18:20:25 07/18/20 25 07/18/2025 LIPID PANEL ,AMA (LDL- CALC) HDL cholesterol 54 mg/dL >40 Not Available [facility] (Lab) [address] [place], [address], 07/23/2025 18:20:25 07/18/20 25 07/18/2025 LIPID PANEL ,AMA (LDL- CALC) LDL cholesterol 116 mg/dL 0-99 high Cutof f value s recom nguyen d by the Natio nal Lucy stero l Educa tion Progr am: JEANNE ABLE: Lucy stero l <200 mg/dL LDL <100 mg/dL BORDE RLINE : Lucy stero l 200-2 39 mg/dL LDL 101-1 59 mg/dL HIGHE R RISK: Lucy stero l >240 mg/dL LDL >160 mg/dL , HDL <40 mg/dL Not Available [facility] (Lab) [address], [place], [address], 07/23/2025 18:20:25 07/18/2007/18/2025 LIPID PANEL ,AMA (LDL- CALC) non-HDL cholesterol 147 mg/dL no refere nce range A reaso nable goal for non-H DL lucy stero l is one that is 30 mg/dL highe r than the LDL lucy stero l goal. Not Available [facility] (Lab) [address], [place], [address], 07/23/2025 18:20:25 07/18/20 25 07/18/2025 LIPID PANEL ,AMA (LDL- CALC) chol/HDL ratio 3.7 . 0.0-5. 0 On January 03, 2023, [facility] labor atori es joaquin ed the equat ion for calcu latin g estim ated low-d ensit y lipop rotei n-cho leste rol (LDL- C) from the Fried harshil equat ion to the Elham jennifer/Elia mckeon equat ion. This new equat ion is only valid for lipid panel s with trigl yceri andrae < 400 mg/dL . Studi es susan demon strat ed that this new equat ion will impro ve the accur acy of LDL-C , espec ially in [place] when LDL-C yolande ntrat ions are relat ively low (< 100 mg/dL ), trigl yceri andrae are eleva edd, or patie nt is non-f astin g. Refer ences : - Bernardo Gaming, Jayy Coon , Rox fleming, Shoaib Delaney, Shoaib mcclain, [facility]is [facility] , and Chris Brito . 2013. Comp ariso n of a Novel Metho d vs the Fried harshil Equat ion for Estim ating Low-D ensit y Lipop rotei n Lucy stero l Level s from the Stand gracie Lipid Jah antoine. LOGAN: The Journ al of the Ameri can Medic al Assoc iatio n 310 (19): 2060- . - Janki hi V, Bhargavi J, Tila hi A, Leidy M, Francesca e R, Hasmukh hi E, Maxi berrios RS, Daryl SR, Elham n SS. Fast ing Versu s Nonfa sting and Low-D ensit y Lipop rotei n Lucy stero l Accur acy. Circu latio n. 2017Sep 12;137 (1):1 0-19. Not Available [facility] (Lab) [address] [place], [address], 07/23/2025 18:20:25 07/18/20 25 07/18/2025 TSH, REFLE X FREE T4 TSH 0.98 uIU/m L 0.30-5 .33 Not Available [facility] (Lab) [address] [place], [address], 07/23/2025 18:20:25 07/18/20 25 07/18/2025 VITAM IN D, 25-OH (TOTA L D2/D3 ) vitamin D, 25-hydroxy, total 20.1 NG/mL 30.0-1 00.0 low Sugge stive of Defic iency : <20 ng/mL Sugge stive of Insuf ficie ncy: 20-29 ng/mL Sugge stive of Suffi cienc y: 30-10 0 ng/mL Sugge stive of Toxic ity: >150 ng/mL Not Available [facility] (Lab) [address] [place], [address], 07/23/2025 18:20:26 07/18/20 25 07/18/2025 IMAGE GUIDE D PAP AND HPV REGAR DLESS image guided Pap, HPV regardless of Pap result SEE RESULT S BELOW CASE REPOR T: Cytol ogy Gynec ologi simon Repor t Case: [id number] Autho gagandeep g Provi arlin: David Smith MD Colle cted: 07/18 1305 Order ing Locat ion: [place] Patho timo Haider skylar: 07/19 0344 First Sergeicarolina n: Sandie Molina, CT Speci men: Juan C tian Pap - Image d, Cervi x STATE MENT OF ADEQU ACY: Satis facto ry for evalu ation Trans forma tion zone compo nent prese nt ----- ----- ----- ----- ----- ----- ----- ----- ----- ----- ----- ----- ----- ----- ----- ----- ----- ---- FINAL DIAGN OSIS: Negat candy for Intra epith elial Alexey rodriguez or Maya jeter (NIL) . Elect rasheeda pelayo by Sandie Molina, CT on 07/23 at 1715 MARRIAGE COUNSELOR ----- ----- ----- ----- ----- ----- ----- ----- ----- ----- ----- ----- ----- ----- ----- ----- ----- ---- HPV RESUL TS: HPV mRNA E6/E7 : No HPV mRNA Detec edd NOTE: This high risk HPV mRNA assay detec ts fourt een high- risk HPV types (16, 18, 31, 33, 35, 39, 45, 51, 52, 56, 58, 59, 66, 68) witho ut diffe renti ation . COMME NT: This speci men was revie wed by a Cytot echno logis t and/o r Patho logis t (as indic ated in this repor t) after evalu ation using the Thinp rep Imagi ng Syste m. CLINI SIMON INFOR MATIO N: Menst rual Statu s: LMP (if appli cable ): 2024 Clini simon Histo ry/Pr eviou s Pap: Type of Neopl arelis (if appli cable ): Signi fican t Clini simon Findi ngs: Other Histo ry: Hormo sheba (if appli cable ): PAP EDUCA JOEL L NOTE: The Pap Test is a scree jaylan test with an inher ent false negat candy rate. Liqui d-bas ed sampl ing may decre ase, but will not elimi gabriella, false negat candy resul ts. A negat candy resul t does not precl ude the prese nce and/o r devel opmen t of disea se, since the prese nce of abnor mal cells in the sampl e depen ds on the locat ion of the lesio n and sampl ing techn ique. Mele nued regul ar scree jaylan is the best metho d of cance r preve ntion . If repor edd cytol ogic findi ng do not corre late with physi simon and/o r histo rical findi ngs, furth er inves tigat ion is recom nugyen d, as clini ruddy warra nted. Not Available [facility] (Lab) [address], [place], [address], 07/23/2025 18:20:26 07/29/20 25 07/29/2025 US, trans vagin al No observ ation record ed. [email or web address] [place], [place], [address], 07/29/2025 18:25:33 07/29/20 25 07/29/2025 US, trans vagin al No observ ation record ed. [email or web address] [address], [place], [address], 07/30/2025 22:54:00 Result Notes None recorded. Problems Name Problem SNOMED Code Status Onset Date Resolution Date Notes Provider Name and Address Organization Details Recorded Time Primigra john 876160032 Completed 201011/03/2020 Supervis ion of normal first pregnanc y;Practi ce ID: 0001 Rizwana Diallo null, [facility] 17:26:55 anatomy study Completed 201011/03/2020 [facility];P kianatice ID: 0001 Rizwana busch [facility] 17:25:51 Glucose toleranc e test during pregnanc y - baby not yet delivere d outside referenc e range [id number] Completed 201011/03/2020 Gestatat ional Diabetes Antepart um;Pract ice ID: 0001 [facility]:18:54 Maternal care for diminish ed movement s Completed 201011/03/2020 Decrease d movement s, affectin g manageme nt of mother, antepart um conditio n or complica tion;Pra ctice ID: 0001 Rizwana Diallo [facility] 17:26:40 Delivery normal [id number] Completed 201011/03/2020 Normal delivery ;Practic e ID: 0001 Rizwana Diallo [facility] 17:25:38 Single live from singleto n pregnanc y [id number] Completed 201011/03/2020 Mother with single liveborn ;Practic e ID: 0001 Rizwana Diallo [facility] 17:27:03 Postpart um care Completed 201011/03/2020 Routine postpart um follow-u p;Record ed Elsewher e: No Locat ion: John figueroa [facility] S ource: EHR Biology Lecturer chiquita: N Practi ce ID: [id number] Benson lable Time: 04:00:00 PM Rizwana busch [facility] 17:26:46 Insertio n of intraute rine contrace ptive device Completed 201011/03/2020 INSERTIO N OF IUD;Jm rded Elsewher e: No Locat ion: Debviagustin figueroa [facility] S ource: EHR Biology Lecturer chiquita: N Leoti ce ID: 0001 Benson lable Time: 10:30:00 AM Rizwana busch [facility] 17:26:32 Uses IUD (intraut erine device) contrace ption [id number] Completed 201111/03/2020 Surveill ance of intraute rine contrace ptive device;R ecorded Elsewher e: No [facility] Biology Lecturer chiquita: N Leoti ce ID: 0001 Benson lable Time: 04:00:00 PM Rizwana busch [facility] 17:26:34 Hernia of abdomina l cavity [id number] Completed 201111/03/2020 Hernia of other specifie d sites without mention of obstruct ion or gangrene ;Recorde d Elsewher e: No [facility] N Leoti ce ID: 0001 Benson lable Time: 08:30:00 AM Rizwana busch [facility] 17:26:24 Removal of intraute rine device Completed 201211/03/2020 REMOVAL OF IUD;Jm rded Elsewher e: No [facility] EHR Biology Lecturer chiquita: N Leoti ce ID: 0001 Benson lable Time: 08:30:00 AM Rizwana busch [facility] 17:26:58 Dysfunct ional uterine bleeding Completed 201211/03/2020 Other disorder s of menstrua tion and other abnormal bleeding from female genital tract;Re corded Elsewher e: No Locat ion: [facility] S ource: EHR Biology Lecturer chiquita: N Leoti ce ID: 0001 Benson lable Time: 08:30:00 AM Rizwana busch, [facility] 17:25:41 Female genital organ symptoms [id number] Completed 201211/03/2020 Unspecif ied symptom associat ed with female genital organs;R ecorded Elsewher e: No Locat ion: [facility] S ource: EHR Biology Lecturer chiquita: N Practi ce ID: 0001 Benson lable Time: 08:15:00 AM Rizwana busch, [facility] 17:25:49 Family planning surveill ance Completed 201311/03/2020 Surveill ance of other contrace ptive method;R ecorded Elsewher e: No Locat ion: [facility] S ource: EHR Biology Lecturer chiquita: N Practi ce ID: 0001 Benson lable Time: 10:00:00 AM Rizwana busch, [facility] 17:25:48 Educatio n Completed 201311/03/2020 Other general counseli ng and advice on contrace ptive manageme nt;Recor ded Elsewher e: No Locat ion: [facility] S ource: EHR Biology Lecturer chiquita: Y Practi ce ID: 0001 Benson lable Time: 10:00:00 AM Rizwana busch [facility] 17:25:46 Speciali zed medical examinat ion Completed 201411/03/2020 ROUTINE MASTER TECHNICIAN EXAMINAT ION;Jm rded Elsewher e: No Locat ion: [facility] S ource: EHR Biology Lecturer chiquita: N Practi ce ID: 0001 Benson lable Time: 08:45:00 AM Rizwana busch, [facility] 17:27:13 Obesity [id number] Completed 201411/03/2020 Obesity; Recorded Elsewher e: No Locat ion: [facility] Jennifer Loyd ce ID: 0001 Benson lable Time: 08:45:00 AM Rizwana busch, [facility] 17:26:43 Cytologi c finding Completed 201411/03/2020 Papanico laou smear of cervix with low grade squamous intraepi thelial lesion (LGSIL); Recorded Elsewher e: No Locat ion: [facility]: N Leoti ce ID: 0001 Benson lable Time: 11:00:00 AM Rizwana busch, [facility] 17:25:36 Finding of regulari ty of menstrua l cycle Completed 201411/03/2020 Irregula r bleeding ;Recorde d Elsewher e: No Locat ion: [facility]: N Rach ce ID: 0001 Benson lable Time: 10:45:00 AM Rizwana busch, [facility] 17:25:54 Low grade squamous intraepi thelial lesion on cervical Papanico laou smear [id number] Completed 201411/03/2020 LGSIL on pap smear of cervix;R ecorded Elsewher e: No Locat ion: [facility]: N Rach ce ID: 0001 Benson lable Time: 10:45:00 AM Rizwana bucsh, [facility] 17:26:39 Infectio n screenin g Completed 201511/03/2020 Encounte r for screenin g for oth infec/pa rastc diseases ;Recorde d Elsewher e: No Locat ion: [facility]: Jennifer Baileyti ce ID: 0001 Benson lable Time: 11:30:00 AM Rizwana busch, [facility] 17:26:31 Syphilis test finding [id number] Completed 201511/03/2020 Encntr screen for infectio ns w sexl mode of transmis s;Record ed Elsewher e: No Locat ion: Karime carolina [facility] S ource: [facility] Lecturer chiquita: N Leoti ce ID: [id number] Benson lable Time: 11:30:00 AM Rizwana busch, [facility] 17:27:15 Gestatio n less than 9 weeks [id number] Completed 201511/03/2020 Less than 8 weeks gestatio n of pregnanc y;Record ed Elsewher e: No Locat ion: [facility] S ource: [facility] Lecturer chiquita: N Leoti ce ID: [id number] Benson lable Time: 11:30:00 AM Rizwana busch, [facility] 17:25:55 Secondar y amenorrh ea [id number] Completed 201511/03/2020 Secondar y amenorrh ea;Recor ded Elsewher e: No Locat ion: [facility] S ource: [facility] Lecturer chiquita: N Leoti ce ID: [id number] Benson lable Time: 11:30:00 AM Rizwana busch, [facility] 17:27:02 Gestatio n period, 13 weeks [id number] Completed 201511/03/2020 13 weeks gestatio n of pregnanc y;Record ed Elsewher e: No Locat ion: [facility] S ource: [facility] Lecturer chiquita: N Leoti ce ID: [id number] Benson lable Time: 09:15:00 AM Rizwana busch, [facility] 17:25:57 Uterine size for dates discrepa ncy Completed 201511/03/2020 Uterine size-ruben e discrepa ncy, first ly r;Record ed Elsewher e: No Locat ion: John figueroa [facility] S ource: EHR Biology Lecturer chiquita: N Practi ce ID: 0001 Benson lable Time: 09:15:00 AM Rizwana busch, [facility] 17:27:19 Pregnanc y, childbir th and puerperi um finding Completed 201511/03/2020 Encounte r for supervis ion of normal 1st pregnanc y, 2nd trimeste r;Record ed Elsewher e: No [facility] EHR Biology Lecturer chiquita: N Practi ce ID: 0001 Benson lable Time: 09:30:00 AM Rizwana busch, [facility] 17:26:[address] Concept Completed 201511/03/2020 Decrease d movement s, second trimeste r, unsp;Rec orded Elsewher e: No Locat ion: Karime carolina [facility] S ource: EHR Biology Lecturer chiquita: N Leoti ce ID: 0001 Benson lable Time: 11:15:00 AM Rizwana busch, [facility] 17:27:06 Gestatio n period, 20 weeks [id number] Completed 201511/03/2020 20 weeks gestatio n of pregnanc y;Record ed Elsewher e: No Locat ion: John figueroa [facility] S ource: EHR Biology Lecturer chiquita: N Practi ce ID: 0001 Benson lable Time: 11:15:00 AM Rizwana busch, [facility] 17:26:[address] Concept Completed 201511/03/2020 Decrease d movement s, second trimeste r, fetus 1;Record ed Elsewher e: No [facility]: EHR Biology Lecturer chiquita: N Practi ce ID: 0001 Benson lable Time: 10:45:00 AM Rizwana Diallo null, [facility] 17:27:07 prematur e rupture of membrane s [id number] Completed 201511/03/2020 Pretrm edgardo ROM, unsp time betw rupt and onset labr, 2nd tri;Prac damaris ID: 0001 Rizwana busch, [facility] 17:26:54 Gestatio n period, 19 weeks [id number] Completed 201511/03/2020 19 weeks gestatio n of pregnanc y;Practi ce ID: 0001 Rizwana busch, [facility] 17:25:59 heart finding Completed 201511/03/2020 Abnlt in heart rate and rhythm comp labor and delivery ;Recorde d Elsewher e: No [facility]: EHR Biology Lecturer chiquita: N Practi ce ID: 0001 Benson lable Time: 08:59:24 AM Rizwana busch, [facility] 17:25:53 Gestatio n period, 36 weeks [id number] Completed 201511/03/2020 36 weeks gestatio n of pregnanc y;Record ed Elsewher e: No Locat ion: [facility] S ource: EHR Biology Lecturer chiquita: N Practi ce ID: 0001 Benson lable Time: 10:30:00 AM Rizwana busch, [facility] 17:26:17 Finding of trunk structur e Completed 201511/03/2020 Oth diseases and conditio ns compl preg/chl dbrth;Re corded Elsewher e: No [facility]: EHR Biology Lecturer chiquita: N Practi ce ID: 0001 Benson lable Time: 10:30:00 AM Rizwana busch, [facility] 17:27:18 Normal pregnanc y in multigra john [id number] Completed 201511/03/2020 Encounte r for suprvsn of normal pregnanc y, third trimeste r;Record ed Elsewher e: No Locat ion: John figueroa [facility] S ource: EHR Biology Lecturer chiquita: N Practi ce ID: 0001 Benson lable Time: 08:45:00 AM Rizwana Diallo jo-ann, [facility] 17:26:[address] Concept Completed 201511/03/2020 Decrease d movement s, third trimeste r, unsp;Rec orded Elsewher e: No Locat ion: John figueroa [facility] S ource: EHR Biology Lecturer chiquita: N Practi ce ID: 0001 Benson lable Time: 09:52:00 AM Rizwana busch, [facility] 17:27:09 Term pregnanc y delivere d [id number] Completed 201511/03/2020 Encounte r for full-ter m uncompli cated delivery ;Practic e ID: 0001 Rizwana Diallo jo-ann, [facility] 17:27:16 Gestatio n period, 39 weeks [id number] Completed 201511/03/2020 39 weeks gestatio n of pregnanc y;Practi ce ID: 0001 Rizwana Diallo jo-ann, [facility] 17:26:21 Lochia finding Completed 201611/03/2020 Encounte r for routine postpart um follow-u p;Record ed Elsewher e: No [facility] S ource: EHR Biology Lecturer chiquita: N Practi ce ID: 0001 Benson lable Time: 03:15:00 PM Rizwana Diallo jo-ann, [facility] 17:26:36 Puerpera l endometr itis [id number] Completed 201611/03/2020 Endometr itis postpart um;Recor ded Elsewher e: No [facility]at [facility] S ource: EHR Biology Lecturer chiquita: N Leoti ce ID: 0001 Benson lable Time: 03:15:00 PM Rizwana busch, [facility] 17:26:56 Low risk human papillom avirus deoxyrib onucleic acid detected in specimen from cervix [id number] Completed 201611/03/2020 Cervical low risk HPV DNA test positive ;Recorde d Elsewher e: No [facility]at [facility] S ource: EHR Biology Lecturer chiquita: N Leoti ce ID: 0001 Benson lable Time: 02:00:00 PM Rizwana busch, [facility] 17:26:28 Human papillom avirus deoxyrib onucleic acid detected , high risk on cervical specimen [id number] Completed 201611/03/2020 Cervical high risk HPV DNA test positive ;Recorde d Elsewher e: No [facility]at [facility] S ource: EHR Biology Lecturer chiquita: N Rach ce ID: 0001 Benson lable Time: 02:39:48 PM Rizwana busch, [facility] 17:26:26 Atypical squamous cells of undeterm ined signific ance on cervical Papanico laou smear [id number] Completed 201611/03/2020 Atyp squam cell of undet signfc cyto smr crvx (ASC-US) ;Recorde d Elsewher e: No Locat ion: [facility] S ource: EHR Biology Lecturer chiquita: N Leoti ce ID: 0001 Benson lable Time: 10:30:00 AM Rizwana busch, [facility] 17:25:27 Screenin g for malignan t neoplasm of cervix Completed 201611/03/2020 Screenin g for malignan t neoplasm s of the cervix;R ecorded Elsewher e: No Locat ion: John figueroa [facility] S ource: EHR Biology Lecturer chiquita: N Practi ce ID: 0001 Benson lable Time: 05:30:00 PM Rizwana busch [facility] 17:27:[address] Concept Completed 201611/03/2020 Anxiety disorder , unspecif ied;Jm rded Elsewher e: No [facility]at [facility]: [facility] S ource: EHR Biology Lecturer chiquita: N Practi ce ID: 0001 Benson lable Time: 05:30:00 PM Rizwana busch [facility] 17:27:05 Body mass index 30+ - obesity [id number] Completed 201611/03/2020 Body mass index (BMI) 32.0-32. 9, adult;Re corded Elsewher e: No [facility]at ion: [facility] S ource: EHR Biology Lecturer chiquita: N Practi ce ID: 0001 Benson lable Time: 05:30:00 PM Rizwana busch [facility] 17:25:29 Amenorrh ea [id number] Completed 201711/03/2020 Amenorrh ea;Recor ded Elsewher e: No Locat ion: [facility] S ource: EHR Biology Lecturer chiquita: N Practi ce ID: 0001 Benson lable Time: 05:00:00 PM Rizwana busch [facility] 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 17:27:12 Pregnanc y detectio n examinat ion Completed 201711/03/2020 Encounte r for pregnanc y test, result positive ;Recorde d Elsewher e: No [facility]at [facility] S ource: EHR Biology Lecturer chiquita: Jennifer Loyd ce ID: 0001 Benson lable Time: 05:00:00 PM Rizwana busch [facility] 17:26:49 Antenata l screenin g Completed 201711/03/2020 Encounte r for antenata l screenin g for nuchal transluc ency;Rec orded Elsewher e: No Locat ion: [facility] carolina [facility] S ource: EHR Biology Lecturer chiquita: Jennifer Loyd ce ID: 0001 Benson lable Time: 05:15:00 [facility] 17:18:59 Antenata l screenin g for malforma tion Completed 201711/03/2020 Encounte r for antenata l screenin g for malforma tions;Re corded Elsewher e: No Locat ion: [facility] S ource: EHR Biology Lecturer chiquita: Jennifer Loyd ce ID: 0001 Benson lable Time: 03:00:00 PM Rizwana busch, [facility] 17:25:26 Past pregnanc y history of gestatio nal diabetes mellitus [id number] Completed 201711/03/2020 Personal history of gestatio nal diabetes ;Recorde d Elsewher e: No Locat ion: [facility] S ource: EHR Biology Lecturer chiquita: Jennifer Loyd ce ID: 0001 Benson lable Time: 11:45:00 AM Rizwana Diallo [facility] 17:26:25 Pelvic and perineal pain [id number] Completed 201711/03/2020 Pelvic and perineal pain;Rec orded Elsewher e: No Locat ion: [facility] S ource: EHR Biology Lecturer chiquita: N Practi ce ID: 0001 Benson lable Time: 11:45:00 AM Rizwana busch, [facility] 17:26:45 Blood leukocyt e number above referenc e range [id number] Completed 201711/03/2020 Elevated white blood cell count, unspecif ied;Jm rded Elsewher e: No [facility]at [facility] S ource: EHR Biology Lecturer chiquita: N Practi ce ID: 0001 Benson lable Time: 01:00:00 PM Rizwana busch, [facility] 17:26:29 Gestatio n period, 30 weeks [id number] Completed 201711/03/2020 30 weeks gestatio n of pregnanc y;Practi ce ID: 0001 Rizwana busch, [facility] 17:26:[address] Concept Completed 201711/03/2020 Matern care for abnlt fetl hrt rate or rhym, 3rd tri, unsp;Rec orded Elsewher e: No Locat ion: [facility] S ource: EHR Biology Lecturer chiquita: N Leoti ce ID: 0001 Benson lable Time: 04:15:00 PM Rizwana busch [facility] 17:27:10 Gestatio n period, 32 weeks [id number] Completed 201711/03/2020 32 weeks gestatio n of pregnanc y;Record ed Elsewher e: No [facility]at ion[facility] S ource: EHR Biology Lecturer chiquita: N Practi ce ID: 0001 Benson lable Time: 09:15:00 AM Rizwana busch, [facility] 17:26:03 Gestatio n period, 33 weeks [id number] Completed 201711/03/2020 33 weeks gestatio n of pregnanc y;Record ed Elsewher e: No Locat ion: Debanastacia carolina [facility] S ource: EHR Biology Lecturer chiquita: N Practi ce ID: 0001 Benson lable Time: 09:30:00 AM Rizwana busch, [facility] 17:26:05 Gestatio nal diabetes mellitus [id number] Completed 201711/03/2020 Gestatio nal diabetes mellitus in pregnanc y, diet controll ed;Recor ded Elsewher e: No Locat ion: [facility] S ource: EHR Biology Lecturer chiquita: N Practi ce ID: 0001 Benson lable Time: 03:00:00 PM Rizwana busch, [facility] 17:26:23 Gestatio n period, 34 weeks [id number] Completed 201711/03/2020 34 weeks gestatio n of pregnanc y;Record ed Elsewher e: No Locat ion: Debanastacia carolina [facility] S ource: EHR Biology Lecturer chiquita: N Practi ce ID: 0001 Benson lable Time: 03:30:00 PM Rizwana busch, [facility] 17:26:06 Uterine size for dates discrepa ncy Completed 201711/03/2020 Uterine size-ruben e discrepa ncy, third trimeste r;Record ed Elsewher e: No Locat ion: Debanastacia carolina [facility] S ource: EHR Biology Lecturer chiquita: N Practi ce ID: 0001 Benson lable Time: 03:30:00 PM Rizwana busch, [facility] 17:27:20 Gestatio n period, 35 weeks [id number] Completed 201711/03/2020 35 weeks gestatio n of pregnanc y;Record ed Elsewher e: No Locat ion: John carolina [facility] S ource: EHR Biology Lecturer chiquita: N Practi ce ID: 0001 Benson lable Time: 03:00:00 PM Rizwana Diallo null, [facility] 17:26:08 Gestatio n period, 37 weeks [id number] Completed 201711/03/2020 37 weeks gestatio n of pregnanc y;Record ed Elsewher e: No [facility]at [facility] S ource: EHR Biology Lecturer chiquita: N Practi ce ID: 0001 Benson lable Time: 01:00:00 PM Rizwana busch, [facility] 17:26:19 Gestatio n period, 38 weeks [id number] Completed 201711/03/2020 38 weeks gestatio n of pregnanc y;Record ed Elsewher e: No Locat ion: [facility] S ource: EHR Biology Lecturer chiquita: N Practi ce ID: 0001 Benson lable Time: 11:00:00 AM Rizwana busch, [facility] 17:26:20 Low back pain [id number] Completed 201711/03/2020 Low back pain;Rec orded Elsewher e: No Locat ion: [facility] S ource: EHR Biology Lecturer chiquita: N Practi ce ID: 0001 Benson lable Time: 11:00:00 AM Rizwana busch, [facility] 17:26:37 Precipit ate labor [id number] Completed 201711/03/2020 Precipit ate labor;Pr actice ID: 0001 Rizwana busch, [facility] 17:26:48 Procedur e by method Completed 201711/03/2020 Encounte r for other general counseli ng and advice on contrace ption;Re corded Elsewher e: No Locat ion: [facility] S ource: EHR Biology Lecturer chiquita: N Practi ce ID: 0001 Benson lable Time: 10:15:00 AM Rizwana busch [facility] 17:25:44 Pregnanc y test negative [id number] Completed 201711/03/2020 Encounte r for pregnanc y test, result negative ;Recorde d Elsewher e: No Locat ion: [facility] S ource: EHR Biology Lecturer chiquita: N Rach ce ID: 0001 Benson lable Time: 09:45:00 AM Rizwana Diallo [facility], [facility] 17:26:51 Clinical finding Completed 201711/03/2020 Presence of (intraut erine) contrace ptive device;R ecorded Elsewher e: No Locat ion: [facility] N Rach ce ID: 0001 Benson lable Time: 09:45:00 AM Rizwana Diallo [facility], [facility] 17:25:32 Contrace ptive sheath status [id number] Completed 201811/03/2020 Encounte r for routine checking of IUD;Jm rded Elsewher e: No Locat ion: [facility] S ource: EHR Biology Lecturer chiquita: Jennifer Loyd ce ID: 0001 Benson lable Time: 01:00:00 PM Rizwana busch, [facility] 17:25:33 Disorder of intraute rine contrace ptive device Completed 201811/03/[address] [facility] compl of intraute rine contrace ptive device, init encntr;R ecorded Elsewher e: No Locat ion: [facility] S ource: EHR Biology Lecturer chiquita: Jennifer Baileyti ce ID: 0001 Benson lable Time: 03:00:00 PM Rizwana busch, [facility] 17:25:39 Micturit ion finding Completed 201811/03/2020 Urinary incontin ence;Rec orded Elsewher e: No Locat ion: [facility] S ource: EHR Biology Lecturer chiquita: N Leoti ce ID: 0001 Benson lable Time: 01:45:00 PM Rizwana busch, [facility] 17:25:30 Acute vaginiti s [id number] Completed 201811/03/2020 Vaginiti s;Record ed Elsewher e: No Locat ion: [facility] S ource: EHR Biology Lecturer chiquita: N Practi ce ID: 0001 Benson lable Time: 01:30:00 PM Rizwana busch, [facility] 17:18:56 Dysuria [id number] Completed 201811/03/2020 Dysuria; Recorded Elsewher e: No Locat ion: [facility] S ource: EHR Biology Lecturer chiquita: N Leoti ce ID: 0001 Benson lable Time: 11:30:00 AM Rizwana busch, [facility] 17:25:43 Cyst of vulva [id number] Completed 201811/03/2020 Vulvar cyst;Rec orded Elsewher e: No Locat ion: [facility] S ource: EHR Biology Lecturer chiquita: N Leoti ce ID: 0001 Benson lable Time: 11:30:00 AM Rizwana busch, [facility] 17:25:35 Problem Notes None recorded. Procedures Surgical History Date Name Laterality Status Provider Name and Address Organization Details Recorded Time 01/10/20 25 donor nephrectomy completed Ruby Patel [facility] 07/18/2025 12:53:37 05/15/20 24 IUD Removal completed Mert Smith MD [address], [place], [address], [facility] 05/15/2024 23:20:44 01/11/20 24 Date of Last Pap Smear completed Alia Pitts [facility] 05/15/2024 16:34:32 03/23/20 23 IUD Insertion completed Ashley Castillo [facility] [address], [place], [address], [facility] 03/23/2023 18:21:55 02/25/20 21 IUD Removal completed Ashley Castillo [facility] [address], [place], [address], [facility] 02/24/2021 17:33:49 12/16/[address] [facility] 11/23/2020 14:40:16 09/11/19 17 liposuction of subcutaneous tissue completed [facility] 11/23/2020 14:41:35 09/11/19 12 repair of umbilical hernia completed [facility] 11/23/2020 14:41:01 09/11/[address] [facility] 11/23/2020 14:40:43 Imaging Results None recorded. Procedure Notes None recorded. Medical Equipment None Reported. Allergies No known drug allergies Medications Name Sig Start Date Stop Date Status Note LastModified by Organization Details LastModified Time cyclobenz aprine 10 mg tablet take 1 tablet by oral route every 12 hours 12/18 completed Prescrib ed Elsewher e: No Locat ion: John figueroa [facility] M odify By: jared pinzonuntgerald DateTime : 05/07/20 18 11:00:00 AM Not [...] Not Available Not Available Not Available Necon (28) 1 mg-35 mcg tablet take 1 tablet by oral route every day for 28 days 09/07 completed Prescrib jorgito Bailey e: No Locat ion: John figueroa [facility] odify By: ivonne kilpatrick DateTime : 08/11/20 10:45:00 AM Not Available Not Available Not [...] completed Not Available Not Available Not Available benzonata te 200 mg capsule TAKE 1 CAPSULE BY MOUTH THREE TIMES DAILY NEEDED FOR COUGH 07/18 completed Not Available Not Available Not Available clarithro mycin 500 mg tablet 10/10 completed Not Available Not Available Not Available Loestrin Fe 09/30 (28-Day) 1 mg-20 mcg (21)/75 mg (7) tablet take 1 tablet by oral route every day 2024 active Not Available Not Available Not Avai lable ondansetr on HCl 8 mg tablet TAKE [...] lancets check BS QID 12/18 completed Prescrib jorgito Bailey e: No Locat ion: [facility] odify By: jared Figueroa ncounter DateTime : 03/19/20 18 03:49:18 PM Not Available Not Available Not Available dicyclomi ne 20 mg tablet TAKE 1 TABLET BY MOUTH EVERY 6 - 8 HOURS NEEDED FOR ABDOMINA L CRAMPING 03/23 completed Not Available Not Available Not Available cephalexi n 500 mg capsule TAKE 1 CAPSULE BY MOUTH 4 TIMES DAILY FOR 7 DAYS 07/18 completed Not Available Not Available Not Available neomycin- polymyxin -dexameth 3.5 mg/mL-10, 000 [...] completed Not Available Not Available Not Available Loestrin 20 (21) 1 mg-20 mcg tablet Take 1 tablet every day by oral route. 2024 active Not Available Not Available Not Avai lable prednison e 50 mg tablet TAKE 1 TABLET BY MOUTH DAILY 07/18 completed Not Available Not Available Not Available betametha sone dipropion ate 0.05 % topical cream APPLY THIN LAYER TOPICALL Y TO AFFECTED AREA(S) ONCE DAILY 10/10 completed Not Available Not Available Not Available docusate sodium 100 mg capsule TAKE 1 CAPSULE DAILY 07/18 completed Not Available Not Available Not Available oxybutyni n chloride ER 5 mg tablet,ex tended release 24 hr 10/25 completed Not Available Not Available Not Available cephalexi n 500 mg tablet TAKE ONE TABLET BY MOUTH TWICE A DAY 03/23 completed Not Available Not Available Not Available mupirocin 2 % topical ointment APPLY TOPICALL Y THREE TIMES DAILY 08/12 completed Not Available Not Available Not Available ibuprofen 600 mg tablet TAKE 1 TABLET BY MOUTH THREE TIMES DAILY NEEDED FOR 7 DAYS 03/26 completed Not Available Not Available Not Available polyethyl florence glycol 3350 17 gram/dose oral powder 10/25 completed Not Available Not Available Not Available Vitamin D2 1,250 mcg (50,000 unit) capsule Take 1 tablet once weekly for 12 weeks 2024 active Not Available Not Available Not Avai lable ondansetr on 4 mg disintegr ating tablet [...] Elsewher e: Yes Loca tion: John figueroa [facility] odify By: sylwia duarte DateTime : 07/04/20 13 08:30:00 AM Not Available Not Available Not Available Ortho Tri-Cycle n (28) 0.18 mg(7)/0.2 15mg(7)/0 .25 mg(7)-0.0 35 mg tablet TAKE ONE TABLET BY MOUTH ONCE DAILY 03/05 completed Prescrib ed Elsewher e: No Locat ion: John figueroa [facility] odify By: amkyinka Figueroa ncounter DateTime : 02/05/20 15 08:45:00 AM Not [...] mg-potass ium clavulana te 125 mg tablet TAKE 1 TABLET BY MOUTH EVERY 12 HOURS 07/18 completed Not Available Not Available Not Available [...] Elsewher e: No Locat ion: John figueroa [facility] odify By: ivonne Figueroa ncounter DateTime : 03/02/20 16 11:30:00 AM Not Available Not Available Not Available Prenate Elite 26 mg iron-1 mg tablet take 1 by Oral route every day for 1 day 02/04 completed Prescrib ed Elsewher e: No Locat ion: [facility] odify By: sylwia Joanna er DateTime : 12/18/19 10:00:00 AM Not Available Not Available Not Available STOCK PATCHER-PNV-DH A 28 mg iron-1 mg-200 mg capsule take 1 capsule by oral route every day 11/03 [facility] Locat ion: John figueroa [facility] M odify By: kendrick chi DateTime : 02/28/20 11:23:16 AM Not Available Not Available Not Available Pazeo 0.7 % eye drops INSTILL [...] and Address Organization Details Last Updated DateTime 07/18/2025 156.21 cm 31.2 kg/m2 45194.52 g 111/77 mm[Hg] Ruby Patel [facility] 07/18/2025 12:51:39 Social History Question Answer Notes LastModified by Organizat ion Details LastModified Time Tobacco Smoking Status Never Smoker Reanna Tom busch [facility] 11/18/2021 11:20:13 Do You Have An [...] Or The Highest Degree You Have Received? [id number] Information not available 11/18/2021 Are There Any [...] anxious, or unable to sleep at night)? [id number] Information not available 11/18/2021 Family History Relationship [...] available 2020 14:39:43 Medical History Condition Response Other Y Blood Transfusion N Dermatologic Disorders N Gestational Diabetes N Anxiety Disorder N Autoimmune disease N Arthritis N Polyps N Infertility N Acid Reflux (GERD) N Cancer N Varicosities N Stroke N Neurologic/Epilepsy N Fibromyalgia N Headaches N Kidney Disease N Heart Problems N Kidney or Bladder Problems N Eating Disorder N Art (IVF or FET) N Hepatitis/Liver Disease N Urinary Tract Infection N Asthma N Trauma/Violence N Thrombophilias N Allergies (Food, seasonal, environmental ) N Breast Cancer N Drug/Latex Allergies/Reactions N Lung Disease N Defects or Inherited Disease N Breast Problem N Hematologic disorders N Anesthesia Complications N History of STI N Deep Vein Thrombosis N Polycystic ovary syndrome N History of abnormal pap Y Endometriosis N High Cholesterol N Thyroid Problems N GI Problems N Anemia N Psychiatric Illness N Ovarian Cancer N Diabetes N Pulmonary (TB, Asthma) N Eczema N Abuse/Domestic Violence N Depression/ depression N Heart Disease N Pre-Eclampsia N Hypertension N Osteoporosis N Gynecological History Statement/Question Response Abnormal Pap Yes Flow Moderate Date of Last Mammogram Date of LMP 02/18/2025 N On BCP's at Conception? N STIs/STDs Y Was last menstrual period normal Y HPV Vaccine Y Colposcopy 12/15/2016 Duration of Flow (days) 3 Current Control Method BCPs Age at First Child 16 Are cycles usually normal Y Date of Last Colonoscopy Sexually Active? Y [...] ICD10 Code Diagnosis IMO Codes Diagnosis Note [id number] Mert Smith MD [place] [address] [address] 07/18/2025 12:43:37 07/18/2025 13:20:24 Pain in female genitalia on intercourse [id number] N94.10 [id number] Abnormal u terine bleeding [id number] 9100 N93.9 N93.0 Genital he rpes simplex 22242749 A60.00 Well woman health examination [id number] Z01.419 224460 Annual gynecologi simon exam performed. Patient will come back in a year unless there are new symptoms. Suggest Calcium with Vitamin D if not eating in diet. Patient advised to get annual flu shot. Recommend yearly physicals and preform monthly breast exams. Genetic testing is available for patients with family history of cancer. Engage in safe sexual practices, use condoms. Encouraged to have daily exercise. Avoid tobacco and illicit drugs, moderation of alcohol. If BMI greater than 25 dietary consult advised. If you have any questions please call or email. Pap smear- today laboratory evaluation - done pain with intercours e. Partner is big, uterus is tender, pushing on it recreates the pain. , pelvic ultrasound and follow-up Gynecologi c examination [id number] Z01.419 Venereal d isease screening 710431656 Z11.3 244216 Health Concerns Section Related Observation LastModified by Organization Detai ls LastModified Time None Recorded Concern Status LastModified by Organization Details LastModified Time None Recorded Payers Encounter Date Sequence Insurance Name Policy Number Policy Wagoner Covered Member ID Wagoner Member ID Guarantor Name 07/18/2025 1 [facility] (MEDICAID HMO) [id number] Lashae Meza [id number] Callum Meza Notes Date Note Type Note Provider Name and Address Organization Details Recorded Time 5 text/html Annual GYNReported by PatientHistoryFor history, patient reportsno gynecologic complaints.Genitourinary symptomsFor menstrual cycle, patient reportsnormal menses. For urinary symptoms, patient reportsno hematuria. For vulva, patient reportsno genital lesion. For vagina, patient reportsnormal vaginal discharge.Breast symptomsFor breast, patient reportsno breast painandno breast lump.ContraceptionFor current contraception, patient reportssatisfied with current contraceptionandoral contraceptives.Endocrine symptomsFor sexual complaints, patient reportspain during intercoursebut reportsno sexual complaints. For menopausal symptoms, patient reportsno menopausal symptoms.Psychological symptomsFor psychological symptoms, patient reportsno depressionandno anxiety.Preventative measuresFor preventive measures, patient reportsencourage self breast examinationandencourage regular exercise. Ruby busch, [facility] 07/18/2025 13:12:48 OBGyn Episode No OBEpisode recorded.
--- OUTSIDE RECORDS SUMMARY | 2025-08-10 12:49 | XMS_ITS ---
Author Organization [facility] Address [address] [place] [address] Care Team Providers Care Rail Splitter Name Role Phone Erika Shaw PA-C Primary Care Provider [phone] Transplant Episode Kidney Donor 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
--- OUTSIDE RECORDS SUMMARY | 2025-08-10 12:49 | XMS_ITS | Clinical Summary ---
Author Organization [facility] Address [address] [place] [address] Phone Care Team Providers Care Executive Assistant To President Name Role Phone Provider, Unknown Primary Care Provider Unavaila Fredi Alexander APRN, SKIRT MAKER Unavailable Allergies No known active allergies Medications [...] on file Legal Sex Female 2:38 PM PERSONAL INJURY LEGAL ASSISTANT Gender Identity Not on file Sexual Orientation Not on file Last Filed Vital Signs Vital Sign Reading Time Taken Comments Blood Pressure 120/74 10/23/2023 3:13 PM PERSONAL INJURY LEGAL ASSISTANT Pulse 60 10/23/2023 3:13 PM PERSONAL INJURY LEGAL ASSISTANT Temperature 36.7 C (98 F) 10/23/2023 3:13 PM PERSONAL INJURY LEGAL ASSISTANT Respiratory Rate 19 10/23/2023 3:13 PM PERSONAL INJURY LEGAL ASSISTANT Oxygen Saturation - - Inhaled Oxygen Concentration - - Weight - - Height 154.9 cm (5' 1) 10/23/2023 3:13 PM PERSONAL INJURY LEGAL ASSISTANT Body Mass Index - - Plan of [...] on patient's age to complete this topic Varicella Immunization Completed 01/31/2007, 1996 Human Papillomavirus (HPV) Immunization Completed 11/06/2013, 09/18/2012, 08/14/2012, Additional history exists DTaP/Tdap/Td Immunization Discontinued 2017, 08/03/2016, 01/31/2007, Additional history exists TdaP Immunization Completed 03/30/2018, , 01/31/2007 Rotavirus Immunization Aged Out No lo nger eligible based on patient's age to complete this topic Insurance Care Teams Executive Assistant To President Relationship Specialty Start Date End Date Provider, Unknown UNKNOWN PCP - General 08/23/16 Fredi Carrillo, POULTRY SCIENTIST, SKIRT MAKER [address] [place] [address] Nurse Practitioner Advanced Practice Nurse 11/02/23
--- OUTSIDE RECORDS SUMMARY | 2025-08-10 12:49 | XMS_ITS | Continuity of Care Document ---
Author Organization [facility] Address [address] [place] [address] Assessment No assessment recorded. Plan of Treatment Reminders Order Date Submit Date Provider Last Modified By Organization Details Last Modified Time Details Appointments U/S F/U 2024 10:15A Jocelin SMITH MD Not available Not available Not available Lab None recorded. Referral None recorded. Procedures None recorded. Surgeries None recorded. Imaging US, transvagi nal 2024 025 [email or web address], [address], [place], [address], 07/29/2025 20:29:01 Medication Orders None recorded. Patient TargetsNo targets recorded. Patient InstructionsNo instructions recorded. Reason for Referral None Reported. Results Created Date Observation Date Name Description Value Unit Range Abnormal Flag Note LastModifiedBy Organization Detail LastModifiedTime 07/18/2007/18/2025 CBC W/DIF F WBC 8.6 10'3/ uL 3.5-10 .5 Not Available [facility] (Lab) [address], [place], [address], 07/23/2025 18:20:24 07/18/20 25 07/18/2025 CBC W/DIF F RBC 4.13 10'6/ uL (based on docume nted legal sex) 3.80-5 .20 Not Available [facility] (Lab) [address], [place], [address], 07/23/2025 18:20:24 07/18/20 25 07/18/2025 CBC W/DIF F HGB 12.1 g/dL (based on docume nted legal sex) 11.6-1 5.4 Not Available [facility] (Lab) [address], [place], [address], 07/23/2025 18:20:24 07/18/20 25 07/18/2025 CBC W/DIF F HCT 38.4 % (based on docume nted legal sex) 34.0-4 5.0 Not Available [facility] (Lab) [address], [place], [address], 07/23/2025 18:20:24 07/18/20 25 07/18/2025 CBC W/DIF F MCV 93.0 fL 80.0-9 9.0 Not Available [facility] (Lab) [address], [place], [address], 07/23/2025 18:20:24 07/18/20 25 07/18/2025 CBC W/DIF F MCH 29.3 pg 27.0-3 4.0 Not Available [facility] (Lab) [address], [place], [address], 07/23/2025 18:20:24 07/18/20 25 07/18/2025 CBC W/DIF F MCHC 31.5 g/dL 32.0-3 5.5 low Not Available [facility] (Lab) [address], [place], [address], 07/23/2025 18:20:24 07/18/20 25 07/18/2025 CBC W/DIF F RDW 13.7 % 11.0-1 5.0 Not Available [facility] (Lab) [address], [place], [address], 07/23/2025 18:20:24 07/18/20 25 07/18/2025 CBC W/DIF F plt 360 10'3/ uL 150-40 0 Not Available [facility] (Lab) [address] [facility], [place], [address], 07/23/2025 18:20:24 07/18/20 25 07/18/2025 CBC W/DIF F MPV 10.4 fL 8.8-12 .1 Not Available [facility] (Lab) [address] [facility], [place], [address], 07/23/2025 18:20:24 07/18/20 25 07/18/2025 CBC W/DIF F NRBC's 0.0 % 0.0 Not Available [facility] (Lab) [address] [facility], [place], [address], 07/23/2025 18:20:24 07/18/20 25 07/18/2025 CBC W/DIF F absolute NRBCs 0.0 10'3/ uL no refere nce range establ ished Not Available [facility] (Lab) [address] [facility], [place], [address], 07/23/2025 18:20:24 07/18/20 25 07/18/2025 CBC W/DIF F neutrophils 61.8 % 34.0-7 3.0 Not Available [facility] (Lab) [address] [facility], [place], [address], 07/23/2025 18:20:24 07/18/20 25 07/18/2025 CBC W/DIF F lymphocytes 31.7 % 15.0-5 0.0 Not Available [facility] (Lab) [address] [facility], [place], [address], 07/23/2025 18:20:24 07/18/20 25 07/18/2025 CBC W/DIF F monocytes 5.2 % 1.0-15 .0 Not Available [facility] (Lab) [address] [facility], [place], [address], 07/23/2025 18:20:24 07/18/20 25 07/18/2025 CBC W/DIF F eosinophils 0.8 % 0.0-8. 0 Not Available [facility] (Lab) [address] [facility], [place], [address], 07/23/2025 18:20:24 07/18/20 25 07/18/2025 CBC W/DIF F basophils 0.2 % 0.0-2. 0 Not Available [facility] (Lab) [address] [facility], [place], [address], 07/23/2025 18:20:24 07/18/20 25 07/18/2025 CBC W/DIF [...] separ ately if prese nt. Not Available [facility] (Lab) [address] [facility], [place], [address], 07/23/2025 18:20:24 07/18/20 25 07/18/2025 CBC W/DIF F absolute neutrophils 5.3 10'3/ uL 1.5-8. 0 Not Available [facility] (Lab) [address] [facility], [place], [address], 07/23/2025 18:20:24 07/18/20 25 07/18/2025 CBC W/DIF F absolute lymphocytes 2.7 10'3/ uL 1.0-4. 0 Not Available [facility] (Lab) [address] [facility], [place], [address], 07/23/2025 18:20:24 07/18/20 25 07/18/2025 CBC W/DIF F absolute monocytes 0.5 10'3/ uL 0.2-1. 0 Not Available [facility] (Lab) [address] [facility], [place], [address], 07/23/2025 18:20:24 07/18/20 25 07/18/2025 CBC W/DIF F absolute eosinophils 0.1 10'3/ uL 0.0-0. 6 Not Available [facility] (Lab) [address] [facility], [place], [address], 07/23/2025 18:20:24 07/18/20 25 07/18/2025 CBC W/DIF F absolute basophils 0.0 10'3/ uL 0.0-0. 3 Not Available [facility] (Lab) [address] [facility], [place], [address], 07/23/2025 18:20:24 07/18/20 25 07/18/2025 CBC W/DIF F absolute immature granulocytes 0.0 10'3/ uL 0.00-0 .10 Refer ence range s for nonbi nary/ inter sex or unspe cifie d gende r patie nts have not been estab lishe d. Pleas e refer to the hemao wing table for range s estab lishe d for cisge nder patie nts and evalu ate in the clini simon warner xt of the indiv idual patie nt: https ://la lyn book. nm.or g/gen derx Not Available [facility] (Lab) [address] [facility], [place], [address], 07/23/2025 18:20:24 07/18/20 25 07/18/2025 CMP(C OMPRE HENSI VE METAB OLIC PANEL ) sodium 139 mmol/ L 133-14 6 Not Available [facility] (Lab) [address] [facility], [place], [address], 07/23/2025 18:20:24 07/18/20 25 07/18/2025 CMP(C OMPRE HENSI VE METAB OLIC PANEL ) potassium 4.2 mmol/ L 3.5-5. 1 Not Available [facility] (Lab) [address] [facility], [place], [address], 07/23/2025 18:20:24 07/18/20 25 07/18/2025 CMP(C OMPRE HENSI VE METAB OLIC PANEL ) chloride 104 mmol/ L 98-107 Not Available [facility] (Lab) [address] [facility], [place], [address], 07/23/2025 18:20:24 07/18/20 25 07/18/2025 CMP(C OMPRE HENSI VE METAB OLIC PANEL ) carbon dioxide 30 mmol/ L 21-31 Not Available [facility] (Lab) [address] [facility], [place], [address], 07/23/2025 18:20:24 07/18/20 25 07/18/2025 CMP(C OMPRE HENSI VE METAB OLIC PANEL ) anion gap 5 mmol/ L 4-13 Not Available [facility] (Lab) [address] [facility], [place], [address], 07/23/2025 18:20:24 07/18/20 25 07/18/2025 CMP(C OMPRE HENSI VE METAB OLIC PANEL ) blood urea nitrogen 16 mg/dL 7-25 Not Available [facility] (Lab) [address] [facility], [place], [address], 07/23/2025 18:20:24 07/18/20 25 07/18/2025 CMP(C OMPRE HENSI VE METAB OLIC PANEL ) creatinine 0.81 mg/dL 0.60-1 .30 Not Available [facility] (Lab) [address] [facility], [place], [address], 07/23/2025 18:20:24 07/18/20 25 07/18/2025 CMP(C OMPRE HENSI VE METAB OLIC PANEL ) egfrcr (CKD-epi 2020) >90 mL/mi n/1.7 3_m2 >=60 Not Available [facility] (Lab) [address] [facility], [place], [address], 07/23/2025 18:20:24 07/18/20 25 07/18/2025 CMP(C OMPRE HENSI VE METAB OLIC PANEL ) calcium 9.7 mg/dL 8.3-10 .5 Not Available [facility] (Lab) [address] [facility], [place], [address], 07/23/2025 18:20:24 07/18/20 25 07/18/2025 CMP(C OMPRE HENSI VE METAB OLIC PANEL ) glucose 70 mg/dL 70-100 Not Available [facility] (Lab) [address] [facility], [place], [address], 07/23/2025 18:20:24 07/18/20 25 07/18/2025 CMP(C OMPRE HENSI VE METAB OLIC PANEL ) protein, total 7.0 g/dL 6.4-8. 3 Not Available [facility] (Lab) [address] [facility], [place], [address], 07/23/2025 18:20:24 07/18/20 25 07/18/2025 CMP(C OMPRE HENSI VE METAB OLIC PANEL ) albumin 4.4 g/dL 3.5-5. 0 Not Available [facility] (Lab) [address] [facility], [place], [address], 07/23/2025 18:20:24 07/18/20 25 07/18/2025 CMP(C OMPRE HENSI VE METAB OLIC PANEL ) ALT 13 units /L 9-43 Not Available [facility] (Lab) [address] [place], [address], 07/23/2025 18:20:24 07/18/20 25 07/18/2025 CMP(C OMPRE HENSI VE METAB OLIC PANEL ) alkaline phosphatase 61 units /L 34-104 Not Available [facility] (Lab) [address] [place], [address], 07/23/2025 18:20:24 07/18/20 25 07/18/2025 CMP(C OMPRE HENSI VE METAB OLIC PANEL ) AST 14 units /L 13-39 Not Available [facility] (Lab) [address] [facility], [place], [address], 07/23/2025 18:20:24 07/18/20 25 07/18/2025 CMP(C OMPRE HENSI VE METAB OLIC PANEL ) bilirubin, total 0.6 mg/dL 0.2-1. 2 Not Available [facility] (Lab) [address] [facility], [place], [address], 07/23/2025 18:20:24 07/18/20 25 07/18/2025 LIPID PANEL ,AMA (LDL- CALC) total cholesterol 201 mg/dL 0-199 high Not Available [facility] (Lab) [address] [place], [address], 07/23/2025 18:20:25 07/18/20 25 07/18/2025 LIPID PANEL ,AMA (LDL- CALC) triglyceride s 194 mg/dL 0-150 high NCEP Refer ence Value s for Trigl yceri andrae: Mary l: <150 mg/dL Borde rline High: 150 - 199 mg/dL High: 200 - 499 mg/dL Very High: >/= 500 mg/dL Not Available [facility] (Lab) [address] [place], [address], 07/23/2025 18:20:25 07/18/20 25 07/18/2025 LIPID PANEL ,AMA (LDL- CALC) HDL cholesterol 54 mg/dL >40 Not Available [facility] (Lab) [address] [place], [address], 07/23/2025 18:20:25 07/18/20 25 07/18/2025 LIPID PANEL [...] mg/dL , HDL <40 mg/dL Not Available [facility] (Lab) [address] [facility], [place], [address], 07/23/2025 18:20:25 07/18/2007/18/2025 LIPID PANEL ,AMA (LDL- CALC) non-HDL cholesterol 147 mg/dL no refere nce range A reaso nable goal for non-H DL lucy stero l is one that is 30 mg/dL highe r than the LDL lucy stero l goal. Not Available [facility] (Lab) [address] [facility], [place], [address], 07/23/2025 18:20:25 07/18/2007/18/2025 LIPID PANEL ,AMA (LDL- CALC) chol/HDL ratio 3.7 . 0.0-5. 0 On January 03, 2023, [facility] labor atori ludy joaquin ed the equat ion for calcu latin g estim ated low-d ensit y lipop rotei n-cho leste rol (LDL- C) from the Fried harshil equat ion to the Elham n/Hop mike equat ion. This new equat ion is only valid for lipid panel s with trigl yceri andrae < 400 mg/dL . Justini es susan rachelon romel ed that this new equat ion will impro ve the accur acy of LDL-C , espec ially in [place] when LDL-C yolande ntrat ions are relat ively low (< 100 mg/dL ), trigl yceri andrae are eleva edd, or patie nt is non-f astin g. Refer ences : - Elham rodriguez, Bernardo Suárez, Jayy Coon , Rox fleming, Shoaib Delaney, Shoaib mcclain, [facility]is [facility] , and Chris Brito . 2013. Comp ariso n of a Novel Metho d vs the Fried harshil Equat ion for Estim ating Low-D ensit y Lipop rotei n Lucy stero l Level s from the Stand gracie Lipid Profi le. LOGAN: The Journ al of the Ameri can Medic al Assoc iatio n 310 (19): 2060- . - Janki hi V, Bhargavi J, Tila hi A, Leidy M, Francesca figueroa R, Hasmukh hi E, Maxi berrios RS, Brito SR, Elham n SS. Fast ing Versu s Nonfa sting and Low-D ensit y Lipop rotei n Lucy stero l Accur acy. Circu latio n. 2017Sep 12;137 (1):1 0-19. Not Available [facility] (Lab) [address] [facility], [place], [address], 07/23/2025 18:20:25 07/18/20 25 07/18/2025 TSH, REFLE X FREE T4 TSH 0.98 uIU/m L 0.30-5 .33 Not Available [facility] (Lab) [address] [facility], [place], [address], 07/23/2025 18:20:25 07/18/20 25 07/18/2025 VITAM IN D, 25-OH (TOTA L D2/D3 ) vitamin D, 25-hydroxy, total 20.1 NG/mL 30.0-1 00.0 low Sugge stive of Defic iency : <20 ng/mL Sugge stive of Insuf ficie ncy: 20-29 ng/mL Sugge stive of Suffi cienc y: 30-10 0 ng/mL Sugge stive of Toxic ity: >150 ng/mL Not Available [facility] (Lab) [address] [place], [address], 07/23/2025 18:20:26 07/18/20 25 07/18/2025 IMAGE GUIDE D PAP AND HPV REGAR DLESS image guided Pap, HPV regardless of Pap result SEE RESULT S BELOW CASE REPOR T: Cytol ogy Gynec ologi simon Repor t Case: [id number] Autho rifelin g Provi arlin: David Smith MD Colle cted: 07/18 1305 Order ing Locat ion: [place] Patho log[facility] Recei skylar: 07/19 0344 First Juan C n: Sandie Molina, CT Speci men: Juan [...] epith elial Alexey rodriguez or Maya jeter ([facility]) . 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 Not Available [facility] (Lab) [address], [place], [address], 07/23/2025 18:20:26 07/29/20 25 07/29/2025 US, trans vagin al No observ ation record ed. [email or web address], [place], [address], 07/29/2025 18:25:33 07/29/20 25 07/29/2025 US, trans vagin al No observ ation record ed. [email or web address] Tami [address] [place], [place] [id number], [place], [address], 07/30/2025 22:54:00 Result Notes None recorded. Problems Name Problem SNOMED Code Status Onset Date Resolution Date Notes Provider Name and Address Organization Details Recorded Time Primigra john [id number] Completed 201011/03/2020 Supervis ion of normal first pregnanc y;Practi ce ID: 0001 Rizwana busch, [facility] 17:26:55 anatomy study Completed 201011/03/2020 SCRN ANAT SURVEY;P ractice ID: 0001 Rizwana busch, [facility] 17:25:51 Glucose toleranc e test during pregnanc y - baby not yet delivere d outside referenc e range [id number] Completed 201011/03/2020 Gestatat ional Diabetes Antepart um;Pract ice ID: 0001 Rizwana busch, [facility] 17:18:54 Maternal care for diminish ed movement s Completed 201011/03/2020 Decrease d movement s, affectin g manageme nt of mother, antepart um conditio n or complica tion;Pra ctice ID: 0001 Rizwana busch, [facility] 17:26:40 Delivery normal [id number] Completed 201011/03/2020 Normal delivery ;Practic e ID: 0001 Rizwana Dial[facility], [facility] 17:25:38 Single live from singleto n pregnanc y [id number] Completed 201011/03/2020 Mother with single liveborn ;Practic e ID: 0001 Rizwana Diallo [facility], [facility] 17:27:03 Postpart um care Completed 201011/03/2020 Routine postpart um follow-u p;Record ed Elsewher e: No Locat ion: John figueroa [facility] S ource: EHR Roving Can Tender chiquita: N Practi ce ID: 0001 Benson lable Time: 04:00:00 [facility] 17[facility]26:46 Insertio n of intraute rine contrace ptive device Completed 201011/03/2020 INSERTIO N OF IUD;Jm rded Elsewher e: No Locat ion: John figueroa [facility] S ource: EHR Roving Can Tender chiquita: N Leoti ce ID: 0001 Benson lable Time: 10:30:00 AM Rizwana busch [facility] 17:26:32 Uses IUD (intraut erine device) contrace ption [id number] Completed 201111/03/2020 Surveill ance of intraute rine contrace ptive device;R ecorded Elsewher e: No Locat ion: [facility] N Leoti ce ID: 0001 Benson lable Time: 04:00:00 PM Rizwana busch [facility] 17:26:34 Hernia of abdomina l cavity [id number] Completed 201111/03/2020 Hernia of other specifie d sites without mention of obstruct ion or gangrene ;Recorde d Elsewher e: No Locat ion: [facility]: N Rach ce ID: 0001 Benson lable Time: 08:30:00 AM Rizwana Diallo [facility] 1 17:26:24 Removal of intraute rine device Completed 201211/03/2020 REMOVAL OF IUD;Jm rded Elsewher e: No Locat ion: [facility]: [facility]: N Leoti ce ID: 0001 Benson lable Time: 08:30:00 AM Rizwana busch [facility] 17:26:58 Dysfunct ional uterine bleeding Completed 201211/03/2020 Other disorder s of menstrua tion and other abnormal bleeding from female genital tract;Re corded Elsewher e: No Locat ion: [facility]: [facility]: N Leoti ce ID: 0001 Benson lable Time: 08:30:00 AM Rizwana [facility] 17:25:41 Female genital organ symptoms [id number] Completed 201211/03/2020 Unspecif ied symptom associat ed with female genital organs;R ecorded Elsewher e: No Locat ion: [facility] S ource: EHR Roving Can Tender chiquita: N Leoti ce ID: 0001 Benson lable Time: 08:15:00 AM Rizwana Diallo [facility], [facility] 17:25:49 Family planning surveill ance Completed 201311/03/2020 Surveill ance of other contrace ptive method;R ecorded Elsewher e: No Locat ion: [facility] S ource: EHR Roving Can Tender chiquita: N Practi ce ID: 0001 Benson lable Time: 10:00:00 AM Rizwana Diallo [facility], [facility] 17:25:48 Educatio n Completed 201311/03/2020 Other general counseli ng and advice on contrace ptive manageme nt;Recor ded Elsewher e: No Locat ion: [facility] S ource: EHR Roving Can Tender chiquita: Y Leoti ce ID: 0001 Benson lable Time: 10:00:00 AM Rizwana busch, [facility] 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 17:27:13 Obesity [id number] Completed 201411/03/2020 Obesity; Recorded Elsewher e: No Locat ion: [facility] S ource: EHR Roving Can Tender chiquita: N Practi ce ID: 0001 Benson lable Time: 08:45:00 AM Rizwana busch, [facility] 17:26:43 Cytologi c finding Completed 201411/03/2020 Papanico laou smear of cervix with low grade squamous intraepi thelial lesion (LGSIL); Recorded Elsewher e: No Locat ion: [facility] S ource: EHR Roving Can Tender chiquita: N Rach ce ID: 0001 Benson lable Time: 11:00:00 AM Rizwana busch, [facility] 17:25:36 Finding of regulari ty of menstrua l cycle Completed 201411/03/2020 Irregula r bleeding ;Recorde d Elsewher e: No Locat ion: [facility] S ource: EHR Roving Can Tender chiquita: Pushpa Loyd ce ID: 0001 Benson lable Time: 10:45:00 AM Rizwana busch, [facility] 17:25:54 Low grade squamous intraepi thelial lesion on cervical Papanico laou smear [id number] Completed 201411/03/2020 LGSIL on pap smear of cervix;R ecorded Elsewher e: No Locat ion: [facility] S ource: EHR Roving Can Tender chiquita: N Rach ce ID: 0001 Benson lable Time: 10:45:00 AM Rizwana busch, [facility] 17:26:39 Infectio n screenin g Completed 201511/03/2020 Encounte r for screenin g for oth infec/pa rastc diseases ;Recorde d Elsewher e: No Locat ion: [facility] S ource: EHR Roving Can Tender chiquita: N Leoti ce ID: 0001 Benson lable Time: 11:30:00 AM Rizwana busch [facility] 17:26:31 Syphilis test finding [id number] Completed 201511/03/2020 Encntr screen for infectio ns w sexl mode of transmis s;Record ed Elsewher e: No Locat ion: Debanastacia carolina [facility] S ource: EHR Roving Can Tender chiquita: N Practi ce ID: 0001 Benson lable Time: 11:30:00 AM Rizwana busch [facility] 17:27:15 Gestatio n less than 9 weeks [id number] Completed 201511/03/2020 Less than 8 weeks gestatio n of pregnanc y;Record ed Elsewher e: No [facility] S ource: EHR Roving Can Tender chiquita: N Practi ce ID: 0001 Benson lable Time: 11:30:00 AM Rizwana busch, [facility] 17:25:55 Secondar y amenorrh ea [id number] Completed 201511/03/2020 Secondar y amenorrh ea;Recor ded Elsewher e: No Locat ion: Debanastacia carolina [facility] S ource: EHR Roving Can Tender chiquita: N Practi ce ID: 0001 Benson lable Time: 11:30:00 AM Rizwana busch, [facility] 17:27:02 Gestatio n period, 13 weeks [id number] Completed 201511/03/2020 13 weeks gestatio n of pregnanc y;Record ed Elsewher e: No [facility] R[employer] Can Tender chiquita: N Practi ce ID: 0001 Benson lable Time: 09:15:00 AM Rizwana busch [facility] 17:25:57 Uterine size for dates discrepa ncy Completed 201511/03/2020 Uterine size-ruben e discrepa ncy, first trimeste r;Record ed Elsewher e: No Locat ion: John figueroa [facility] S ource: EHR Roving Can Tender chiquita: N Practi ce ID: [id number] Benson lable Time: 09:15:00 AM Rizwana busch, [facility] 17:27:19 Pregnanc y, childbir th and puerperi um finding Completed 201511/03/2020 Encounte r for supervis ion of normal 1st pregnanc y, 2nd trimeste r;Record ed Elsewher e: No Locat ion: Debanastacia figueroa [facility] S ource: EHR Roving Can Tender chiquita: N Leoti ce ID: 0001 Benson lable Time: 09:30:00 AM Rizwana Diallo null, [facility] 17:26:[address] Concept Completed 201511/03/2020 Decrease d movement s, second trimeste r, unsp;Rec orded Elsewher e: No [facility] Roving Can Tender chiquita: N Rach ce ID: [id number] Benson lable Time: 11:15:00 AM Rizwana Diallo null, [facility] 17:27:06 Gestatio n period, 20 weeks [id number] Completed 201511/03/2020 20 weeks gestatio n of pregnanc y;Record ed Elsewher e: No [facility] Roving Can Tender chiquita: N Leoti ce ID: [id number] Benson lable Time: 11:15:00 AM Rizwana busch, [facility] 17:26:[address] Concept Completed 201511/03/2020 Decrease d movement s, second trimeste r, fetus 1;Record ed Elsewher e: No Locat ion: [facility] S ource: EHR Roving Can Tender chiquita: N Leoti ce ID: [id number] Benson lable Time: 10:45:00 AM Rizwana busch, [facility] [facility] 17:27:07 prematur e rupture of membrane s [id number] Completed 201511/03/2020 Pretrm edgardo ROM, unsp time betw rupt and onset labr, 2nd tri;Prac damaris ID: 0001 Rizwana busch, [facility] 17:26:54 Gestatio n period, 19 weeks [id number] Completed 201511/03/2020 19 weeks gestatio n of pregnanc y;Practi ce ID: 0001 Rizwana busch, [facility] 17:25:59 heart finding Completed 201511/03/2020 Abnlt in heart rate and rhythm comp labor and delivery ;Recorde d Elsewher e: No Locat ion: [facility] S ource: EHR Roving Can Tender chiquita: N Practi ce ID: 0001 Benson lable Time: 08:59:24 AM Rizwana busch, [facility] 17:25:53 Gestatio n period, 36 weeks [id number] Completed 201511/03/2020 36 weeks gestatio n of pregnanc y;Record ed Elsewher e: No Locat ion: [facility] S ource: EHR Roving Can Tender chiquita: N Practi ce ID: 0001 Benson lable Time: 10:30:00 AM Rizwana busch, [facility] 17:26:17 Finding of trunk structur e Completed 201511/03/2020 Oth diseases and conditio ns compl preg/chl dbrth;Re corded Elsewher e: No Locat ion: [facility] S ource: EHR Roving Can Tender chiquita: N Practi ce ID: 0001 Benson lable Time: 10:30:00 AM Rizwana busch [facility] 17:27:18 Normal pregnanc y in multigra john [id number] Completed 201511/03/2020 Encounte r for suprvsn of normal pregnanc y, third trimeste r;Record ed Elsewher e: No Locat ion: John figueroa [facility] S ource: EHR Roving Can Tender chiquita: N Practi ce ID: 0001 Benson lable Time: 08:45:00 AM Rizwana busch, [facility] 17:26:[address] Concept Completed 201511/03/2020 Decrease d movement s, third trimeste r, unsp;Rec orded Elsewher e: No Locat ion: John figueroa [facility] S ource: EHR Roving Can Tender chiquita: N Practi ce ID: 0001 Benson lable Time: 09:52:00 AM Rizwana busch, [facility] 17:27:09 Term pregnanc y delivere d [id number] Completed 201511/03/2020 Encounte r for full-ter m uncompli cated delivery ;Practic e ID: 0001 Rizwana busch, [facility] 17:27:16 Gestatio n period, 39 weeks [id number] Completed 201511/03/2020 39 weeks gestatio n of pregnanc y;Practi ce ID: 0001 Rizwana busch, [facility] 17:26:21 Lochia finding Completed 201611/03/2020 Encounte r for routine postpart um follow-u p;Record ed Elsewher e: No Locat ion: John carolina [facility] S ource: EHR Roving Can Tender chiquita: N Practi ce ID: 0001 Benson lable Time: 03:15:00 PM Rizwana busch, [facility] 17:26:36 Puerpera l endometr itis [id number] Completed 201611/03/2020 Endometr itis postpart um;Recor ded Elsewher e: No Locat ion: John figueroa [facility] S ource: EHR Roving Can Tender chiquita: N Leoti ce ID: 0001 Benson lable Time: 03:15:00 PM Rizwana busch [facility] 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 17:26:28 Human papillom avirus deoxyrib onucleic acid detected , high risk on cervical specimen [id number] Completed 201611/03/2020 Cervical high risk HPV DNA test positive ;Recorde d Elsewher e: No Locat ion: [facility] S ource: [facility] Roving Can Tender chiquita: N Leoti ce ID: 0001 Benson lable Time: 02:39:48 PM Rizwana busch, [facility] 17:26:26 Atypical squamous cells of undeterm ined signific ance on cervical Papanico laou smear [id number] Completed 201611/03/2020 Atyp squam cell of undet signfc cyto smr crvx (ASC-US) ;Recorde d Elsewher e: No Locat ion: [facility] Leoti ce ID: 0001 Benson lable Time: 10:30:00 AM Rizwana busch [facility] 17:25:27 Screenin g for malignan t neoplasm of cervix Completed 201611/03/2020 Screenin g for malignan t neoplasm s of the cervix;R ecorded Elsewher e: No Locat ion: [facility] S ource: EHR Roving Can Tender chiquita: N Practi ce ID: 0001 Benson lable Time: 05:30:00 PM Rizwana busch [facility] 17:27:[address] Concept Completed 201611/03/2020 Anxiety disorder , unspecif ied;Jm rded Elsewher e: No Locat ion: [facility] S ource: EHR Roving Can Tender chiquita: N Practi ce ID: 0001 Benson lable Time: 05:30:00 PM Rizwana busch [facility] 17:27:05 Body mass index 30+ - obesity [id number] Completed 201611/03/2020 Body mass index (BMI) 32.0-32. 9, adult;Re corded Elsewher e: No Locat ion: [facility] S ource: EHR Roving Can Tender chiquita: N Practi ce ID: 0001 Benson lable Time: 05:30:00 PM Rizwana busch [facility] 17:25:29 Amenorrh ea [id number] Completed 201711/03/2020 Amenorrh ea;Recor ded Elsewher e: No Locat ion: [facility] S ource: EHR Roving Can Tender chiquita: N Leoti ce ID: 0001 Benson lable Time: 05:00:00 PM Rizwana busch [facility] 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 17:27:12 Pregnanc y detectio n examinat ion Completed 201711/03/2020 Encounte r for pregnanc y test, result positive ;Recorde d Elsewher e: No [facility]: E[facility] Roving Can Tender chiquita: N Leoti ce ID: 0001 Benson lable Time: 05:00:00 PM Rizwana busch, [facility] 17:26:49 Antenata l screenin g Completed 201711/03/2020 Encounte r for antenata l screenin g for nuchal transluc ency;Rec orded Elsewher e: No Locat ion: [facility] S ource: EHR Roving Can Tender chiquita: N Leoti ce ID: 0001 Benson lable Time: 05:15:00 PM Rizwana busch, [facility] 17:18:59 Antenata l screenin g for malforma tion Completed 201711/03/2020 Encounte r for antenata l screenin g for malforma tions;Re corded Elsewher e: No Locat ion: [facility] N Leoti ce ID: 0001 Benson lable Time: 03:00:00 PM Rizwana busch, [facility] 17:25:26 Past pregnanc y history of gestatio nal diabetes mellitus [id number] Completed 201711/03/2020 Personal history of gestatio nal diabetes ;Recorde d Elsewher e: No Locat ion: [facility] S ource: EHR Roving Can Tender chiquita: N Leoti ce ID: 0001 Benson lable Time: 11:45:00 AM Rizwana busch, [facility] 17:26:25 Pelvic and perineal pain [id number] Completed 201711/03/2020 Pelvic and perineal pain;Rec orded Elsewher e: No [facility] E[facility] Roving Can Tender chiquita: N Practi ce ID: 0001 Benson lable Time: 11:45:00 AM Rizwana busch [facility] 17:26:45 Blood leukocyt e number above referenc e range [id number] Completed 201711/03/2020 Elevated white blood cell count, unspecif ied;Jm rded Elsewher e: No [facility]: EHR Roving Can Tender chiquita: N Practi ce ID: 0001 Benson lable Time: 01:00:00 PM Rizwana busch [facility] 17:26:29 Gestatio n period, 30 weeks [id number] Completed 201711/03/2020 30 weeks gestatio n of pregnanc y;Practi ce ID: 0001 Rizwana busch [facility] 17:26:[address] Concept Completed 201711/03/2020 Matern care for abnlt fetl hrt rate or rhym, 3rd tri, unsp;Rec orded Elsewher e: No Locat ion: [facility] S ource: EHR Roving Can Tender chiquita: N Practi ce ID: 0001 Benson lable Time: 04:15:00 PM Rizwana busch [facility] 17:27:10 Gestatio n period, 32 weeks [id number] Completed 201711/03/2020 32 weeks gestatio n of pregnanc y;Record ed Elsewher e: No Locat ion: [facility] S ource: EHR Roving Can Tender chiquita: N Practi ce ID: 0001 Benson lable Time: 09:15:00 AM Rizwana busch [facility] 17:26:03 Gestatio n period, 33 weeks [id number] Completed 201711/03/2020 33 weeks gestatio n of pregnanc y;Record ed Elsewher e: No [facility]: EHR Roving Can Tender chiquita: N Practi ce ID: 0001 Benson lable Time: 09:30:00 AM Rizwana busch, [facility] 17:26:05 Gestatio nal diabetes mellitus [id number] Completed 201711/03/2020 Gestatio nal diabetes mellitus in pregnanc y, diet controll ed;Recor ded Elsewher e: No Locat ion: John figueroa [facility] S ource: EHR Roving Can Tender chiquita: N Leoti ce ID: 0001 Benson lable Time: 03:00:00 PM Rizwana busch, [facility] 17:26:23 Gestatio n period, 34 weeks [id number] Completed 201711/03/2020 34 weeks gestatio n of pregnanc y;Record ed Elsewher e: No Locat ion: John figueroa [facility] S ource: EHR Roving Can Tender chiquita: N Rach ce ID: 0001 Benson lable Time: 03:30:00 PM Rizwana busch, [facility] 17:26:06 Uterine size for dates discrepa ncy Completed 201711/03/2020 Uterine size-ruben e discrepa ncy, third trimeste r;Record ed Elsewher e: No Locat ion: [facility] S ource: EHR Roving Can Tender chiquita: N Leoti ce ID: 0001 Benson lable Time: 03:30:00 PM Rizwana busch, [facility] 17:27:20 Gestatio n period, 35 weeks [id number] Completed 201711/03/2020 35 weeks gestatio n of pregnanc y;Record ed Elsewher e: No [facility]: EHR Roving Can Tender chiquita: N Leoti ce ID: 0001 Benson lable Time: 03:00:00 PM Rizwana busch, [facility] 17:26:08 Gestatio n period, 37 weeks [id number] Completed 201711/03/2020 37 weeks gestatio n of pregnanc y;Record ed Elsewher e: No [facility]: E[facility] Roving Can Tender chiquita: N Practi ce ID: 0001 Benson lable Time: 01:00:00 PM Rizwana busch, [facility] 17:26:19 Gestatio n period, 38 weeks [id number] Completed 201711/03/2020 38 weeks gestatio n of pregnanc y;Record ed Elsewher e: No Locat ion: [facility] S ource: EHR Roving Can Tender chiquita: N Practi ce ID: 0001 Benson lable Time: 11:00:00 AM Rizwana busch, [facility] 17:26:20 Low back pain [id number] Completed 201711/03/2020 Low back pain;Rec orded Elsewher e: No Locat ion: [facility] S ource: EHR Roving Can Tender chiquita: N Practi ce ID: 0001 Benson lable Time: 11:00:00 AM Rizwana busch, [facility] 17:26:37 Precipit ate labor [id number] Completed 201711/03/2020 Precipit ate labor;Pr actice ID: 0001 Rizwana busch, [facility] 17:26:48 Procedur e by method Completed 201711/03/2020 Encounte r for other general counseli ng and advice on contrace ption;Re corded Elsewher e: No Locat ion: [facility] S ource: EHR Roving Can Tender chiquita: N Practi ce ID: 0001 Benson lable Time: 10:15:00 AM Rizwana busch, [facility] 17:25:44 Pregnanc y test negative [id number] Completed 201711/03/2020 Encounte r for pregnanc y test, result negative ;Recorde d Elsewher e: No Locat ion: [facility] S ource: EHR Roving Can Tender chiquita: N Practi ce ID: 0001 Benson lable Time: 09:45:00 AM Rizwana busch, [facility] 17:26:51 Clinical finding Completed 201711/03/2020 Presence of (intraut erine) contrace ptive device;R ecorded Elsewher e: No Locat ion: [facility] S ource: EHR Roving Can Tender chiquita: N Practi ce ID: 0001 Benson lable Time: 09:45:00 AM Rizwana busch, [facility] 17:25:32 Contrace ptive sheath status [id number] Completed 201811/03/2020 Encounte r for routine checking of IUD;Jm rded Elsewher e: No Locat ion: [facility] N Practi ce ID: 0001 Benson lable Time: 01:00:00 PM Rizwana busch, [facility] 17:25:33 Disorder of intraute rine contrace ptive device Completed 201811/03/2020 [facility] compl of intraute rine contrace ptive device, init encntr;R ecorded Elsewher e: No Locat ion: [facility] S ource: EHR Roving Can Tender chiquita: N Practi ce ID: 0001 Benson lable Time: 03:00:00 PM Rizwana busch, [facility] 17:25:39 Micturit ion finding Completed 201811/03/2020 Urinary incontin ence;Rec orded Elsewher e: No Locat ion: [facility] S ource: EHR Roving Can Tender chiquita: N Practi ce ID: 0001 Benson lable Time: 01:45:00 PM Rizwana busch, [facility] 17:25:30 Acute vaginiti s [id number] Completed 201811/03/2020 Vaginiti s;Record ed Elsewher e: No [facility]: EHR Roving Can Tender chiquita: N Practi ce ID: 0001 Benson lable Time: 01:30:00 PM Rizwana busch, [facility] 17:18:56 Dysuria [id number] Completed 201811/03/2020 Dysuria; Recorded Elsewher e: No [facility]: EHR Roving Can Tender chiquita: N Practi ce ID: 0001 Benson lable Time: 11:30:00 AM Rizwana busch, [facility] 17:25:43 Cyst of vulva [id number] Completed 201811/03/2020 Vulvar cyst;Rec orded Elsewher e: No Locat ion: [facility] S ource: EHR Roving Can Tender hciquita: N Practi ce ID: 0001 Benson lable Time: 11:30:00 AM Rizwana busch, [facility] 17:25:35 Problem Notes None recorded. Procedures Surgical History Date Name Laterality Status Provider Name and Address Organization Details Recorded Time 01/10/20 25 donor nephrectomy completed Ruby Patel [facility] 07/18/2025 12:53:37 05/15/20 24 IUD Removal completed Mert Smith MD [address], [place], [address], [facility] 05/15/2024 23:20:44 01/11/20 24 Date of Last Pap Smear completed Alia Pitts [facility] 05/15/2024 16:34:32 03/23/20 23 IUD Insertion completed ANTOINETTE Castillo- [address], [place], [address], [facility] 03/23/2023 18:21:55 02/25/20 21 IUD Removal completed Ashley Castillo, [facility] [address], [place], [address], [facility] 02/24/2021 17:33:49 12/16/19 17 Colposcopy completed [facility] 11/23/2020 14:40:16 09/11/19 17 liposuction of subcutaneous tissue completed [facility] 11/23/2020 14:41:35 09/11/19 12 repair of umbilical hernia completed [facility] 11/23/2020 14:41:01 09/11/19 09 Tonsillectomy completed [facility] 11/23/2020 14:40:43 Imaging Results None recorded. Procedure Notes None recorded. Medical Equipment None Reported. Allergies No known drug allergies Medications Name Sig Start Date Stop Date Status Note LastModified by Organization Details LastModified Time cyclobenz aprine 10 mg tablet take 1 tablet by oral route every 12 hours 12/18 completed Prescrib ed Elsewher e: No Locat ion: John figueroa [facility] M odify By: jared kilpatrick DateTime : 05/07/20 [...] Bailey e: No Locat ion: John figuero[facility] Jocelin odify By: ivonne kilpatrick DateTime : 08/11/20 [...] check BS QID 12/18 completed Prescrib ed [facility] e: No Locat ion: [facility] odify By: jared kilpatrick DateTime : 03/19/20 [...] Not Available Not Available Not Available Loestrin 09/30 (21) 1 mg-20 mcg tablet Take 1 [...] day before breakfas t 02/04 completed Prescrib jorgito Bailey e: Yes Loca tion: [place] [facility] odify By: sylwia Marshall er DateTime : 07/04/20 13 08:30:00 AM Not Available Not Available Not Available Ortho Tri-Cycle n (28) 0.18 mg(7)/0.2 15mg(7)/0 .25 mg(7)-0.0 35 mg tablet TAKE ONE TABLET BY MOUTH ONCE DAILY 03/05 completed Prescrib ed Elsewher e: No Locat ion: [facility] odify By: ritu Figueroa ncounter DateTime : 02/05/20 15 08:45:00 [...] Prescrib ed Elsewher e: No Locat ion: [facility] odify By: ivonne Figueroa ncounter DateTime : 03/02/20 16 11:30:00 AM Not Available Not Available Not Available Prenate Elite 26 mg iron-1 mg tablet take 1 by Oral route every day for 1 day 02/04 completed Prescrib ed Elsewher e: No Locat ion: [facility] odify By: sylwia Marshall er DateTime : 12/18/19 14 10:00:00 AM Not Available Not Available Not Available [employer] A 28 mg iron-1 mg-200 mg capsule take 1 capsule by oral route every day 11/03 completed Prescrib ed Elsewher e: No Locat ion: [facility] M odify By: kendrick chi DateTime : [...] Not Available Not Available Not Available Vitals None Recorded Social History Question Answer Notes LastModified by Organizat ion Details LastModified Time Tobacco Smoking Status Never Smoker Reanna Santos [facility] 11/18/2021 11:20:13 Do You Have An [...] Or The Highest Degree You Have Received? [id number] Information not available 11/18/2021 Are There Any [...] anxious, or unable to sleep at night)? [id number] Information not available 11/18/2021 Family History Relationship [...] ICD10 Code Diagnosis IMO Codes Diagnosis Note [id number] Mert Smith MD [place] [address] [address] 07/18/2025 12:43:37 07/18/2025 13:20:24 Pain in female genitalia on intercourse 78472950 N94.10 [id number] Abnormal u terine bleeding [id number] 9100 N93.9 N93.0 Genital he rpes simplex 12673327 A60.00 Well woman health examination 284930843 Z01.419 [id number] Annual gynecologi simon exam performed. Patient will [...] pelvic ultrasound and follow-up Gynecologi c examination 54111866 Z01.419 Venereal d isease screening 474559755 Z11.3 [id number] Mert Smith MD [place] [address] [address] 07/29/2025 12:49:15 07/29/2025 13:12:56 Pain in pelvis 34635918 R10.20 N81.4 [id number] Health Concerns Section Related Observation LastModified by Organization Detai ls LastModified Time None Recorded Concern Status LastModified by Organization Details LastModified Time None Recorded Payers Encounter Date Sequence Insurance Name Policy Number Policy Wagoner Covered Member ID Wagoner Member ID Guarantor Name 07/29/2025 1 [facility] (MEDICAID HMO) [id number] Lashae Meza [id number] Callum Meza OBGyn Episode No OBEpisode recorded.
--- OUTSIDE RECORDS SUMMARY | 2025-08-10 12:49 | XMS_ITS | Data Portability ---
Author Organization [facility] Address [address] [place] [address] Assessment Encounter Date Assessment Date Assessment LastModified by Organization Details LastModified Time 07/18/2025 07/18/2025 Annual gynecological exam performed. Patient will come back in a year unless there are new symptoms. [email or web address] Not available 07/18/2025 12:47:20 Plan of Treatment Reminders Order Date Submit Date Provider Last Modified By Organization Details Last Modified Time Details Appointments U/S F/U 2024 10:15A Jocelin SMITH MD Not available Not available Not available Lab pap, IG + HR HPV - HPV regardles s but if HPV is positive need subtyping 16,18/[address]/gc/tri ch 2024 025 [facility] (Lab), [address], [place], [address], 07/23/2025 18:20:26 CBC w/ auto diff 2024 025 [facility] (Lab), [address], [place], [address], 07/23/2025 18:20:24 CMP, serum or plasma 2024 025 [facility] (Lab), [address], [place], [address], 07/23/2025 18:20:25 lipid panel, blood 2024 025 [facility] (Lab), [address], [place], [address], 07/23/2025 18:20:25 TSH, serum or plasma 2024 025 [facility] (Lab), [address], [place], [address], 07/23/2025 18:20:26 25-hydrox yvitamin D2 + 25-hydrox yvitamin D3, QN, serum or plasma 2024 025 [facility] (Lab), [address], [place], [address], 07/23/2025 18:20:26 Referral None recorded. Procedures None recorded. Surgeries None recorded. Imaging US, transvagi nal 2024 [address], [address], [place], [address], 07/29/2025 20:29:01 US, transvagi nal [address] [facility] [address], [place], [address], 10/24/2024 22:34:30 US, pelvis, complete 2024 025 [email or web address] [place], [address], [place], [address], 11/20/2024 11:18:27 Medication Orders valacyclo vir 500 mg tablet [address] [facility], [address], [place], [address], 07/18/2025 13:09:27 Loestrin 1/20 (21) 1 mg-20 mcg tablet [address] [facility], [address], [place], [address], 07/18/2025 13:09:27 Loestrin Fe 1/20 (28-Day) 1 mg-20 mcg (21)/75 mg (7) tablet 2024 025 [facility], [address] [place], [address], 10/28/2024 12:54:35 Loestrin Fe 1/20 (28-Day) 1 mg-20 mcg (21)/75 mg (7) tablet 2024 025 [facility], [address], [place], [address], 10/17/2024 11:31:25 Patient TargetsNo targets recorded. Patient InstructionsNo instructions recorded. Reason for Referral None Reported. Results Created Date Observation Date Name Description Value Unit Range Abnormal Flag Note LastModifiedBy Organization Detail LastModifiedTime 10/10/1910/10/2024 HEPAT ITIS B SURFA CE ANTIG EN hepatitis B surface antigen Non-re active non-re active This assay was perfo rmed using [employer] ratio n reage nts and test kits. Value s obtai napoleon with other assay metho ds or kits canno t be used inter joaquin eably . Not Available [facility] (Lab) [address], [place], [address], 10/11/2024 12:35:45 10/10/1910/10/2024 HIV 1/2 ANTIG EN/AN TIBOD Y, REFLE X CONFI RMATI ON HIV antigen/anti body Nonrea ctive nonrea ctive HIV-1 antig en and HIV-1 /HIV- 2 antib odies were not detec edd. No labor atory evide nce of HIV infec tion. Not Available [facility] (Lab) [address], [place], [address], 10/11/2024 12:35:46 10/10/19 25 10/10/2024 HEPAT ITIS C ANTIB OLIVA SCREE N, REFLE X TO CONFI RMATI ON hepatitis C antibody Non-re active non-re active Antib odies to HCV Not Detec edd, does not exclu de the possi bilit y of expos ure to HCV. Not Available [facility] (Lab) [address], [place], [address], 10/11/2024 12:35:46 10/10/19 25 10/10/2024 HEPAT ITIS B CORE, IGM hepatitis B core IgM antibody Non-re active non-re active IgM anti- HBc not detec edd. Does not exclu de the possi bilit y of expos ure to or infec tion with HBV. Not Available [facility] (Lab) [address], [place], [address], 10/11/2024 12:35:47 10/10/19 25 10/10/2024 RPR SCREE N, REFLE X TITER /CONF IRMAT ION RPR screen Nonrea ctive nonrea ctive Not Available [facility] (Lab) [address], [place], [address], 10/11/2024 12:35:47 10/17/19 25 10/17/2024 CT/GC AND TRICH OMONA S VAGIN CORRIE (RRNA ), URINE chlamydia trachomatis, PCR Negati ve negati ve Not Available [facility] (Lab) [address], [place], [address], 10/18/2024 13:06:29 10/17/19 25 10/17/2024 CT/GC AND TRICH OMONA S VAGIN CORRIE (RRNA ), URINE neisseria gonorrhoeae, PCR Negati ve negati ve Not Available [facility] (Lab) [address], [place], [address], 10/18/2024 13:06:29 10/17/19 25 10/17/2024 CT/GC AND TRICH OMONA S VAGIN CORRIE (RRNA ), URINE trichomonas vaginalis ribosomal RNA (rrna) Negati ve negati ve Not Available [facility] (Lab) [address], [place], [address], 10/18/2024 13:06:29 07/18/20 25 07/18/2025 CBC W/DIF F WBC 8.6 10'3/ uL 3.5-[address] [facility] (Lab) [address], [place], [address], 07/23/2025 18:20:24 07/18/20 25 07/18/2025 CBC W/DIF F RBC 4.13 10'6/ uL (based on docume nted legal sex) 3.80-[address] [facility] (Lab) [address], [place], [address], 07/23/2025 18:20:24 07/18/20 25 07/18/2025 CBC W/DIF F HGB 12.1 g/dL (based on docume nted legal sex) 11.6-[address] [facility] (Lab) [address], [place], [address], 07/23/2025 18:20:24 07/18/20 25 07/18/2025 CBC W/DIF F HCT 38.4 % (based on docume nted legal sex) 34.0-[address] [facility] (Lab) [address], [place], [address], 07/23/2025 18:20:24 07/18/20 25 07/18/2025 CBC W/DIF F MCV 93.0 fL 80.0-[address] [facility] (Lab) [address], [place], [address], 07/23/2025 18:20:24 07/18/20 25 07/18/2025 CBC W/DIF F MCH 29.3 pg 27.0-[address] [facility] (Lab) [address], [place], [address], 07/23/2025 18:20:24 07/18/20 25 07/18/2025 CBC W/DIF F MCHC 31.5 g/dL 32.0-3 [address] [facility] (Lab) [address], [place], [address], 07/23/2025 18:20:24 07/18/20 25 07/18/2025 CBC W/DIF F RDW 13.7 % 11.0-[address] [facility] (Lab) [address], [place], [address], 07/23/2025 18:20:24 07/18/20 25 07/18/2025 CBC W/DIF F plt 360 10'3/ uL 150-[address] [facility] (Lab) [address], [place], [address], 07/23/2025 18:20:24 07/18/20 25 07/18/2025 CBC W/DIF F MPV 10.4 fL 8.8-[address] [facility] (Lab) [address], [place], [address], 07/23/2025 18:20:24 07/18/20 25 07/18/2025 CBC W/DIF F NRBC's 0.0 % 0.[address] [facility] (Lab) [address], [place], [address], 07/23/2025 18:20:24 07/18/20 25 07/18/2025 CBC W/DIF F absolute NRBCs 0.0 10'3/ uL no refere nce range establ ished Not Available [facility] (Lab) [address], [place], [address], 07/23/2025 18:20:24 07/18/20 25 07/18/2025 CBC W/DIF F neutrophils 61.8 % 34.0-[address] [facility] (Lab) [address], [place], [address], 07/23/2025 18:20:24 07/18/20 25 07/18/2025 CBC W/DIF F lymphocytes 31.7 % 15.0-[address] [facility] (Lab) [address] [facility], [place], [address], 07/23/2025 18:20:24 07/18/20 25 07/18/2025 CBC W/DIF F monocytes 5.2 % 1.0-[address] [facility] (Lab) [address], [place], [address], 07/23/2025 18:20:24 07/18/20 25 07/18/2025 CBC W/DIF F eosinophils 0.8 % 0.0-8. [address] [facility] (Lab) [address], [place], [address], 07/23/2025 18:20:24 07/18/20 25 07/18/2025 CBC W/DIF F basophils 0.2 % 0.0-2. [address] [facility] (Lab) [address], [place], [address], 07/23/2025 18:20:24 07/18/20 25 07/18/2025 CBC W/DIF [...] separ ately if prese nt. Not Available [facility] (Lab) [address], [place], [address], 07/23/2025 18:20:24 07/18/20 25 07/18/2025 CBC W/DIF F absolute neutrophils 5.3 10'3/ uL 1.5-8. [address] [facility] (Lab) [address], [place], [address], 07/23/2025 18:20:24 07/18/20 25 07/18/2025 CBC W/DIF F absolute lymphocytes 2.7 10'3/ uL 1.0-4. [address] [facility] (Lab) [address], [place], [address], 07/23/2025 18:20:24 07/18/20 25 07/18/2025 CBC W/DIF F absolute monocytes 0.5 10'3/ uL 0.2-1. [address] [facility] (Lab) [address], [place], [address], 07/23/2025 18:20:24 07/18/20 25 07/18/2025 CBC W/DIF F absolute eosinophils 0.1 10'3/ uL 0.0-0. [address] [facility] (Lab) [address], [place], [address], 07/23/2025 18:20:24 07/18/20 25 07/18/2025 CBC W/DIF F absolute basophils 0.0 10'3/ uL 0.0-0. [address] [facility] (Lab) [address], [place], [address], 07/23/2025 18:20:24 07/18/20 25 07/18/2025 CBC W/DIF F absolute immature granulocytes 0.0 10'3/ uL 0.00-0 .10 Refer ence range s for nonbi nary/ inter sex or unspe cifie d gende r patie nts have not been estab lishe d. Pleelijah e refer to the hemao wing table for range s estab lishe d for cisge nder patie nts and evalu ate in the clini simon warner xt of the indiv idual patie nt: https ://kate nicholson book. nm.or g/gen derx Not Available [facility] (Lab) [address], [place], [address], 07/23/2025 18:20:24 07/18/20 25 07/18/2025 CMP(C OMPRE HENSI VE METAB OLIC PANEL ) sodium 139 mmol/ L 133-[address] [facility] (Lab) [address], [place], [address], 07/23/2025 18:20:24 07/18/20 25 07/18/2025 CMP(C OMPRE HENSI VE METAB OLIC PANEL ) potassium 4.2 mmol/ L 3.5-5. [address] [facility] (Lab) [address], [place], [address], 07/23/2025 18:20:24 07/18/20 25 07/18/2025 CMP(C OMPRE HENSI VE METAB OLIC PANEL ) chloride 104 mmol/ L 98-[address] [facility] (Lab) [address], [place], [address], 07/23/2025 18:20:24 07/18/20 25 07/18/2025 CMP(C OMPRE HENSI VE METAB OLIC PANEL ) carbon dioxide 30 mmol/ L 21-[address] [facility] (Lab) [address], [place], [address], 07/23/2025 18:20:24 07/18/20 25 07/18/2025 CMP(C OMPRE HENSI VE METAB OLIC PANEL ) anion gap 5 mmol/ L 4-[address] [facility] (Lab) [address] [place], [address], 07/23/2025 18:20:24 07/18/20 25 07/18/2025 CMP(C OMPRE HENSI VE METAB OLIC PANEL ) blood urea nitrogen 16 mg/dL 7-25 Not Available [facility] (Lab) [address], [place], [address], 07/23/2025 18:20:24 07/18/20 25 07/18/2025 CMP(C OMPRE HENSI VE METAB OLIC PANEL ) creatinine 0.81 mg/dL 0.60-[address] [facility] (Lab) [address], [place], [address], 07/23/2025 18:20:24 07/18/20 25 07/18/2025 CMP(C OMPRE HENSI VE METAB OLIC PANEL ) egfrcr (CKD-epi 2020) >90 mL/mi n/1.7 3_m2 >=[address] [facility] (Lab) [address], [place], [address], 07/23/2025 18:20:24 07/18/20 25 07/18/2025 CMP(C OMPRE HENSI VE METAB OLIC PANEL ) calcium 9.7 mg/dL 8.3-[address] [facility] (Lab) [address], [place], [address], 07/23/2025 18:20:24 07/18/20 25 07/18/2025 CMP(C OMPRE HENSI VE METAB OLIC PANEL ) glucose 70 mg/dL 70-[address] [facility] (Lab) [address], [place], [address], 07/23/2025 18:20:24 07/18/20 25 07/18/2025 CMP(C OMPRE HENSI VE METAB OLIC PANEL ) protein, total 7.0 g/dL 6.4-8. [address] [facility] (Lab) [address], [place], [address], 07/23/2025 18:20:24 07/18/20 25 07/18/2025 CMP(C OMPRE HENSI VE METAB OLIC PANEL ) albumin 4.4 g/dL 3.5-5. [address] [facility] (Lab) [address] [facility], [place], [address], 07/23/2025 18:20:24 07/18/20 25 07/18/2025 CMP(C OMPRE HENSI VE METAB OLIC PANEL ) ALT 13 units /L 9-[address] [facility] (Lab) [address], [place], [address], 07/23/2025 18:20:24 07/18/20 25 07/18/2025 CMP(C OMPRE HENSI VE METAB OLIC PANEL ) alkaline phosphatase 61 units /L 34-[address] [facility] (Lab) [address], [place], [address], 07/23/2025 18:20:24 07/18/20 25 07/18/2025 CMP(C OMPRE HENSI VE METAB OLIC PANEL ) AST 14 units /L 13-[address] [facility] (Lab) [address], [place], [address], 07/23/2025 18:20:24 07/18/20 25 07/18/2025 CMP(C OMPRE HENSI VE METAB OLIC PANEL ) bilirubin, total 0.6 mg/dL 0.2-1. [address] [facility] (Lab) [address], [place], [address], 07/23/2025 18:20:24 07/18/20 25 07/18/2025 LIPID PANEL ,AMA (LDL- CALC) total cholesterol 201 mg/dL 0-199 high Not Available [facility] (Lab) [address] [place], [address], 07/23/2025 18:20:25 07/18/20 25 07/18/2025 LIPID PANEL ,AMA (LDL- CALC) triglyceride s 194 mg/dL 0-150 high NCEP Refer ence Value s for Trigl yceri andrae: Mary l: <150 mg/dL Borde rline High: 150 - 199 mg/dL High: 200 - 499 mg/dL Very High: >/= 500 mg/dL Not Available [facility] (Lab) [address] [place], [address], 07/23/2025 18:20:25 07/18/20 25 07/18/2025 LIPID PANEL ,AMA (LDL- CALC) HDL cholesterol 54 mg/dL >40 Not Available [facility] (Lab) [address] [place], [address], 07/23/2025 18:20:25 07/18/20 25 07/18/2025 LIPID PANEL [...] mg/dL , HDL <40 mg/dL Not Available [facility] (Lab) [address] [place], [address], 07/23/2025 18:20:25 07/18/20 25 07/18/2025 LIPID PANEL ,AMA (LDL- CALC) non-HDL cholesterol 147 mg/dL no refere nce range A reaso nable goal for non-H DL lucy stero l is one that is 30 mg/dL highe r than the LDL lucy stero l goal. Not Available [facility] (Lab) [address] [place], [address], 07/23/2025 18:20:25 07/18/20 25 07/18/2025 LIPID PANEL ,AMA (LDL- CALC) chol/HDL ratio 3.7 . 0.0-5. 0 On January 03, 2023, [facility] labor atori ludy joaquin ed the equat ion for calcu latin g estim ated low-d ensit y lipop rotei n-cho leste rol (LDL- C) from the Fried harshil equat ion to the Elham n/Elia mckeon equat ion. This new equat ion is only valid for lipid panel s with trigl yceri andrae < 400 mg/dL . Studi es have demon romel ed that this new equat ion [...] Rox fleming, Shoaib Delaney, Shoaib mcclain, [facility] , and Chris Brito . 2013. Comp ariso n of a Novel Metho d vs the Fried harshil Equat ion for Estim ating Low-D ensit y Lipop rotei n Lucy stero l Level s from the Stand gracie Lipid Profi arash. LOGAN: The Journ al of the Ameri can Medic al Assoc iatio n 310 (19): 2060- . - Janki hi V, Bhargavi J, Tila hi A, Leidy M, Francesca figueroa R, Hasmukh hi E, Maxi [facility]thon[facility] RS, Daryl SR, Elham rodriguez SS. Fast ing Versu s Nonfa sting and Low-D ensit y Lipop rotei n Lucy stero l Accur acy. Circu latio n. 2017Sep 12;137 (1):1 0-19. Not Available [facility] (Lab) [address] [place], [address], 07/23/2025 18:20:25 07/18/20 25 07/18/2025 TSH, REFLE X FREE T4 TSH 0.98 uIU/m L 0.30-[address] [facility] (Lab) [address] [place], [address], 07/23/2025 18:20:25 07/18/20 25 07/18/2025 VITAM IN D, 25-OH (TOTA L D2/D3 ) vitamin D, 25-hydroxy, total 20.1 NG/mL 30.0-1 00.0 low Sugge stive of Defic iency : <20 ng/mL Sugge stive of Insuf ficie ncy: 20-29 ng/mL Sugge stive of Suffi cienc y: 30-10 0 ng/mL Sugge stive of Toxic ity: >150 ng/mL Not Available [facility] (Lab) [address], [place], [address], 07/23/2025 18:20:26 07/18/20 25 07/18/2025 IMAGE GUIDE D PAP AND HPV REGAR DLESS image guided Pap, HPV regardless of Pap result SEE RESULT S BELOW CASE REPOR T: Cytol ogy Gynec ologi simon Repor t Case: [id number] Autho gagandeep ponce Provi arlin: David Smith MD Colle cted: [...] epith elial Alexey rodriguez or Maya jeter ([facility]) . 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 Not Available [facility] (Lab) [address], [place], [address], 07/23/2025 18:20:26 10/24/19 25 10/24/2024 US, trans vagin al No observ ation record ed. [email or web address] [place] [address], [place], [address], 10/24/2024 12:16:11 10/24/19 25 10/24/2024 US, trans vagin al No observ ation record ed. evelyn Tami [address], [place], [address], 10/28/2024 13:43:48 07/29/20 25 07/29/2025 US, trans vagin al No observ ation record ed. [email or web address] [place] [address], [place], [address], 07/29/2025 18:25:33 07/29/20 25 07/29/2025 US, trans vagin al No observ ation record ed. [email or web address] Tami [address], [place], [address], 07/30/2025 22:54:00 Result Notes None recorded. Problems Name Problem SNOMED Code Status Onset Date Resolution Date Notes Provider Name and Address Organization Details Recorded Time Primigra john [id number] Completed 201011/03/2020 Supervis ion of normal first pregnanc y;Practi ce ID: 0001 Rizwana busch [facility] 17:26:55 anatomy study Completed 201011/03/2020 [facility];Jose coon ID: 0001 Rizwana busch [facility] 17:25:51 Glucose toleranc e test during pregnanc y - baby not yet delivere d outside referenc e range [id number] Completed 201011/03/2020 Gestatat ional Diabetes Antepart um;Pract ice ID: 0001 Rizwana busch [facility] 17:18:54 Maternal care for diminish ed movement s Completed 201011/03/2020 Decrease d movement s, affectin g manageme nt of mother, antepart um conditio n or complica tion;Pra ctice ID: 0001 Rizwana busch, [facility] 17:26:40 Delivery normal [id number] Completed 201011/03/2020 Normal delivery ;Practic e ID: 0001 Rizwana busch, [facility] 17:25:38 Single live from singleto n pregnanc y [id number] Completed 201011/03/2020 Mother with single liveborn ;Practic e ID: 0001 Rizwana Diallo [facility], [facility] 17:27:03 Postpart um care Completed 201011/03/2020 Routine postpart follow-u p;Record ed Elsewher e: No Locat ion: [facility] S ource: EHR Medical Secretary chiquita: N Rach ce ID: [id number] Benson lable Time: 04:00:00 PM Rizwana Diallo [facility] 17:26:46 Insertio n of intraute rine contrace ptive device Completed 201011/03/2020 INSERTIO N OF IUD;Jm rded Elsewher e: No Locat ion: [facility] S ource: EHR Medical Secretary chiquita: N Rach ce ID: [id number] Benson lable Time: 10:30:00 AM Rizwana busch, [facility] 17:26:32 Uses IUD (intraut erine device) contrace ption [id number] Completed 201111/03/2020 Surveill ance of intraute rine contrace ptive device;R ecorded Elsewher e: No Locat ion: [facility] S ource: EHR Medical Secretary chiquita: N Leoti ce ID: 0001 Benson lable Time: 04:00:00 PM Rizwana Diallo [facility] 02/23/202 1 17:26:34 Hernia of abdomina l cavity [id number] Completed 201111/03/2020 Hernia of other specifie d sites without mention of obstruct ion or gangrene ;Recorde d Elsewher e: No Locat ion: [facility] S ource: EHR Medical Secretary chiquita: Pushpa Loyd ce ID: 0001 Benson lable Time: 08:30:00 [facility] 17:26:24 Removal of intraute rine device Completed 201211/03/2020 REMOVAL OF IUD;Jm rded Elsewher e: No Locat ion: [facility] S ource: EHR Medical Secretary chiquita: Pushpa Loyd ce ID: 0001 Benson lable Time: 08:30:00 AM Rizwana Diallo [facility] 17:26:58 Dysfunct ional uterine bleeding Completed 201211/03/2020 Other disorder s of menstrua tion and other abnormal bleeding from female genital tract;Re corded Elsewher e: No Locat ion: [facility] S ource: EHR Medical Secretary chiquita: Pushpa Loyd ce ID: 0001 Benson lable Time: 08:30:00 AM Rizwana busch, [facility] 17:25:41 Female genital organ symptoms [id number] Completed 201211/03/2020 Unspecif ied symptom associat ed with female genital organs;R ecorded Elsewher e: No Locat ion: [facility] S ource: EHR Medical Secretary chiquita: Pushpa Loyd ce ID: 0001 Benson lable Time: 08:15:00 AM [facility] 1 17:25:49 Family planning surveill ance Completed 201311/03/2020 Surveill ance of other contrace ptive method;R ecorded Elsewher e: No Locat ion: [facility] S ource: EHR Medical Secretary chiquita: N Practi ce ID: 0001 Benson lable Time: 10:00:00 AM Rizwana busch [facility] 17:25:48 Educatio n Completed 201311/03/2020 Other general counseli ng and advice on contrace ptive manageme nt;Recor ded Elsewher e: No Locat ion: [facility] S ource: EHR Medical Secretary chiquita: Y Practi ce ID: 0001 Benson lable Time: 10:00:00 AM Rizwana busch, [facility] 17:25:46 Speciali zed medical examinat ion Completed 201411/03/2020 ROUTINE ENROLLMENT COUNSELOR EXAMINAT ION;Jm rded Elsewher e: No Locat ion: [facility] S ource: EHR Medical Secretary chiquita: N Leoti ce ID: 0001 Benson lable Time: 08:45:00 AM Rizwana busch, [facility] 17:27:13 Obesity [id number] Completed 201411/03/2020 Obesity; Recorded Elsewher e: No Locat ion: [facility] S ource: EHR Medical Secretary chiquita: N Practi ce ID: 0001 Benson lable Time: 08:45:00 AM Rizwana busch [facility] 17:26:43 Cytologi c finding Completed 201411/03/2020 Papanico laou smear of cervix with low grade squamous intraepi thelial lesion (LGSIL); Recorded Elsewher e: No Locat ion: [facility] S ource: EHR Medical Secretary chiquita: N Practi ce ID: 0001 Benson lable Time: 11:00:00 AM Rizwana busch [facility] 17:25:36 Finding of regulari ty of menstrua l cycle Completed 201411/03/2020 Irregula r bleeding ;Recorde d Elsewher e: No [facility] E[facility] Medical Secretary chiquita: N Leoti ce ID: [id number] Benson lable Time: 10:45:00 AM Rizwana busch [facility] 17:25:54 Low grade squamous intraepi thelial lesion on cervical Papanico laou smear [id number] Completed 201411/03/2020 LGSIL on pap smear of cervix;R ecorded Elsewher e: No Locat ion: [facility] S ource: EHR Medical Secretary chiquita: N Leoti ce ID: [id number] Benson lable Time: 10:45:00 AM Rizwana busch [facility] 17:26:39 Infectio n screenin g Completed 201511/03/2020 Encounte r for screenin g for oth infec/pa rastc diseases ;Recorde d Elsewher e: No Locat ion: [facility] S ource: EHR Medical Secretary chiquita: N Leoti ce ID: [id number] Benson lable Time: 11:30:00 AM Rizwana busch [facility] 17:26:31 Syphilis test finding [id number] Completed 201511/03/2020 Encntr screen for infectio ns w sexl mode of transmis s;Record ed Elsewher e: No Locat ion: [facility] S ource: EHR Medical Secretary chiquita: N Leoti ce ID: [id number] Benson lable Time: 11:30:00 AM Rizwana busch [facility] 17:27:15 Gestatio n less than 9 weeks [id number] Completed 201511/03/2020 Less than 8 weeks gestatio n of pregnanc y;Record ed Elsewher e: No [facility] S ource: EHR Medical Secretary chiquita: N Practi ce ID: [id number] Benson lable Time: 11:30:00 AM Rizwana busch, [facility] 17:25:55 Secondar y amenorrh ea [id number] Completed 201511/03/2020 Secondar y amenorrh ea;Recor ded Elsewher e: No Locat ion: [facility] S ource: EHR Medical Secretary chiquita: N Leoti ce ID: 0001 Benson lable Time: 11:30:00 AM Rizwana busch, [facility] 17:27:02 Gestatio n period, 13 weeks [id number] Completed 201511/03/2020 13 weeks gestatio n of pregnanc y;Record ed Elsewher e: No Locat ion: [facility] S ource: EHR Medical Secretary chiquita: N Leoti ce ID: 0001 Benson lable Time: 09:15:00 AM Rizwana busch, [facility] 17:25:57 Uterine size for dates discrepa ncy Completed 201511/03/2020 Uterine size-ruben e discrepa ncy, first trimeste r;Record ed Elsewher e: No Locat ion: [facility] S ource: EHR Medical Secretary chiquita: N Leoti ce ID: 0001 Benson lable Time: 09:15:00 AM Rizwana busch, [facility] 17:27:19 Pregnanc y, childbir th and puerperi um finding Completed 201511/03/2020 Encounte r for supervis ion of normal 1st pregnanc y, 2nd trimeste r;Record ed Elsewher e: No Locat ion: [facility] S ource: EHR Medical Secretary chiquita: N Leoti ce ID: 0001 Benson lable Time: 09:30:00 AM Rizwana busch, [facility] 17:26:[address] Concept Completed 201511/03/2020 Decrease d movement s, second trimeste r, unsp;Rec orded Elsewher e: No Locat ion: John figueroa [facility] S ource: EHR Medical Secretary chiquita: N Practi ce ID: 0001 Benson lable Time: 11:15:00 AM Rizwana busch, [facility] 17:27:06 Gestatio n period, 20 weeks [id number] Completed 201511/03/2020 20 weeks gestatio n of pregnanc y;Record ed Elsewher e: No Locat ion: [facility] S ource: EHR Medical Secretary chiquita: N Practi ce ID: 0001 Benson lable Time: 11:15:00 AM Rizwana busch, [facility] 17:26:[address] Concept Completed 201511/03/2020 Decrease d movement s, second trimeste r, fetus 1;Record ed Elsewher e: No Locat ion: Karime carolina [facility] S ource: EHR Medical Secretary chiquita: N Practi ce ID: 0001 Benson lable Time: 10:45:00 AM Rizwana busch, [facility] 17:27:07 prematur e rupture of membrane s [id number] Completed 201511/03/2020 Pretrm edgardo ROM, unsp time betw rupt and onset labr, 2nd tri;Prac damaris ID: 0001 Rizwana busch, [facility] 17:26:54 Gestatio n period, 19 weeks [id number] Completed 201511/03/2020 19 weeks gestatio n of pregnanc y;Practi ce ID: 0001 Rizwana busch, [facility] 17:25:59 heart finding Completed 201511/03/2020 Abnlt in heart rate and rhythm comp labor and delivery ;Recorde d Elsewher e: No Locat ion: John figueroa [facility] S ource: EHR Medical Secretary chiquita: N Practi ce ID: 0001 Benson lable Time: 08:59:24 AM Rizwana busch, [facility] 17:25:53 Gestatio n period, 36 weeks [id number] Completed 201511/03/2020 36 weeks gestatio n of pregnanc y;Record ed Elsewher e: No Locat ion: Karime carolina [facility] S ource: EHR Medical Secretary chiquita: N Practi ce ID: 0001 Benson lable Time: 10:30:00 AM Rizwana busch, [facility] 17:26:17 Finding of trunk structur e Completed 201511/03/2020 Oth diseases and conditio ns compl preg/chl dbrth;Re corded Elsewher e: No [facility] Medical Secretary chiquita: N Leoti ce ID: 0001 Benson lable Time: 10:30:00 AM Rizwana busch, [facility] 17:27:18 Normal pregnanc y in multigra john [id number] Completed 201511/03/2020 Encounte r for suprvsn of normal pregnanc y, third trimeste r;Record ed Elsewher e: No Locat ion: Karime carolina [facility] S ource: EHR Medical Secretary chiquita: N Practi ce ID: 0001 Benson lable Time: 08:45:00 AM Rizwana busch [facility] 17:26:[address] Concept Completed 201511/03/2020 Decrease d movement s, third trimeste r, unsp;Rec orded Elsewher e: No [facility] S ource: EHR Medical Secretary chiquita: N Practi ce ID: 0001 Benson lable Time: 09:52:00 AM Rizwana busch [facility] 17:27:09 Term pregnanc y delivere d [id number] Completed 201511/03/2020 Encounte r for full-ter m uncompli cated delivery ;Practic e ID: 0001 Rizwana busch, [facility] 17:27:16 Gestatio n period, 39 weeks [id number] Completed 201511/03/2020 39 weeks gestatio n of pregnanc y;Practi ce ID: 0001 Rizwana busch, [facility] 17:26:21 Lochia finding Completed 201611/03/2020 Encounte r for routine postpart um follow-u p;Record ed Elsewher e: No Locat ion: [facility] S ource: EHR Medical Secretary chiquita: N Practi ce ID: 0001 Benson lable Time: 03:15:00 PM Rizwana busch, [facility] 17:26:36 Puerpera l endometr itis [id number] Completed 201611/03/2020 Endometr itis postpart um;Recor ded Elsewher e: No Locat ion: [facility] S ource: EHR Medical Secretary chiquita: N Practi ce ID: 0001 Benson lable Time: 03:15:00 PM Rizwana busch, [facility] 17:26:56 Low risk human papillom avirus deoxyrib onucleic acid detected in specimen from cervix [id number] Completed 201611/03/2020 Cervical low risk HPV DNA test positive ;Recorde d Elsewher e: No Locat ion: [facility] S ource: EHR Medical Secretary chiquita: N Practi ce ID: 0001 Benson lable Time: 02:00:00 PM Rizwana busch, [facility] 17:26:28 Human papillom avirus deoxyrib onucleic acid detected , high risk on cervical specimen [id number] Completed 201611/03/2020 Cervical high risk HPV DNA test positive ;Recorde d Elsewher e: No Locat ion: [facility] S ource: EHR Medical Secretary chiquita: N Rach ce ID: 0001 Benson lable Time: 02:39:48 PM Rizwana busch, [facility] 17:26:26 Atypical squamous cells of undeterm ined signific ance on cervical Papanico laou smear [id number] Completed 201611/03/2020 Atyp squam cell of undet signfc cyto smr crvx (ASC-US) ;Recorde d Elsewher e: No Locat ion: [facility] S ource: EHR Medical Secretary chiquita: N Rach ce ID: 0001 Benson lable Time: 10:30:00 AM Rizwana [facility], [facility] 17:25:27 Screenin g for malignan t neoplasm of cervix Completed 201611/03/2020 Screenin g for malignan t neoplasm s of the cervix;R ecorded Elsewher e: No Locat ion: [facility] S ource: EHR Medical Secretary chiquita: Pushpa Loyd ce ID: 0001 Benson lable Time: 05:30:00 PM Rizwana [facility] 17:27:[address] Concept Completed 201611/03/2020 Anxiety disorder , unspecif ied;Jm rded Elsewher e: No Locat ion: [facility] S ource: EHR Medical Secretary chiquita: Pushpa Baileyti ce ID: 0001 Benson lable Time: 05:30:00 PM Rizwana busch [facility] 17:27:05 Body mass index 30+ - obesity [id number] Completed 201611/03/2020 Body mass index (BMI) 32.0-32. 9, adult;Re corded Elsewher e: No Locat ion: John figueroa [facility] S ource: EHR Medical Secretary chiquita: N Practi ce ID: 0001 Benson lable Time: 05:30:00 PM Rizwana busch [facility] 17:25:29 Amenorrh ea [id number] Completed 201711/03/2020 Amenorrh ea;Recor ded Elsewher e: No Locat ion: [facility] S ource: EHR Medical Secretary chiquita: N Practi ce ID: 0001 Benson lable Time: 05:00:00 PM Rizwana busch [facility] 17:18:[address] Concept Completed 201711/03/2020 Encntr for subeditor exam (general ) (routine ) w/o abn findings ;Recorde d Elsewher e: No Locat ion: [facility] S ource: EHR Medical Secretary chiquita: N Leoti ce ID: 0001 Benson lable Time: 05:00:00 PM Rizwana busch, [facility] 17:27:12 Pregnanc y detectio n examinat ion Completed 201711/03/2020 Encounte r for pregnanc y test, result positive ;Recorde d Elsewher e: No Locat ion: [facility] S ource: EHR Medical Secretary chiquita: N Practi ce ID: 0001 Benson lable Time: 05:00:00 PM Rizwana busch, [facility] 17:26:49 Antenata l screenin g Completed 201711/03/2020 Encounte r for antenata l screenin g for nuchal transluc ency;Rec orded Elsewher e: No [facility]: EHR Medical Secretary chiquita: N Practi ce ID: 0001 Benson lable Time: 05:15:00 PM Rizwana busch [facility] 17:18:59 Antenata l screenin g for malforma tion Completed 201711/03/2020 Encounte r for antenata l screenin g for malforma tions;Re corded Elsewher e: No Locat ion: [facility] S ource: EHR Medical Secretary chiquita: N Practi ce ID: 0001 Benson lable Time: 03:00:00 [facility]:25:26 Past pregnanc y history of gestatio nal diabetes mellitus [id number] Completed 201711/03/2020 Personal history of gestatio formerly [facility] diabetes ;Recorde d Elsewher e: No Locat ion: [facility] S ource: EHR Medical Secretary chiquita: N Practi ce ID: 0001 Benson lable Time: 11:45:00 AM Rizwana Diallo [facility] 17:26:25 Pelvic and perineal pain [id number] Completed 201711/03/2020 Pelvic and perineal pain;Rec orded Elsewher e: No Locat ion: [facility] S ource: EHR Medical Secretary chiquita: N Practi ce ID: 0001 Benson lable Time: 11:45:00 AM Rizwana busch [facility] 17:26:45 Blood leukocyt e number above referenc e range [id number] Completed 201711/03/2020 Elevated white blood cell count, unspecif ied;Jm rded Elsewher e: No Locat ion: [facility] S ource: EHR Medical Secretary chiquita: N Practi ce ID: 0001 Benson lable Time: 01:00:00 PM Rizwana busch [facility] 17:26:29 Gestatio n period, 30 weeks [id number] Completed 201711/03/2020 30 weeks gestatio n of pregnanc y;Practi ce ID: 0001 Rizwana busch, [facility] 17:26:[address] Concept Completed 201711/03/2020 Matern care for abnlt fetl hrt rate or rhym, 3rd tri, unsp;Rec orded Elsewher e: No Locat ion: [facility] S ource: EHR Medical Secretary chiquita: N Practi ce ID: 0001 Benson lable Time: 04:15:00 PM Rizwana busch, [facility] 17:27:10 Gestatio n period, 32 weeks [id number] Completed 201711/03/2020 32 weeks gestatio n of pregnanc y;Record ed Elsewher e: No Locat ion: [facility] S ource: EHR Medical Secretary chiquita: N Practi ce ID: 0001 Benson lable Time: 09:15:00 AM Rizwana busch, [facility] 17:26:03 Gestatio n period, 33 weeks [id number] Completed 201711/03/2020 33 weeks gestatio n of pregnanc y;Record ed Elsewher e: No Locat ion: [facility] S ource: EHR Medical Secretary chiquita: N Practi ce ID: 0001 Benson lable Time: 09:30:00 AM Rizwana busch, [facility] 17:26:05 Gestatio nal diabetes mellitus [id number] Completed 201711/03/2020 Gestatio nal diabetes mellitus in pregnanc y, diet controll ed;Recor ded Elsewher e: No Locat ion: [facility] S ource: EHR Medical Secretary chiquita: N Practi ce ID: 0001 Benson lable Time: 03:00:00 PM Rizwana busch [facility] 17:26:23 Gestatio n period, 34 weeks [id number] Completed 201711/03/2020 34 weeks gestatio n of pregnanc y;Record ed Elsewher e: No Locat ion: John figueroa [facility] S ource: EHR Medical Secretary chiquita: N Practi ce ID: 0001 Benson lable Time: 03:30:00 PM Rizwana busch, [facility] 17:26:06 Uterine size for dates discrepa ncy Completed 201711/03/2020 Uterine size-ruben e discrepa ncy, third trimeste r;Record ed Elsewher e: No Locat ion: John figueroa [facility] S ource: EHR Medical Secretary chiquita: N Practi ce ID: 0001 Benson lable Time: 03:30:00 PM Rizwana Diallo null, [facility] 17:27:20 Gestatio n period, 35 weeks [id number] Completed 201711/03/2020 35 weeks gestatio n of pregnanc y;Record ed Elsewher e: No Locat ion: John figueroa [facility] S ource: EHR Medical Secretary chiquita: N Practi ce ID: 0001 Benson lable Time: 03:00:00 PM Rizwana busch, [facility] 17:26:08 Gestatio n period, 37 weeks [id number] Completed 201711/03/2020 37 weeks gestatio n of pregnanc y;Record ed Elsewher e: No Locat ion: John figueroa [facility] S ource: EHR Medical Secretary chiquita: N Practi ce ID: 0001 Benson lable Time: 01:00:00 PM Rizwana Diallo null, [facility] 17:26:19 Gestatio n period, 38 weeks [id number] Completed 201711/03/2020 38 weeks gestatio n of pregnanc y;Record ed Elsewher e: No Locat ion: John figueroa [facility] S ource: EHR Medical Secretary chiquita: N Practi ce ID: 0001 Benson lable Time: 11:00:00 AM Rizwana Hillman null, [facility] 17:26:20 Low back pain [id number] Completed 201711/03/2020 Low back pain;Rec orded Elsewher e: No [facility]: EHR Medical Secretary chiquita: N Practi ce ID: 0001 Benson lable Time: 11:00:00 AM Rizwana busch, [facility] 17:26:37 Precipit ate labor [id number] Completed 201711/03/2020 Precipit ate labor;Pr actice ID: 0001 Rizwana [facility], [facility] 17:26:48 Procedur e by method Completed 201711/03/2020 Encounte r for other general counseli ng and advice on contrace ption;Re corded Elsewher e: No Locat ion: [facility] S ource: EHR Medical Secretary chiquita: N Practi ce ID: 0001 Benson lable Time: 10:15:00 AM Rizwana busch [facility] 17:25:44 Pregnanc y test negative [id number] Completed 201711/03/2020 Encounte r for pregnanc y test, result negative ;Recorde d Elsewher e: No [facility]: EHR Medical Secretary chiquita: N Practi ce ID: 0001 Benson lable Time: 09:45:00 AM Rizwana busch [facility] 17:26:51 Clinical finding Completed 201711/03/2020 Presence of (intraut erine) contrace ptive device;R ecorded Elsewher e: No [facility]: EHR Medical Secretary chiquita: N Practi ce ID: 0001 Benson lable Time: 09:45:00 AM [facility] 17:25:32 Contrace ptive sheath status [id number] Completed 201811/03/2020 Encounte r for routine checking of IUD;Jm rded Elsewher e: No Locat ion: [facility] car[place] [facility] S ource: EHR Medical Secretary chiquita: Pushpa Loyd ce ID: 0001 Benson lable Time: 01:00:00 PM Rizwana busch [facility] 17:25:33 Disorder of intraute rine contrace ptive device Completed 201811/03/2020 [facility] compl of intraute rine contrace ptive device, init encntr;R ecorded Elsewher e: No Locat ion: [facility] S ource: EHR Medical Secretary chiquita: Pushpa Loyd ce ID: 0001 Benson lable Time: 03:00:00 PM Rizwana Diallo [facility] 17:25:39 Micturit ion finding Completed 201811/03/2020 Urinary incontin ence;Rec orded Elsewher e: No Locat ion: [facility] S ource: EHR Medical Secretary chiquita: Pushpa Loyd ce ID: 0001 Benson lable Time: 01:45:00 PM Rizwana busch [facility] 17:25:30 Acute vaginiti s [id number] Completed 201811/03/2020 Vaginiti s;Record ed Elsewher e: No Locat ion: [facility] S ource: EHR Medical Secretary chiquita: Pushpa Baileyti ce ID: 0001 Benson lable Time: 01:30:00 PM Rizwana Diallo [facility] 17:18:56 Dysuria [id number] Completed 201811/03/2020 Dysuria; Recorded Elsewher e: No Locat ion: [facility] S ource: EHR Medical Secretary chiquita: Pushpa Loyd ce ID: 0001 Benson lable Time: 11:30:00 AM Rizwana busch, [facility] 17:25:43 Cyst of vulva [id number] Completed 201811/03/2020 Vulvar cyst;Rec orded Elsewher e: No Locat ion: John [facility] S ource: EHR Medical Secretary chiquita: N Rach ce ID: 0001 Benson lable Time: 11:30:00 AM Rizwana busch, [facility] 17:25:35 Problem Notes None recorded. Procedures Surgical History Date Name Laterality Status Provider Name and Address Organization Details Recorded Time 01/10/20 25 donor nephrectomy completed Ruby Patel [facility] 07/18/2025 12:53:37 05/15/20 24 IUD Removal completed Mert Smith MD [address], [place], [address], [facility] 05/15/2024 23:20:44 01/11/20 24 Date of Last Pap Smear completed Alia Pitts [facility] 05/15/2024 16:34:32 03/23/20 23 IUD Insertion completed Ashley Castillo [facility]- [address], [place], [address], [facility] 03/23/2023 18:21:55 02/25/20 21 IUD Removal completed Ashley Castillo [facility]- [address], [place], [address], [facility] 02/24/2021 17:33:49 12/16/19 17 Colposcopy completed Marita Jones [facility] 11/23/2020 14:40:16 09/11/19 17 liposuction of subcutaneous tissue completed Marita Jones [facility] 11/23/2020 14:41:35 09/11/19 12 repair of umbilical hernia completed [facility] 11/23/2020 14:41:01 09/11/19 09 Tonsillectomy completed [facility] 11/23/2020 14:40:43 Imaging Results None recorded. Procedure Notes None recorded. Medical Equipment None Reported. Allergies No known drug allergies Medications Name Sig Start Date Stop Date Status Note LastModified by Organization Details LastModified Time cyclobenz aprine 10 mg tablet take 1 tablet by oral route every 12 hours 12/18 completed Prescrib ed Elsewher e: No Locat ion: [facility] odify By: jared kilpatrick DateTime : 05/07/20 [...] Not Available Not Available Not Available Necon 1/35 (28) 1 mg-35 mcg tablet take 1 tablet by oral route every day for 28 days 09/07 completed Prescrib ed Elsewher e: No Locat ion: [facility] odify By: ivonne kilpatrick DateTime : 08/11/20 [...] check BS QID 12/18 completed Prescrib ed Elsewher e: No Locat ion: [facility] odify By: jared Figueroa ncounter DateTime : 03/19/20 03:49:18 PM Not Available Not Available Not [...] Prescrib ed Elsewher e: Yes Loca tion: [facility] odify By: sylwia duarte DateTime : 07/04/20 13 08:30:00 AM Not Available Not Available Not Available Ortho Tri-Cycle n (28) 0.18 mg(7)/0.2 15mg(7)/0 .25 mg(7)-0.0 35 mg tablet TAKE ONE TABLET BY MOUTH ONCE DAILY 03/05 completed Prescrib ed Elsewher e: No Locat ion: [facility] odify By: ritu kilpatrick DateTime : 02/05/20 [...] completed Not Available Not Available Not Available Theresayunior-Nuria uo DHA 29 mg-1 mg-400 mg oral pack take 2 by Oral route once for 30 days 03/31 completed Prescrib ed Elsewher e: No Locat ion: [facility] odify By: ivonne kilpatrick DateTime : 03/02/20 16 11:30:00 AM Not Available Not Available Not Available Prenate Elite 26 mg iron-1 mg tablet take 1 by Oral route every day for 1 day 02/04 completed Prescrib ed Elsewher e: No Locat ion: [facility] odify By: sylwia duarte DateTime : 12/18/19 14 10:00:00 AM Not Available Not Available Not Available BATTER MIXER-PNV-DH A 28 mg iron-1 mg-200 mg capsule take 1 capsule by oral route every day 11/03 completed Prescrib ed Elsewher e: No Locat ion: [facility] odify By: kendrick chi DateTime : 02/28/20 19 11:23:16 AM Not Available Not Available Not [...] Updated DateTime 10/17/2024 156.21 cm 30.3 kg/m2 67023.56 g 117/74 mm[Hg] TAZ Sargent [facility] 10/17/2024 10:27:59 Date Recorded Body height Body mass index (BMI) Body weight Systolic And Diastolic Provider Name and Address Organization Details Last Updated DateTime 10/28/2024 156.21 cm 30.5 kg/m2 41374.15 g 118/76 mm[Hg] Alia Pitts [facility] 10/28/2024 12:28:23 Date Recorded Body height Body mass index (BMI) Body weight Systolic And Diastolic Provider Name and Address Organization Details Last Updated DateTime 07/18/2025 156.21 cm 31.2 kg/m2 15693.52 g 111/77 mm[Hg] Ruby Amanda [facility] 07/18/2025 12:51:39 Social History Question Answer Notes LastModified by Organizat ion Details LastModified Time Tobacco Smoking Status Never Smoker [facility] 11/18/2021 11:20:13 Do You Have An [...] Or The Highest Degree You Have Received? [id number] Information not available 11/18/2021 Are There Any [...] anxious, or unable to sleep at night)? [id number] Information not available 11/18/2021 Family History Relationship [...] ICD10 Code Diagnosis IMO Codes Diagnosis Note [id number] [facility] [address] [address] 08/12/2020 12:17:37 08/12/2020 13:12:59 Gynecologic examination [id number] Z01.419 Take Calcium with Vitamin D 1200mg [...] No issues or questions BC: mirena IUD [id number] Samantha Ramos CNM [place] [address],[place] [address] 11/04/2020 12:19:16 11/06/2020 15:31:33 Postcoital bleeding 28834786 N93.0 Postcoital bleeding x 3 months. No pain. Pelvic u/s and follow up scheduled. [id number] Mert Smith MD [place] [address],[place] [address] 11/23/2020 16:33:55 11/23/2020 17:17:32 Postcoital bleeding 12037951 N93.0 [id number] Mert Smith MD [place] [address],[place] [address] 11/23/2020 16:34:11 11/24/2020 17:59:17 Ectropion of cervix 38570707 N86 patient was observed to have a significan t cervical ectropion. Patient reports also , after being asked , about mucousy vaginal discharge. talked about treatment for postcoital bleeding and mucus vaginal discharge associated with ectropion. She is going to consider her treatment options. [id number] [facility] [address],[place] [address] 12/08/2020 09:18:41 12/09/2020 10:16:52 Sexually transmitted infectious disease 1019390 A64 Will contact with results. Time spent in visit is a total of 15 mins with at least 50% of visit consisting of counseling and review of plan of care. Additional precaution aneesh measures were taken to minimize potential exposure to the Covid-19 virus during this patient s visit, including available hand director of construction upon arrive, temperatur e check and being asked a series of screening questions. All staff wore face coverings during this encounter, as well as provided additional cleaning and sanitizing of all surfaces, including countertop s, pens, chairs, door handles, light switches, etc, prior to and following the patient s visit. [id number] [facility] [address] [address] 02/24/2021 17:00:06 2021 15:31:00 Pain in pelvis 78126375 R10.2 IUD misplaced on exam today.IUD pulled.Hermila mg instantly felt better and able to sit [...] patient satisfacti on. Contracept ion care management [id number] Z30.9 Wants other form Discussed all control options in great detail. [...] she is doing. Removal of intrauterine device [id number] Z30.432 She states the symptoms are of [...] ing of all the above instructio ns. [id number] Ashley Castillo [facility] [address],[facility] [place] [address] 03/26/2021 16:32:57 03/29/2021 17:36:01 Contraception care management 146903192 Z30.9 Patient is here today for a medicaton check of control. She voices goals of therapy have been met with use of this therapy. She denies neg side effects. She is eating, drinking, sleeping well; moods are stable & periods are well regulated. Wishes to continue this method of BC. Appropriat e to continue this medication . Rx sent Genital he rpes simplex 80244633 A60.9 Reviewed [facility] HSV informatio n.[facility] handout given.We agreed on Suppressio n therapy which she feels she would like to pursue.Saqib l do 6mos & then we will f/u and decide if d/c. [id number] [facility] [address],[facility] [place] [address] 11/18/2021 10:16:38 11/18/2021 11:45:08 Gynecologic examination [id number] Z01.419 Take Calcium with Vitamin D 1200mg [...] screening No issues or questions BC: Skylar azul FE--having some BTB on this method. We discussed trial of Nextstelli s x 3mos f/u med check.Gett ing a momalvin make over this summer 2021. 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 [id number] Ashley Castillo [facility] [address],[place] [address] 10/25/2022 12:05:14 10/25/2022 13:34:01 Gynecologic examination 51943036 Z01.419 Take Calcium with Vitamin D 1200mg [...] or questions Sexually t ransmitted infectious disease 6516487 [facility]64 [facility] 703356188 Z30.9 Happy on OCPRF sent x 1yr [id number] Ashley Castillo , [facility] [address] [address] 03/23/2023 17:48:49 03/24/2023 16:05:13 Insertion of intrauterine contraceptive device 88694161 Z30.430 She has been counseled on all [...] 2012 5006 Z13.9 Contracept ion care management 542231111 Z30.9 Discussed all control options and pt [...] of care including time spent on procedure. [id number] ANTOINETTE Roberto [place] [address] [address] 01/11/2024 11:57:47 01/11/2024 13:56:14 Pain in pelvis 88331369 R10.2 This patient is a 28 -year-old [...] y with nausea, vomiting, fever, chills. Vaginitis 70017634 N76.0 exam today wnlnormal appearing IUD stringsgc/ ct/trich testing sentvagini tis panel senturine cx sentrx sent for BV - r/b/a reviewedpe lvic u/s orderedpre cautions reviewed Time spent in visit is a total of 30 mins with at least 50% of visit consisting of counseling and review of plan of care. Venereal d isease screening 980367587 Z11.3 [id number] Mert Smith MD [place] [address],[place] [address] 01/18/2024 10:54:54 01/18/2024 11:38:42 Pain in pelvis 24689132 R10.2 [id number] ANTOINETTE Roberto [place] [address],[place] [address] 01/23/2024 11:18:03 01/23/2024 11:42:45 Pain in pelvis 01315734 R10.2 Reviewed updated pelvic u/s - wnlshe is currently asymptomat icquestion s answeredde sires to continue with kyleena IUDRTC for WWE or sooner if needed Time spent in visit is a total of 20 mins with at least 50% of visit consisting of counseling and review of plan of care. [id number] ANTOINETTE Roberto [place] [address],[place] [address] 04/04/2024 10:47:32 04/04/2024 12:11:59 Vaginitis 11951881 N76.0 vaginitis panel sentgc/ct/ trich testing sentHIV/He [...] plan of care. Venereal d isease screening 959480097 Z11.3 Sexually t ransmitted infectious disease 4104194 A64 Genital he rpes simplex 17076790 A60.9 [id number] Mert Smith MD [place] [address],[place] [address] 05/15/2024 16:16:32 05/16/2024 10:52:21 Vulvovaginitis 23463887 N76.0 Contracept ion care management 318183924 Z30.9 IUD was removed without complicati ons. [...] d disease. Sexually t ransmitted infectious disease 3717139 A64 [id number] Mert Smith MD [place] [address],[place] [address] 07/09/2024 12:17:58 07/09/2024 12:39:27 Vaginal odor 374733407 N89.8 [id number] Ashley Sierra KARL [place] [address],[place] [address] 10/10/2024 10:59:52 10/10/2024 14:23:22 Vaginitis 50264127 N76.0 vaginitis/ STI panel sentrx sent for BV - r/b/a reviewedvu lvar care guidelines discusseds afe sexual practices discussed Time spent in visit is a total of 20 mins with at least 50% of visit consisting of counseling and review of plan of care. Venereal d isease screening 479713267 Z11.3 Sexually t ransmitted infectious disease 3091594 A64 [id number] ANTOINETTE Roberto [place] [address],[place] [address] 10/17/2024 10:07:45 10/17/2024 11:35:52 Venereal disease screening 639996694 Z11.3 Postcoital bleeding 4888 0000 N93.0 gc/ct/tric h testing sentsafe sexual practices discussedv ulvar care guidelines discussedw ill update pelvic u/s for postcoital bleedingRT C for u/s f/u Time spent in visit is a total of 25 mins with at least 50% of visit consisting of counseling and review of plan of care. Contracept ion care management 050127390 Z30.9 [id number] Mert Smith MD [place] [address],[place] [address] 10/24/2024 10:39:14 10/24/2024 11:26:06 Abnormal uterine bleeding 6984628482 9100 N93.9 N93.0 [id number] Mert Smith MD [place] [address],[place] [address] 10/28/2024 12:10:58 10/28/2024 13:02:07 Abnormal uterine bleeding 5957523490 9100 N93.9 N93.0 this patient is a [...] 20 minutes on her care in total. [id number] Mert Smith MD [place] [address],[place] [address] 07/18/2025 12:43:37 07/18/2025 13:20:24 Pain in female genitalia on intercourse 08073654 N94.10 [id number] Abnormal u terine bleeding 3859479220 9100 N93.9 N93.0 Genital he rpes simplex 49558954 A60.00 Well woman health examination 732377398 Z01.419 [id number] Annual gynecologi simon exam performed. Patient will [...] pelvic ultrasound and follow-up Gynecologi c examination 12472083 Z01.419 Venereal d isease screening 839749770 Z11.3 018449 [id number] Mert Smith MD [place] [address] [address] 07/29/2025 12:49:15 07/29/2025 13:12:56 Pain in pelvis 97345413 R10.20 N81.4 [id number] Health Concerns Section Related Observation LastModified by Organization Detai ls LastModified Time None Recorded Concern Status LastModified by Organization Details LastModified Time None Recorded Advance Directives Directive N: Payers Insurance Date Sequence Insurance Name Policy Number Policy Wagoner Covered Member ID Wagoner Member ID Guarantor Name 08/01/2025 1 [facility] (MEDICAID HMO) [id number] Lashae Meza [id number] Callum Meza Notes Date Note Type Note Provider Name and Address Organization Details Recorded Time 10/17/19 25 text/htm l Vaginal/Vulvar ProblemReported by Patient 29yohere today for STI testingwas seen in office 10/10/24 for vaginitis symptoms. Sample collected at that visit could not process d/t lab error. She was treated for BV at that visit, symptoms have resolved.Denies itching/discharge/odorsHas been experiencing postcoital bleeding for 3 yrsOn OCP for BC neg pelvic painneg n/v/fneg flu-like symptoms ANTOINETTE Roberto [address], [place], [address], [facility] 10/17/2024 11:32:19 10/28/19 25 text/htm l this patient is a 29-year-old female with [...] her care in total. Mert Smith MD [address], [place], [address], [facility] 10/28/2024 13:00:44 07/18/20 25 text/htm l Annual GYNReported by PatientHistoryFor history, patient reportsno [...] self breast examinationandencourage regular exercise. Ruby busch, [facility] 07/18/2025 13:12:48 OBGyn Episode Ob Episode Information Episode Created Date Number of Fetuses Patient Bloodtype Patient rh Status Prepregnancy Weight lbs Domestic Partner Domestic Partner Phone Father Name Correctional Lieutenant Status 11/24/19 21 1 CLOSED Fetus Data [...] Domestic Partner Domestic Partner Phone Father Name Correctional Lieutenant Status 11/24/19 21 1 CLOSED Fetus Data [...] Domestic Partner Domestic Partner Phone Father Name Correctional Lieutenant Status 11/24/19 21 1 CLOSED Fetus Data [...]
--- OUTSIDE RECORDS SUMMARY | 2025-08-10 12:50 | XMS_ITS | Clinical Summary ---
Author Organization [facility] Address [address] [place] [address] Care Team Providers Care Creping Machine Operator Name Role Phone Erika Shaw PA-C Primary Care Provider [phone] Source Comments [facility],non-owned Affiliates and Associated Physician Practices is amultiple site organization consisting of ambulatory clinics and hospital sitesin [place], [place], [place] and [place]. This disclosure is being madepursuant to the Care Everywhere program and may not contain all information available regarding this patient. Last updated 18.[facility] Allergies No known active allergies Medications * Be aware that medications may not be up to date on this document. Alwaysverify current medications with the patient. Lo Loestrin Fe 1 MG-10 MCG / 10 MCG tablet 04/16/20 22 Active acetaminophen (Tylenol) 325 MG tablet Take 2 (two) tablets by mouth every 6 hours Maximum allowable Acetaminophen amount = 4 Grams (4000 mg) / 24 hours. 02/01/20 25 Active lidocaine (Lidoderm) 5 % patch Apply 2 (two) patches to skin once daily Apply patch to most painful area and remove after 12 hours. May reapply a new patch 12 hours later. 60 patch 01/31/2025 11:00 AM CDT 02/01/20 25 025 Discontin ued(Tx Complete) polyethylene glycol 3350 (Miralax) 17 GM/SCOOP powder Take 17 (seventeen) g by mouth 2 times daily 1020 g 01/31/2025 11:00 AM CDT 02/01/20 025 Discontin ued(Tx Complete) sennosides (Senokot) 8.6 MG tablet Take 1 (one) tablet by mouth once daily 30 tablet 01/31/2025 11:00 AM CDT 02/01/20 025 Discontin ued(Tx Complete) cyclobenzaprin e (Flexeril) 10 MG tablet Take 1 (one) tablet by mouth 3 times daily as needed for Muscle Spasms 90 tablet 01/31/2025 11:00 AM CDT 02/01/20 025 Discontin ued(Tx Complete) hydrOXYzine HCl (Atarax) 10 MG tablet Take 1 (one) tablet by mouth 3 times daily as needed for Itching 90 tablet 01/31/2025 11:00 AM CDT 02/01/20 025 Discontin ued(Tx Complete) docusate sodium (Colace) 100 MG capsule Take 1 (one) capsule by mouth once daily 30 capsule 02/07/20 Discontin ued(Tx Complete) Active Problems Problem Noted Date Diagnosed Date [...] Glucose Tolerance): 140-199 mg/dL A1c WNL -> Fur Drummer evaluation complete, counseled on continued weight control/loss [...] kidney. > Dictated by Araseli Feliciano MD (Tubing Machine Tender) 10/08/2024 12:24 PM 132 ml/min 133 ml/min/ [...] Labs Component Name 01/21/25 1345 10/10/24 1230 [id number] - <224* VOLUMETIMDUR - 3,200 3,200 3,200 [...] report was drafted by Hossein Garcia MD (vice president business development) I, Ghulam Pitts MD have personally reviewed [...] Labs Component Name 01/21/25 1319 10/08/24 1311 [id number] Negative Negative Acceptable QUANT Gold Recent Labs [...] age Pap 10/25/2022 Cytology Gynecological Report Case: [id number] Authorizing Provider: Ashley Castillo, Collected: 10/25/2022 1315 CARDIAC TECHNICIAN Ordering Location: [place] Pathology Received: 10/26/2022 1118 First Screen: Rochelle [...] report was drafted by Ana Mo MD (vice president business development) 10/08/2024 9:27 AM. ILeta MD have personally reviewed and interpreted this [...] Canchola RN Complete 10/08/2024 Living Donor Consent Trey, RN Complete ESRD Risk Prediction Genetic screen (APOL1, [...] cholecystitis due to biliary calculus 07/04/2022 07/06/2022 Encounters Date Type Department Care Team Description 07/28/2025 2:20 PM RADIOSONDE OPERATOR - 07/28/2025 11:59 PM RADIOSONDE OPERATOR Hospital Encounter [facility] [address] [place] [address] Discharge Disposition: Home or Self Care 07/28/2025 2:00 PM RADIOSONDE OPERATOR Office Visit [facility]phrology [address] [facility] [place] [address] Unknown, Provider Rabia Zimmerman MD Donor, kidney (Primary Dx) 07/28/2025 Travel from Last 3 Months Immunizations Immunization Administration Dates Next Due DTP, HISTORIC VACCINE 08/23/1994, 993,1993,05/03 DTaP VACCINE IM (6wk-6yrs) 03/21/1997 HEP B VACCINE, PED/ADOL 1993,1993, HIB VACCINE 08/23/1994,199 3,1993,05/03 Human Papilloma Virus Bivalent Vaccine 7 Human Papilloma Virus Carmencita valent Vaccine 11/06/2013,09/18/2012,08/14/2012,04/04,01/31/2007 INFLUENZA VACCINE 09/07/2005 INFLUENZA VACCINE, QUADR. (A FLURIA, FLUZONE QUADRIVALENT; 6MO+) (IIV4) 07/19/2016 MENINGOCOCCAL ACWY (MCV4P) VAC IM 01/31/2007 MMR VACCINE 05/14/2018,03/21/1997,04/13/1994 PNEUMOCOCCAL PCV7 CONJ, PEDS 09/26/2000,09/22/19 01 POLIO OPV 03/21/1997, 4,1993,05/03 TDAP (7yrs+) 08/03/2016 TDAP, HISTORIC VACCINE 03/30/2018,01/31/2007 VARICELLA 01/31/2007,03/21/1997 Family History Medical History Relation Name Comments Renal Disease Cousin Amanda Meza ADPKD + cysts [employer] spots Daughter Katie Vitilog, improved wi th treatment Renal Disease Maternal Aunt Arleen Andre ADPKD Cancer - Breast Maternal Grandmother Millicent Cancer - Colon Maternal Grandmother Millicent Renal Disease Maternal Uncle 1 Shyam Andre ADPKD Renal Disease Maternal Uncle 2 Abraham [...] and heating? Not hard at all 01/29/2025 [facility] [place] [facility] Occupat ional Health - Occupational Stress [...] any time in the past [facility], were you homeless or living in a alf (including now)? No 01/29/2025 Comments No Sex and Gender Information Value Date Recorded Sex Assigned at Female 10/13/2024 11:25 AM RADIOSONDE OPERATOR Legal Sex Female 10:52 AM RADIOSONDE OPERATOR Gender Identity Female 10/13/2024 11:25 AM RADIOSONDE OPERATOR Sexual Orientation Not on file Last Filed Vital Signs Vital Sign Reading Time Taken Comments Blood Pressure 114/77 07/28/2025 3:38 PM RADIOSONDE OPERATOR Pulse 54 07/28/2025 3:38 PM RADIOSONDE OPERATOR Temperature 36.7 C (98 F) 07/28/2025 3:38 PM RADIOSONDE OPERATOR Respiratory Rate 18 07/28/2025 3:38 PM RADIOSONDE OPERATOR Oxygen Saturation 100% 07/28/2025 3:38 PM RADIOSONDE OPERATOR Inhaled Oxygen Concentration 21% 01/29/2025 3 :35 PM CDT Weight 77.1 kg (170 lb) 07/28/2025 3:38 PM RADIOSONDE OPERATOR Height 157.5 cm (5' 2) 07/28/2025 3:38 PM RADIOSONDE OPERATOR Body Mass Index 31.09 07/28/2025 3:38 PM RADIOSONDE OPERATOR Plan of Treatment Upcoming Encounters Date Type Department Care Team (Late st Contact Info) Description 12/26/2025 8:30 AM CDT Office Visit [facility] - [facility] [place] [address] Rabia Zimmerman MD [facility] [facility] [address] [place] [address] Health Maintenance Due Date Last Done Comments PAP with HPV 2023 DEPRESSION SCREENING 09/11/2024 COVID-19 VACCINE ( season) 2025 08/09/2022, 08/11/2021, 12/10/2020, Additional history exists INFLUENZA VACCINE (#1) 2025 , 07/19/2016, 09/07/2005 DTAP/TDAP/TD VACCINES (9 - Td or Tdap) 03/30/2028 03/30/2018, 08/03/2016, 01/31/2007, Additional history exists Cervical Cancer Screening 07/18/2028 PAP SMEAR 07/18/2028 07/18/2025, 03/2025, 10/25/2022 ZOSTER VACCINE (1 of 2) 2043 HEPATITIS [...] Procedure Name Priority Date/Time Associated Diagnosis Comments MICROALB/CREAT RATIO URINE RANDOM PANEL Routine 07/28/2025 2:35 PM RADIOSONDE OPERATOR Donor, kidney URINALYSIS W/MICROSCOPIC NO CULTURE Routine 07/28/2025 2:35 PM RADIOSONDE OPERATOR Donor, kidney RENAL FUNCTION PANEL Routine 07/28/2025 2:35 PM RADIOSONDE OPERATOR Donor, kidney CBC W AUTO DIFFERENTIAL Routine 07/28/2025 2:35 PM RADIOSONDE OPERATOR Donor, kidney HEPATITIS C AB SCREEN RFLX NAAT QUANT STAT 01/21/2025 1:19 PM CDT Willing to be kidney donor from Last 3 Months or Most Recently Relevant to Health Maintenance Results * URINALYSIS W/MICROSCOPIC NO CULTURE (07/28/2025 2:35 PM RADIOSONDE OPERATOR) Color UA Yellow Yellow, Straw 07/28/2025 3:29 PM [facility] Clarity UA Clear Clear 07/28/2025 3:29 PM [facility] Glucose UA Normal Normal 07/28/2025 3:29 PM [facility] Bilirubin UA Negative Negative 07/28/2025 3:29 PM [facility] Ketone UA Negative Negative 07/28/2025 3:29 PM [facility] Specific [place] UA 1.025 1.005 - 1.030 07/28/2025 3:29 PM [facility] Blood UA Negative Negative 07/28/2025 3:29 PM [facility] pH UA 6.0 5.0 - 8.0 07/28/2025 3:29 PM [facility] Protein UA Negative Negative 07/28/2025 3:29 PM [facility] Urobilinogen UA Normal Normal mg/dL 025 3:29 PM [facility] Nitrite UA Negative Negative 07/28/2025 3:29 PM [facility] Leukocyte Esterase UA Negative Negative 07/28/2025 3:29 PM [facility] RBC UA 3-5 0 - 5 # /hpf 07/28/2025 3:29 PM [facility] WBC UA 0-5 0 - 5 # /hpf 07/28/2025 3:29 PM [facility] Bacteria UA None Seen None Seen 07/28/2025 3:29 PM [facility] Squamous Epithelial Cells 0-2 0 - 5 /hpf 07/28/2025 3:29 PM [facility] Urine URINE SPECIMEN OBTAINED BY CLEAN CATCH PROCEDURE / Unknown Collection / Unknown 07/28/2025 2:35 PM RADIOSONDE OPERATOR 07/28/2025 3:22 PM RADIOSONDE OPERATOR us Rabia Zimmerman MD LAB - URINALYSIS ORDERABLES Fi nal Result Performing Organization Address City/[facility]/ZIP Co de Phone Number [address] [address], [email or web address] [phone] * MICROALB/CREAT RATIO URINE RANDOM PANEL (07/28/2025 2:35 PM RADIOSONDE OPERATOR) Albumin Random Urine 5.6 Not Established ug/mL 07/28/2025 3:58 PM [facility] Creatinine Urine 149.94 Not Established mg/dL 07/28/2025 3:58 PM [facility] Urine Albumin/Creati nine Ratio 4 <30 mg/g 07/28/2025 3:58 PM [facility] Urine URINE SPECIMEN OBTAINED BY CLEAN CATCH PROCEDURE / Unknown Collection / Unknown 07/28/2025 2:35 PM RADIOSONDE OPERATOR 07/28/2025 3:27 PM RADIOSONDE OPERATOR us Rabia Zimmerman MD LAB - URINE CHEMISTRY ORDERABL ES Final Result [address] [address], [place] [phone] * (ABNORMAL) CBC WITH DIFFERENTIAL (07/28/2025 2:35 PM RADIOSONDE OPERATOR) WBC 5.7 4.0 - 10.7 x10E9/L 07/28/2025 3:30 PM [facility] RBC Count 3.76(L) 3.90 - 5.20 x10E12/L 07/28/2025 3:30 PM [facility] Hemoglobin 11.3(L) 11.9 - 15.8 g/dL 07/28/2025 3:30 PM [facility] Hematocrit 34.1(L) 34.8 - 46.1 % 07/28/2025 3:30 PM [facility] MCV 90.7 80.0 - 98.0 fL 07/28/2025 3:30 PM [facility] MCH 30.1 26.7 - 33.6 pg 07/28/2025 3:30 PM [facility] MCHC 33.1 31.7 - 36.3 g/dL 07/28/2025 3:30 PM [facility] RDW-CV 13.9 11.3 - 14.8 % 07/28/2025 3:30 PM [facility] Platelet Count 233 150 - 420 x10E9/L 07/28/2025 3:30 PM [facility] MPV 10.3 7.8 - 11.4 fL 07/28/2025 3:30 PM [facility] Neutrophil % 57.4 41.0 - 74.0 % 07/28/2025 3:30 PM [facility] Lymphocyte % 34.7 17.0 - 47.0 % 07/28/2025 3:30 PM [facility] Monocyte % 5.7 3.0 - 11.0 % 07/28/2025 3:30 PM [facility] Eosinophil % 1.6 0.0 - 7.0 % 07/28/2025 3:30 PM [facility] Basophil % 0.2 0.0 - 1.6 % 07/28/2025 3:30 PM [facility] Immature Granulocytes % 0.4 0.0 - 1.0 % 07/28/2025 3:30 PM [facility] Neutrophil Absolute 3.25 1.60 - 7.50 x10E9/L 07/28/2025 3:30 PM [facility] Lymphocyte Absolute 1.96 1.00 - 4.40 x10E9/L 07/28/2025 3:30 PM [facility] Monocyte Absolute 0.32 0.15 - 1.00 x10E9/L 07/28/2025 3:30 PM [facility] Eosinophil Absolute 0.09 0.00 - 0.60 x10E9/L 07/28/2025 3:30 PM [facility] Basophil Absolute 0.01 0.00 - 0.13 x10E9/L 07/28/2025 3:30 PM [facility] Blood BLOOD SPECIMEN / Unknown Lab Venipuncture / Unknown 07/28/2025 2:35 PM RADIOSONDE OPERATOR 07/28/2025 3:26 PM RADIOSONDE OPERATOR us Rabia Zimmerman MD LAB - HEMATOLOGY ORDERABLES Fi nal Result [facility] [address] [place] [address], [facility] [phone] * (ABNORMAL) RENAL FUNCTION PANEL (07/28/2025 2:35 PM RADIOSONDE OPERATOR) BUN 15 7 - 26 mg/dL 07/28/2025 3:57 PM [facility] Creatinine 0.80 0.56 - 0.96 mg/dL 07/28/2025 3:57 PM [facility] Sodium 142 136 - 145 mmol/L 07/28/2025 3:57 PM [facility] Potassium 3.7 3.5 - 4.5 mmol/L 07/28/2025 3:57 PM [facility] Chloride 112(H) 98 - 107 mmol/L 07/28/2025 3:57 PM [facility] CO2 26 22 - 29 mmol/L 07/28/2025 3:57 PM [facility] Glucose 103(H) 70 - 99 mg/dL 07/28/2025 3:57 PM [facility] Albumin 3.9 3.4 - 5.0 g/dL 07/28/2025 3:57 PM [facility] Calcium 9.0 8.4 - 10.2 mg/dL 07/28/2025 3:57 PM [facility] Phosphorus 2.3(L) 2.9 - 5.1 mg/dL 07/28/2025 3:57 PM [facility] Anion Gap 4(L) 6 - 16 07/28/2025 3:57 PM [facility] BUN/Creatinine Ratio 19 7 - 23 07/28/2025 3:57 PM RADIOSONDE OPERATOR [facility] Osmolality Calculated 295 275 - 295 mOsm/kg 07/28/2025 3:57 PM [facility] eGFR by CKD-EPI >90 >=90 mL/min/1.7 3 m2 07/28/2025 3:57 PM [facility] Comment:Estimated Glomerular Filtration Rate (eGFR) calculated using the CKD-EPI Creatinine Equation (2020), per the National Kidney Foundation and [place] [employer]ph[employer] recommendations. Blood BLOOD SPECIMEN / Unknown Lab Venipuncture / Unknown 07/28/2025 2:35 PM RADIOSONDE OPERATOR 07/28/2025 3:25 PM RADIOSONDE OPERATOR Rabia Zimmerman MD LAB - CHEMISTRY ORDERABLES Fin al Result Performing Organization Address [facility]/ZIP Co de Phone Number [facility] [address] [place] [address], [place] [phone] * HEPATITIS C AB SCREEN RFLX NAAT QUANT (01/21/2025 1:19 PM CDT) Hepatitis C Antibody Non-react candy Non-reac tive 01/21/2025 2:27 PM CDT [facility] Comment:Hepatitis C Antibody screen indicates no serologic [...] LAB - CHEMISTRY ORDERA BLES Final Result Performing Organization Address City/[facility]/ZIP Co de Phone Number [facility] [address] [place] [address], [place] [phone] from Last 3 Months or Most Recently Relevant to Health Maintenance Insurance LIVING DONOR LIVING DONOR * Guarantor: BUBBA ANDRE Account Type Relation to Patient Date of Phone Billing Address Personal/Family Transplant Recipient 1995 Advance Directives * Full Code (Latest Code Status on File) Date Activated Date Inactivated Comments 07/04/2022 2:44 AM 07/06/2022 3:22 PM Care Teams Creping Machine Operator Relationship Specialty Start Date End Date Erika Shaw PA-C [address] [place] [phone] PCP - General Physician Jet Engine Mechanic 02/11/25
--- OUTSIDE RECORDS SUMMARY | 2025-08-10 12:50 | XMS_ITS | Data Portability ---
Author Organization [place] [facility], Main Office Address [address] [place] [address] Assessment Encounter Date Assessment Date Assessment LastModified by Organization Details LastModified Time 10/31/2023 10/31/2023 Patient came to office with pain to rectum and bleeding hemorrhoids. We will proceed to take patient to OR for Hemorrhoidectomy . Procedure explained, risks include pain, bleeding, infection, incontinence, patient voiced understanding and wishes to proceed. [email or web address] Not available 10/31/2023 18:03:46 Plan of Treatment Reminders Order Date Submit Date Provider Last Modified By Organization Details Last Modified Time Details Appointments None recorded. Lab CBC w/ auto diff 2023 024 [facility] (Lab), [address] [place], [address], 4 08:54:50 prothrombin time 2023 024 [facility] (Lab), [address] [place], [address], 4 08:54:50 PTT (partial thromboplas tin time) mixing study 2023 024 [facility] (Lab), [address] [place], [address], 4 08:54:50 test, serum or plasma 2023 024 [facility] (Lab), [address] [place], [address], 4 08:54:50 BMP, serum or plasma 2023 024 alor [facility] (Lab), [address] [place], [address], 4 08:54:50 lipid panel, serum [address] (Lab), [address] [place], [address], 4 08:47:28 TSH, serum or plasma [address] (Lab), [address] [place], [address], 4 08:46:45 glycohemogl obin, total, blood [address] (Lab), [address] [place], [address], 4 08:47:07 CMP, serum or plasma [address] (Lab), [address] [place], [address], 4 08:47:17 CBC [address] (Lab), [address] [place], [address], 4 08:46:57 PPD (purified protein derivative) , skin test 2023 024 [facility] [address], [place], [address], 4 14:34:18 Referral None recorded. Procedures upper endoscopy procedure (EGD) (PROC) - *Please call pt to schedule* 2023 024 [email or web address] [address] nava MD, [address] [facility] [address], [place], [address], 4 08:58:45 Surgeries None recorded. Imaging MAMMO, screening, digital, bilateral - *Please call pt to schedule* 2023 [email or web address] [place] [address] (Imaging), [address] [facility] [address], [place], [address], 4 10:29:26 electrocard iogram 2023 024 [email or web address] [facility] [address], [place], [address], 4 14:09:58 XR, chest, 2 view 2023 024 [facility] (Imaging), [address] [facility] [address], [place], [address], 4 14:38:35 Medication Orders phentermine 37.5 mg tablet [address] [facility], [address] [place], [address], 4 08:38:43 Tubersol 5 tub. unit/0.1 mL intradermal injection solution 2023 024 [email or web address] Not available 4 15:33:01 omeprazole 40 mg capsule,del ayed release [address] [facility], [address] [place], [address], 4 14:57:11 Patient TargetsNo targets recorded. Patient InstructionsNo instructions recorded. Reason for Referral None Reported. Results Created Date Observation Date Name Description Value Unit Range Abnormal Flag Note LastModifiedBy Organization Detail LastModifiedTime 06/04/02/13/2024 PPD (byron fied prote in deriv ative ), skin test TB negati ve Not Available [address], [place], [address], 02/07/2024 14:22:38 02/13/20 24 02/13/2024 PPD (byron fied prote in deriv ative ), skin test TB negati ve Not Available [address], [place], [address], 02/07/2024 14:22:38 02/08/20 24 02/08/2024 XR, chest , 2 view No observ ation record ed. [address], [place], [address], 03/22/2024 12:56:51 02/08/20 24 02/08/2024 XR, chest , 2 view No observ ation record ed. [address], [place], [address], 03/22/2024 12:56:51 05/16/20 24 elect timothy dickey am No observ ation record ed. [address], [place], [address], 05/16/2024 12:49:18 06/19/20 24 06/18/2024 MAMMO , scree jaylan, digit al, bilat eral No observ ation record ed. [address], [place], [address], 06/25/2024 13:36:28 Result Notes None recorded. Problems Name Problem SNOMED Code Status Onset Date Resolution Date Notes Provider Name and Address Organization Details Recorded Time Tobacco user 461416137 Active Not Available [facility] 3 09:28:58 Amenorrhea 36704045 Active Not Available [facility] 3 09:28:58 Family history of Polycystic kidney 772193637 Active Not Available [facility] 3 09:28:58 Acute situational disturbance 483347910 Active Not Available [facility] 3 09:28:58 Steatotic liver disease 717274263 Active Not Available [facility] 3 09:28:58 Abdominal pain 06334554 Active Not Available [facility] 3 09:28:58 Overweight 844262007 Active Not Available [facility] 3 09:28:58 Headache 17208765 Active Not Available [facility] 3 09:28:59 Umbilical hernia 622939611 Active Not Available [facility] 3 09:28:59 Obesity 424514068 Active Not Available [facility] 3 09:28:59 Eczema 60163603 Active Not Available [facility] 3 09:28:59 Cough 98438671 Active Not Available [facility] 3 09:28:59 Carpal tunnel syndrome 67695976 Active Not Available [facility] 3 09:28:59 Otitis media 21233407 Active Not Available [facility] 3 09:28:59 Conjunctiviti s 6220763 Active Not Available [facility] 3 09:28:59 Dysuria 85555832 Active 2022 CLAIRE Pretty [address], [address], [place], [address] , [facility] 3 17:48:11 Overactive urinary bladder 842650706 Active 2022 RADHA Chamberlain [address], [address], [place], [address] , [employer] [facility] 3 15:20:59 Bacterial conjunctiviti s 864142604 Active 2023 RADHA Chamberlain [address], [address], [place], [address] , [facility] 4 11:20:07 Pain in throat 263555427 Active 2023 Livia Shin MD [address], [address], [place], [address] , [facility] [employer] [facility] 4 15:18:44 Hemorrhoids 77674897 Active 2023 Livia Shin MD [address] [address], [place], [address] , [facility] [employer] [facility] 4 16:51:25 Gastroesophag eal reflux disease 140760803 Active 2023 ANGEL Seay [address], [address] [place] [address] , [facility] [employer] [facility] 14:34:30 Problem Notes None recorded. Procedures Surgical History Date Name Laterality Status Provider Name and Address Organization Details Recorded Time cholecystectomy completed RADHA Chamberlain [address] [address], [place], [place], [address] [place] [address], [facility] [employer] [facility] 11/22/2022 14:24:28 Imaging Results None recorded. Procedure Notes None recorded. Medical Equipment None Reported. Allergies No known drug allergies Medications Name Sig Start Date Stop Date Status Note LastModified by Organization Details LastModified Time cyclobenz aprine 10 mg tablet TAKE 1 TABLET BY MOUTH THREE TIMES DAILY NEEDED 07/08 completed Not Available Not Available Not Available amoxicill in 500 mg capsule TAKE 2 CAPSULES BY MOUTH EVERY 12 HOURS active Not Available Not Available No t Available Mirena 21 mcg/24 hr (up to 8 years) 52 mg intrauter ine device 07/29 completed Not Available Not Available Not Available oxybutyni n chloride ER 10 mg tablet,ex tended release 24 hr TAKE 1 TABLET BY MOUTH ONCE DAILY 02/06 completed Not Available Not Available Not Available ibuprofen 800 mg tablet TAKE ONE TABLET BY MOUTH EVERY 8 HOURS NEEDED FOR PAIN DO NOT EXCEED 3 TABLETS IN A 24 HOUR PERIOD 07/17 completed Not Available Not Available Not Available ofloxacin 0.3 % eye drops INSTILL 1 TO 2 DROPS INTO AFFECTED EYE(S) EVERY 2 TO 4 HOURS FOR 2 DAYS AND THEN 1 TO 2 DROPS 4 TIMES DAILY FOR 4 DAYS 02/06 completed Not Available Not Available Not Available fluconazo le 150 mg tablet TAKE ONE TABLET BY MOUTH A ONE-TIME DOSE, MAY REPEAT IN 72 HOURS IF NEEDED. 05/22 completed Not Available Not Available Not Available clarithro mycin 500 mg tablet TAKE 1 TABLET BY MOUTH EVERY 12 HOURS active Not Available Not Available No t Available tolterodi ne ER 4 mg capsule,e xtended release 24 hr 11/22 completed Not Available Not Available Not Available hydrocodo ne 5 mg-acetam inophen 325 mg tablet Take 1 tablet every 6 hours by oral route as needed. 07/08 completed Not Available Not Available Not Available ondansetr on HCl 8 mg tablet TAKE ONE TABLET BY MOUTH EVERY 8 HOURS NEEDED FOR NAUSEA 07/17 completed Not Available Not Available Not Available fluconazo le 200 mg tablet 07/08 completed Not Available Not Available Not Available hydroquin one 4 % topical cream APPLY CREAM TOPICALL Y TO AFFECTED AREA TWICE DAILY 07/08 completed Not Available Not Available Not Available metronida zole 0.75 % (37.5 mg/5 gram) vaginal gel INSERT 1 APPLICAT ORFUL VAGINALL Y ONCE DAILY FOR 5 DAYS 05/22 completed Not Available Not Available Not Available ondansetr on HCl 4 mg tablet Take 2 tablets twice a day by oral route for 2 days. 01/04 completed Not Available Not Available Not Available prednison e 20 mg tablet Take 2 tablets every day by oral route for 5 days. 11/22 completed Not Available Not Available Not Available Tubersol 5 tub. unit/0.1 mL intraderm al injection solution Take 0.1 mL by intrader mal route. 05/22 completed Not Available Not Available Not Available Zithromax Z-Yevgeniy 250 mg tablet TAKE 2 TABLETS (500 MG) BY ORAL ROUTE ONCE DAILY FOR 1 DAY THEN 1 TABLET (250 MG) BY ORAL ROUTE ONCE DAILY FOR 4 DAYS 11/22 completed Not Available Not Available Not Available metronida zole 500 mg tablet TAKE 1 TABLET BY MOUTH TWICE DAILY FOR 7 DAYS 05/22 completed Not Available Not Available Not Available phentermi ne 37.5 mg tablet Take 1 tablet by mouth once daily active Not Available Not Available No t Available acetamino phen 300 mg-codein e 30 mg tablet TAKE ONE TO TWO TABLETS EVERY 4 - 6 HOURS NEEDED FOR PAIN 07/17 completed Not Available Not Available Not Available valacyclo vir 500 mg tablet TAKE 1 TABLET BY MOUTH ONCE DAILY active Not Available Not Available No t Available ciproflox acin 500 mg tablet TAKE 1 TABLET BY MOUTH EVERY 12 HOURS FOR 5 DAYS 07/08 completed Not Available Not Available Not Available sulfameth oxazole 800 mg-trimet hoprim 160 mg tablet TAKE 1 TABLET BY MOUTH EVERY 12 HOURS 07/08 completed Not Available Not Available Not Available omeprazol e 40 mg capsule,d elayed release TAKE 1 CAPSULE BY MOUTH TWICE DAILY active Not Available Not Available No t Available acetamino phen 500 mg tablet TAKE 2 TABLETS BY MOUTH THREE TIMES DAILY NEEDED FOR PAIN 11/22 completed Not Available Not Available Not Available triamcino lone acetonide 0.1 % topical cream APPLY A THIN LAYER TO THE AFFECTED AREA(S) BY TOPICAL ROUTE 2 TIMES PER DAY 11/22 completed Not Available Not Available Not Available ketorolac 30 mg/mL (1 mL) injection solution Inject 1 mL by intramus cular route. 11/22 completed Not Available Not Available Not Available amoxicill in 875 mg tablet Take 1 tablet every 12 hours by oral route for 7 days. 08/20 completed Not Available Not Available Not Available dicyclomi ne 20 mg tablet 11/22 completed Not Available Not Available Not Available cephalexi n 500 mg capsule Take 1 capsule every 12 hours by oral route for 7 days. 07/08 completed Not Available Not Available Not Available oseltamiv ir 75 mg capsule TK 1 C PO BID 01/04 completed Not Available Not Available Not Available neomycin- polymyxin -dexameth 3.5 mg/mL-10, 000 unit/mL-0 .1% eye drops INSTILL 1 DROP INTO AFFECTED EYE(S) EVERY 3 TO 4 HOURS FOR 7 DAYS 02/06 completed Not Available Not Available Not Available triamcino lone acetonide 0.1 % topical ointment Apply 1 applicat ion twice a day by topical route as needed. 02/21 completed Not Available Not Available Not Available clotrimaz ole-betam ethasone 1 %-0.05 % topical cream APPLY CREAM TOPICALL Y TO AFFECTED AREA TWICE DAILY IN THE MORNING AND IN THE EVENING FOR 2 WEEKS active Not Available Not Available No t Available prednison e 50 mg tablet 11/22 completed Not Available Not Available Not Available triamcino lone acetonide 0.025 % topical ointment APPLY A THIN LAYER TO THE AFFECTED AREA(S) BY TOPICAL ROUTE 2 TIMES PER DAY 02/16 completed Not Available Not Available Not Available Polytrim 10,000 unit-1 mg/mL eye drops Instill 2 drops every 6 hours by ophthalm ic route for 7 days. 01/02 completed Not Available Not Available Not Available docusate sodium 100 mg capsule 11/22 completed Not Available Not Available Not Available oxybutyni n chloride ER 5 mg tablet,ex tended release 24 hr Take 1 tablet every day by oral route. 02/06 completed Not Available Not Available Not Available hydroquin one 2 % topical cream APPLY TO THE AFFECTED AREA(S) BY TOPICAL ROUTE 2 TIMES PER DAY 07/08 completed Not Available Not Available Not Available diclofena c sodium 75 mg tablet,de layed release Take 1 tablet twice a day by oral route. 01/04 completed GENARIC FOR VOLTAREN Not Available Not Available Not Available cephalexi n 500 mg tablet TAKE ONE TABLET BY MOUTH TWICE A DAY 07/17 completed Not Available Not Available Not Available codeine 10 mg-guaife nesin 100 mg/5 mL oral liquid Take 10 mL every 4 hours by oral route as directed for 5 days. 02/21 completed Not Available Not Available Not Available mupirocin 2 % topical ointment 07/08 completed Not Available Not Available Not Available ibuprofen 600 mg tablet 11/22 completed Not Available Not Available Not Available polyethyl florence glycol 3350 17 gram/dose oral powder 11/22 completed Not Available Not Available Not Available oxybutyni n chloride 5 mg tablet Take 1 tablet 3 times a day by oral route. 02/06 completed Not Available Not Available Not Available ondansetr on 4 mg disintegr ating tablet 11/22 completed Not Available Not Available Not Available fluticaso ne propionat e 50 mcg/actua tion nasal spray,smith pension SHAKE LIQUID AND USE 2 SPRAYS IN EACH NOSTRIL DAILY 11/22 completed Not Available Not Available Not Available clotrimaz ole 1 % topical cream 05/22 completed Not Available Not Available Not Available phentermi ne 37.5 mg capsule TAKE ONE CAPSULE BY MOUTH EVERY DAY 02/16 completed Not Available Not Available Not Available naproxen 500 mg tablet Take 1 tablet twice a day by oral route as needed for 30 days. 11/22 completed Not Available Not Available Not Available Vistaril 50 mg capsule 1-2 tabs po q6 hours prn stress 02/16 completed Not Available Not Available Not Available amoxicill in 875 mg-potass ium clavulana te 125 mg tablet Take 1 tablet every 12 hours by oral route for 7 days. 07/08 completed Not Available Not Available Not Available oxycodone 5 mg tablet 11/22 completed Not Available Not Available Not Available neomycin- polymyxin -hydrocor t 3.5 mg-10,000 unit/mL-1 % ear drops,smith p INSTILL 4 DROPS INTO AFFECTED EAR(S) BY OTIC ROUTE 3 TIMES PER DAY 01/04 completed Not Available Not Available Not Available solifenac in 10 mg tablet TAKE 1 TABLET BY MOUTH ONCE DAILY 02/06 completed Not Available Not Available Not Available Mucinex D 60 mg-600 mg tablet,ex tended release 1 po bid prn 07/08 completed Not Available Not Available Not Available ketorolac 30 mg/mL injection solution 1 ml IM x 1 11/22 completed Not Available Not Available Not Available Micro Thin Lancets 33 gauge 11/22 completed Not Available Not Available Not Available Lo Loestrin Fe 1 mg-10 mcg (24)/10 mcg (2) tablet TAKE 1 TABLET BY MOUTH ONCE DAILY 11/22 completed Not Available Not Available Not Available Next Choice One Dose 1.5 mg tablet TK UTD 02/16 completed Not Available Not Available Not Available phentermi ne 37.5 mg disintegr ating tablet Take 1 tablet every day by oral route. 02/16 completed Not Available Not Available Not Available Kylie Fe 1/20 (28) 1 mg-20 mcg (21)/75 mg (7) tablet active Not Available Not Available Not Available True Metrix Glucose Test Strip 11/22 completed Not Available Not Available Not Available True Metrix Glucose Meter 11/22 completed Not Available Not Available Not Available Pazeo 0.7 % eye drops 11/22 completed Not Available Not Available Not Available Nextstell is 3 mg-14.2 mg (28) tablet TAKE 1 TABLET BY MOUTH ONCE DAILY FOR 90 DAYS 07/17 completed Not Available Not Available Not Available Vitals Date Recorded Body height Body weight Body mass index (BMI) Heart rate Oxygen saturation Systolic And Diastolic Provider Name and Address Organization Details Last Updated DateTime 4 157.48 cm 49900.6 6 g 32 kg/m2 68 /min 99 % 122/64 mm[Hg] KAITLYN Camilo [facility] [employer] [facility] 4 11:05:01 Date Recorded Body height Body mass index (BMI) Body weight Body temperature Heart rate Oxygen saturation Systolic And Diastolic Provider Name and Address Organization Details Last Updated DateTime 4 157.48 cm 31.5 kg/m2 99281.8 9 g 98 [degF] 74 /min 99 % 120/70 mm[Hg] Azra Olsen RN [facility] [employer] [facility] 4 14:15:33 Date Recorded Body height Provider Name an d Address Organization Details Last Updated DateTime 02/09/2024 157.48 cm Yamile Guidry RN [facility] [employer] [facility] 02/09/2024 17:10:28 Date Recorded Body height Body mass index (BMI) Body weight Body temperature Heart rate Oxygen saturation Systolic And Diastolic Provider Name and Address Organization Details Last Updated DateTime 4 157.48 cm 30.5 kg/m2 47960.9 3 g 97.3 [degF] 50 /min 98 % 110/72 mm[Hg] Marcy Ortiz RN [facility] [employer] [facility] 4 08:26:35 Date Recorded Body height Body mass index (BMI) Body weight Body temperature Heart rate Oxygen saturation Systolic And Diastolic Provider Name and Address Organization Details Last Updated DateTime 4 157.48 cm 30.2 kg/m2 02911.7 4 g 98.3 [degF] 64 /min 97 % 116/78 mm[Hg] Marcy Ortiz RN [facility] [employer] [facility] 4 12:42:39 Social History Question Answer Notes LastModified by Organizat ion Details LastModified Time Tobacco Smoking Status Never Smoker Not Available [facility] 11/09/2022 09:25:49 Do You Have An Advance Directive? No [id number] Information not available 11/09/2022 Do You Wear A Helmet When Biking? No [id number] Information not available 11/09/2022 What Is Your Level Of Caffeine Consumption? None [id number] Information not available 11/09/2022 In The 14 Days Before Symptom Onset, Have You Had Close Contact With A Laboratory-confirm ed COVID-19 While That Case Was Ill? No [id number] Information not available 11/09/2022 In The 14 Days Before Symptom Onset, Have You Had Close Contact With A Person Who Is Under Investigation For COVID-19 While That Person Was Ill? No [id number] Information not available 11/09/2022 What Type Of Diet Are You Following? REGULAR [id number] Information not available 11/09/2022 What Is The Highest Grade Or Level Of School You Have Completed Or The Highest Degree You Have Received? [id number] Information not available 11/09/2022 Have There Been Any Changes To Your Family Or Social Situation? No [id number] Information not available 11/09/2022 Are There Any Guns Present In Your Home? No [id number] Information not available 11/09/2022 Do You Use Insect Repellent Routinely? Yes [id number] Information not available 11/09/2022 Do You Have A Medical Power Of Freight Broker Agent? No [id number] Information not available 11/09/2022 What Is Your Relationship Status? Single [id number] Information not available 11/09/2022 Do You Use Your Seat Belt Or Car Seat Routinely? Yes [id number] Information not available 11/09/2022 Do You Have Smoke And Carbon Monoxide Detectors In Your Home? Yes [id number] [id number] Information not available 11/09/2022 Are You Passively Exposed To Smoke? No [id number] 026 Information not available 11/09/2022 Are There Any Smokers In Your House? No [id number] [id number] Information not available 11/09/2022 Do You Participate In Social Media? Yes [id number] Information not available 11/09/2022 Do You Use Sunscreen Routinely? Yes [id number] [id number] Information not available 11/09/2022 Have You Recently Traveled Abroad? No [id number] 026 Information not available 11/09/2022 Are You Currently In School? No [id number] 026 Information not available 11/09/2022 Do You Have Any Dietary Restrictions? No [id number] 026 Information not available 11/09/2022 Sex: Unknown Functional Status Question Answer Note LastModified by Organizat ion Details LastModified Time Do you use any illicit or recreational drugs? No [id number] [id number] Information not available 11/09/2022 What is your level of alcohol consumption? None [id number] 026 Information not available 11/09/2022 What is your exercise level? Occasional [id number] [id number] Information not available 11/09/2022 Mental Status Question Answer Note LastModified by Organizat ion Details LastModified Time Do you feel stressed (tense, restless, nervous, or anxious, or unable to sleep at night)? [id number] Information not available 11/09/2022 Family History Relationship Description Onset Age of this Age Resolved Age Notes LastModified by Organization Details LastModified Time Mother Multiple congenital cysts of kidney [id number] Not available 11/09/2022 09:25:54 Maternal Aunt Multiple congenital cysts of kidney [id number] Not available 11/09/2022 09:25:54 Maternal Uncle Multiple congenital cysts of kidney [id number] [id number] Not available 11/09/2022 09:25:54 Unspecified Relation Multiple congenital cysts of kidney cousin [id number] Not available 11/09/2022 09:25:54 Notes:Maternal great aunt-pe lvic cancer Medical History No medical history recorded. Gynecological History Statement/Question Response How many live births 3 Abnormal Pap Y Flow Moderate Date of LMP 07/27/2021 Menses Monthly Y Date of Last Pap Duration of Flow (days) 4 Current Control Method BCPs Breast Problems none Obstetrics History GPAL:G 3 P 3 0 0 3 Type Value Full Term 3 Living 3 Total 3 Immunizations Vaccine Type Date Status Note Provider Nam carol[place] and Address Organization Details Recorded Time Hib, unspecified formulation 3 completed Jana Nesbitt, [employer] [address] [facility], [place], [address], [facility] 05/09/2024 09:21:00 Hib, unspecified formulation 3 completed Jana Nesbitt APRN [address], [place], [address], [facility] [employer] [facility] 05/09/2024 09:21:00 Hib, unspecified formulation 4 completed Jana Nesbitt APRN [address], [address], [place], [address], [facility] 05/09/2024 09:21:00 Hib, unspecified formulation 3 completed Jana Nesbitt APRN [address], [address], [place], [address], [facility] [employer] [facility] 05/09/2024 09:21:00 MMR 7 completed Jana Nesbitt APRN [address], [place], [address], [facility] [employer] [facility] [employer] [facility] 05/09/2024 09:21:00 MMR 4 completed Jana Nesbitt APRN [address], [address], [place], [address], [facility] [employer] [facility] [employer] [facility] 05/09/2024 09:21:00 MMR 8 completed Jana Nesbitt APRN [address], [address], [place], [address], [facility] [employer] [facility] 05/09/2024 09:21:00 COVID-19, mRNA, LNP-S, PF, 30 mcg/0.3 mL dose 1 completed Jana Nesbitt APRN [address], [address], [place], [address], [facility] [employer] [facility] 05/09/2024 09:21:00 COVID-19, mRNA, LNP-S, PF, 30 mcg/0.3 mL dose 1 completed Jana Nesbitt APRN [address], [address], [place], [address], [facility] [employer] [facility] 05/09/2024 09:21:00 COVID-19, mRNA, LNP-S, PF, 30 mcg/0.3 mL dose 1 completed Jana Nesbitt APRN [address], [address], [place], [address], [facility] 05/09/2024 09:21:00 COVID-19, mRNA, LNP-S, bivalent, PF, 30 mcg/0.3 mL dose 2 completed Jana Nesbitt APRN [address], [address], [place], [address], [facility] 05/09/2024 09:21:00 pneumococcal conjugate PCV 7 [address], [place], [address], [facility] 05/09/2024 09:21:00 pneumococcal conjugate PCV 7 [address], [address], [place], [address], [facility] 05/09/2024 09:21:00 Tdap 7 [address], [address], [place], [address], [facility] 05/09/2024 09:21:00 Tdap [address], [address], [place], [address], [facility] 05/09/2024 09:21:00 varicella [address], [address], [place], [address], [facility] 05/09/2024 09:21:00 varicella [address], [place], [address], [facility] 05/09/2024 09:21:00 DTP 3 completed Jana Nesbitt, [employer] [address], [address], [place], [address], [facility] 05/09/2024 09:21:00 DTP 3 completed Jana Nesbitt, [employer] [address], [address], [place], [address], [facility] 05/09/2024 09:21:00 DTP 4 completed Jana Nesbitt, [employer] [address], [address], [place], [address], [facility] 05/09/2024 09:21:00 DTP 3 completed Jana Nesbitt, [employer] [address], [address], [place], [address], [facility] 05/09/2024 09:21:00 OPV, trivalent 4 completed Jana Nesbitt, [employer] [address], [address], [place], [address], [facility] 05/09/2024 09:21:00 OPV, trivalent 7 completed Jana Nesbitt, [employer] [address], [address], [place], [address], [facility] 05/09/2024 09:21:00 OPV, trivalent 3 completed Jana Nesbitt APRN [address], [address], [place], [address], [facility] 05/09/2024 09:21:00 OPV, trivalent 3 completed Jana Nesbitt APRN [address], [address], [place], [address], [facility] 05/09/2024 09:21:00 influenza, whole 5 completed Jana Nesbitt APRN [address], [address], [place], [address], [facility] [employer] [facility] [employer] [facility] 05/09/2024 09:21:00 HPV, bivalent 7 completed Jana Nesbitt APRN [address], [address], [place], [address], [facility] [employer] [facility] [employer] [facility] 05/09/2024 09:21:00 HPV, quadrivalent 7 completed Jana Nesbitt APRN [address], [address], [place], [address], [facility] [employer] [facility] [employer] [facility] 05/09/2024 09:21:00 HPV, quadrivalent 7 completed Jana Nesbitt APRN [address], [address], [place], [address], [facility] [employer] [facility] [employer] [facility] 05/09/2024 09:21:00 Hep B, adolescent or pediatric 4 completed JENNIE [address], [address], [place], [address], [facility] [employer] [facility] [employer] [facility] 05/09/2024 09:21:01 Hep B, adolescent or pediatric 3 completed JENNIE [address], [address], [place], [address], [employer] [facility] [employer] [facility] 05/09/2024 09:21:01 Hep B, adolescent or pediatric 3 completed JENNIE [address], [address], [place], [address], [facility] [employer] [facility] [employer] [facility] 05/09/2024 09:21:01 meningococcal C conjugate 7 completed Jana Nesbitt APRN [address], [address], [place], [address], [employer] [facility] [employer] [facility] 05/09/2024 09:21:01 DTaP 7 completed Jana Nesbitt APRN [address], [address], [place], [address], [facility] [employer] [facility] [employer] [facility] 05/09/2024 09:21:01 Influenza, split virus, quadrivalent, PF 2 completed Jana Nesbitt, [employer] [address], [address], [place], [address], [employer] 05/09/2024 09:21:01 HPV, quadrivalent 3 completed Jana Nesbitt, [employer] [address], [address], [place], [address], [employer] 05/09/2024 09:21:00 HPV, quadrivalent 2 completed Jana Nesbitt, [employer] [address], [address], [place], [address], [employer] 05/09/2024 09:21:01 Tdap 6 completed Not Available [facility] 11/09/2022 09:31:49 Influenza, split virus, quadrivalent, preservative 6 completed Not Available [facility] 11/09/2022 09:31:49 HPV, quadrivalent 4 completed Jana Nesbitt, [employer] [address], [place], [address], [employer] 05/09/2024 09:21:00 Past Encounters Encounter ID Performer Location Encounter Start Date Encounter Closed Date Diagnosis/Indication Diagnosis SNOMED-CT Code Diagnosis ICD10 Code Diagnosis IMO Codes Diagnosis Note [id number] Livia Shin MD [facility] Primary Care [place] [address] [place] [address] 07/29/2021 00:00:00 07/29/2021 19:21:49 [id number] Livia Shin MD [facility] [place] [address] [place] [address] 08/27/2021 00:00:00 08/27/2021 16:14:40 [id number] CLAIRE Pretty [facility] Primary Care [place] [address] [place] [address] 12/28/2021 00:00:00 12/29/2021 20:35:32 [id number] Livia Shin MD [facility] Primary Care [place] [address] [place] [address] 01/10/2022 00:00:00 01/10/2022 12:47:41 [id number] CLAIRE Pretty [facility] Primary Care [place] [address] [place] [address] 02/22/2022 00:00:00 02/24/2022 10:55:33 [id number] CLAIRE Pretty [facility] Primary Care [place] [address] [place] [address] 04/27/2022 00:00:00 04/27/2022 08:40:23 [id number] RADHA Chamberlain [facility] Primary Care [place] [address] [place] [address] 05/09/2022 00:00:00 05/11/2022 13:33:02 [id number] Livia Shin MD [facility] Primary Care [place] [address] [place] [address] 10/05/2022 00:00:00 10/05/2022 14:54:51 [id number] Livia Shin MD [facility] Primary Care [place] [address] [place] [address] 10/20/2022 00:00:00 10/20/2022 16:08:34 [id number] RADHA Chamberlain [facility] Primary Care [place] [address] [place] [address] 11/22/2022 14:01:52 11/22/2022 14:38:09 Pre-surgery evaluation [id number] Z01.818 Pt. scheduled for cosmetic surgery 12/28/[address] [place] [address] Tony Nino. No tobacco/al cohol/drug use. Denies any previous problems with anesthesia .Currently only taking OCPs. Stopped phentermin e for surgery.Pr e-surgery labs completed today. No concerns or questions. [id number] Livia Shin MD [facility] Primary Care [address] [place] [address] 07/17/2023 14:50:54 07/17/2023 17:13:27 Overactive urinary bladder [id number] N32.81 Has been ongoing problem.Re start oxybutynin , has had good relief in the past.State s previous urologist stated she would need surgery (pt. unsure of problem, but assuming she was diagnosed with prolapse). Will send referral to new urogyn. [id number] Stefan ayers MD [facility] General Surgery [address] [facility] [place] [address] 10/31/2023 11:03:50 10/31/2023 16:40:41 Hemorrhoids [id number] K64.9 [id number] ANGEL Seay [facility] Primary Care [address] [place] [address] 02/07/2024 14:07:08 02/07/2024 14:51:05 Tuberculosis screening [id number] Z11.1 -she has noted a cough since 01/13-her mother currently has TB-TB test Cough 73852357 R05.9 -cough since the beginning of January-chest xray Gastroesop hageal reflux disease [id number] K21.9 -was recently in the ER for GERD-given omeprazole with positive results, refill given-wors ening of symptoms when she lays down-discu ssed triggers-e gd ordered [id number] ANGEL Seay [facility] Primary Care [address] [place] [address] 02/09/2024 17:03:01 02/09/2024 17:19:48 [id number] ANGEL Seay [facility] Primary [address] [place] [address] 05/03/2024 08:20:19 05/03/2024 08:46:12 Renewal of prescription [id number] Z76.0 Adult heal th examination [id number] Z00.00 Encouraged fresh fruits and veggies-me d intake bothIncrea se daily water intake-1 1/2 galEncoura ge 30 mins of daily exerciseWe woman exams-[facility] gynLDCT-1 cigarette/ day Thyroid di sorder screening 090379202 Z13.29 Anemia screening 9649221 07 Z13.0 Diabetes m ellitus screening 690667116 Z13.1 Hyperlipid emia screening 599715420 Z13.034 [id number] ANGEL Seay [facility] Primary Care [facility] [address] [facility] [address] [place] [address] 05/16/2024 12:37:42 05/16/2024 13:53:32 Screening for malignant neoplasm of breast 345698484 Z12.39 pt will be having breast surgery within a monthmammo required by Dr. Duarte prior to completion of surgery Pre-surger y evaluation 104067416 Z01.818 pt to have a breast procedure completed as soon as all of her labs and testing has been completed Health Concerns Section Related Observation LastModified by Organization Detai ls LastModified Time None Recorded Concern Status LastModified by Organization Details LastModified Time None Recorded Advance Directives Directive N: Payers Insurance Date Sequence Insurance Name Policy Number Policy Wagoner Covered Member ID Wagoner Member ID Guarantor Name 05/13/2024 1 [facility] (MEDICAID HMO) [id number] Lashae Meza [id number] Callum Meza Notes Date Note Type Note Provider Name and Address Organization Details Recorded Time 10/31/2023 text/html Patient presents to discuss hemorrhoid. States she has had intermittent pain, bleeding, feeling of anal bulging especially after lifting weights. Regular bowel habits. Went to ER years ago for thrombosed hemorrhoid. Stefan Pickard MD [address], [address], [place], [address], [facility] 10/31/2023 18:03:50 02/07/2024 text/html Pt is here for mulitple issues ANGEL Seay [address], [place], [address], [facility] [employer] [facility] 02/07/2024 16:14:58 05/03/2024 text/html pt is here for physical ANGEL Seay [address] [address], [place], [address], [facility] [employer] [facility] 05/03/2024 08:41:58 05/16/2024 text/html Pt is here for surgical clearance ANGEL Seay [address] [address], [place], [address], [facility] [employer] [facility] 05/16/2024 14:33:16 OBGyn Episode No OBEpisode recorded.
[2025-08-10 12:59] VITALS: BP 117/68; PULSE 73; RESP 18; TEMP 36.6; O2SAT 100
--- NOTE | 2025-08-10 13:09 | ED_ITS ---
HPI - URI/Sore Throat General Chief Complaint: Upper Respiratory Infection Stated Complaint: Cough Patient presents to the [facility] with complaints of cough, nasal congestion, sinus pain, headaches, fatigue that began 3 days ago. Grandmother ill with similar symptoms. Patient has been using several poql-wcf-rbaysed cough cold and sinus medications with temporary relief of symptoms noted overall feeling significantly more fatigued today. Denies fever, chills, body aches, dizziness, sore throat, shortness of breath, nausea vomiting, diarrhea. Related Data Home Medications ?Medication ?Instructions ?Recorded ?Confirmed ?Last Taken ?Type norethindrone 1 mg-ethinyl tablet 06/03/24 06/03/24 Un known History estradiol 20 mcg (21)-iron 75 mg (7) tablet (Kylie Fe 09/30 (28)) Allergies Allergy/AdvReac Type Severity Reaction Status Date / Time No Known Allergies Allergy Verified 08/10/25 13:00 Review of Systems Constitutional: Constitutional: Reports as per HPI, Reports chills, Reports fatigue, Denies fever(s) and Denies weakness Eyes: Eyes: Reports no additional eye complaints ENT: Reports as per HPI, Denies vertigo, Denies dizziness, Reports nasal congestion and Denies sore throat Cardiovascular: Cardiovascular: Reports no additional cardiovascular complaints Respiratory: Respiratory: Reports as per HPI, Reports chest congestion, Reports cough, Denies dyspnea and Denies wheezing Gastrointestinal: Gastrointestinal: Reports no additional gastrointestinal co mplaints Genitourinary: Genitourinary: Reports no additional female genitourinary complaints Musculoskeletal: Musculoskeletal: Reports as per HPI, Denies back pain and Denies myalgias Integumentary/Breasts: Skin/Breast: Reports as per HPI, Denies pruritus, Denies erythema and Denies rash Neurologic: Reports as per HPI, Denies vertigo, Denies dizziness, Reports headache(s) and Denies weakness Psychiatric: Psychiatric: Reports no additional psychiatric complaints Endocrine: Endocrine: Reports no additional endocrine complaints Hematologic/Lymphatic: Hematologic/Lymphatic: Reports no additional hematologic/lymphatic complaints Allergic/Immunologic: Allergic/Immunologic: Reports as per HPI and Denies wheezing Comments: seasonal allergies PMFSH Past Medical History Medical History (Reviewed 07/07/25 @ 12:20 by Phill Kwon, [employer], [employer]INE OPERATOR) Helicobacter positive gastritis Umbilical hernia Gestational diabetes Urinary incontinence Umbilical hernia Gallstones Surgical History Surgical History H/O breast augmentation History of cholecystectomy H/O abdominoplasty History of tonsillectomy Family History Family History Other Cancer Social History Social History Smoking status: Current every day smoker Tobacco type: cigarettes Alcohol intake: never Substance use type: does not use Living arrangements: with family Occupation/Education: occupation 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 Spiritual care concerns: No Exam Const: General: no acute distress and ill appearing Nutritional Appearance: well nourished Orientation/consciousness: patient oriented x3 Limitations: no limitations HENMT: Head: normal to inspection Ears: external ears normal and TM's normal bilaterally Face/Nose/Sinus: Normal external nose present, Normal nares present and Nasal discharge present Face and sinus: normal facial exam and sinus tenderness frontal Mouth: Yes Normal oral and palatal mucosa present, Yes lip normal and Yes moist mucous membranes Throat: posterior oropharynx abnormal ( Minimal erythema with no edema or exudate) Neck: Neck: normal visual inspection and no lymphadenopathy Resp: Effort & Inspection: normal respiratory effort Auscultation: clear to auscultation bilaterally Cardio: Rate: regular rate Rhythm: regular rhythm Skin: General skin exam: normal color Rashes: no rashes Wounds: no wounds Neuro: General: patient oriented x3 Speech: normal speech Gait exam (Neuro): Normal gait present Extrem: General: normal to inspection and no clubbing, cyanosis or edema Psych: Mental Status: mental status grossly normal Affect: normal affect Attitude: cooperative Course Course Level of Care: Express Care Visit Vital Signs Vital signs: Vital Signs Temperature 97.8 F 08/10/25 12:59 Pulse Rate 73 08/10/25 12:59 Respiratory Rate 18 08/10/25 12:59 Blood Pressure 117/68 08/10/25 12:59 Pulse Oximetry 100 08/10/25 12:59 Oxygen Delivery Room Air 08/10/25 12:59 Temperature 97.8 F 08/10/25 12:59 Pulse Rate 73 08/10/25 12:59 Respiratory Rate 18 08/10/25 12:59 Blood Pressure 117/68 08/10/25 12:59 Pulse Oximetry 100 08/10/25 12:59 Oxygen Delivery Room Air 08/10/25 12:59 MDM - URI/Sore Throat MDM Narrative Medical decision making narrative: Likely viral in nature spoke with patient about overall symptoms relief, sinus pressure noted, can use medrol to help with symptoms- continue OTC The patient was evaluated by myself in the [facility] care. History is obtained from patient who is an independent historian and physical exam was performed. Available medical records were reviewed at this time. Exam findings show no acute concerns or changes; patient is non-toxic appearing and is in no distress. Patient is appropriate for outpatient treatment and follow-up. I have evaluated and discussed social determinants of health with the patient that could potentially impact subsequent diagnosis and treatment plans. Differential diagnosis and treatment plan were discussed with the patient. Patient agrees with discussion and after shared medical decision making agrees with plan of care. All questions were answered to the patient's satisfaction. Differential Diagnosis Differential diagnosis: Likely upper respiratory infection, croup, otitis media, sinusitis, viral infection, bronchitis, influenza and pharyngitis Medical Records Attestation: I reviewed the patient's medical records. Discharge Plan Discharge Clinical Impression: Upper respiratory infection Patient Disposition: Home Condition: Stable Instructions: Antibiotic Form, Upper Respiratory Infection (ED), Cold Symptoms (ED) Additional Instructions: Viral illness may last between 7-12days; antibiotic is NOT recommended at this time. Recommend antihistamine such as Benadryl at night time and Claritin/Zyrtec/Ashley during the day. Also using steroid nasal spray like Flonase can help with symptoms and congestion. Using sudafed for significant congestion will also give some relief. Cough syrup may cause drowsiness; avoid driving or take it at night time. Use inhaler as needed for cough, wheezing, shortness of breath or chest tightness. Also, recommend symptomatic treatment includes: rest, fluids, increase humidity of the air at home. Recommend Acetaminophen or nonsteroidal anti-inflammatory agents(NSAIDs) as directed in the bottle to reduce fever and/pain/headache. Avoid smoking/second-hand smoke. Limit visits to areas with large crowds. Frequent hand washing or hand baker paint is one of the best ways to prevent spread of infection. Please schedule a followup visit with your personal physician for further evaluation and treatment within 3-5days. Including recheck and discussion of your blood pressure. If your symptoms persist, change or worsen significantly before you can contact your personal physician then please, without delay, go to the emergency department for further evaluation. Patient Language: Taiwanese Prescriptions: New benzonatate 200 mg capsule 200 mg PO TID PRN (Reason: cough) Qty: 30 0RF methylprednisolone [Medrol (Yevgeniy)] 4 mg tablets,dose pack See Rx Instructions .ROUTE .COMPLEX Qty: 21 0RF Rx Instructions: for 6 days No Action prednisone 50 mg tablet 50 mg PO DAILY Qty: 5 0RF norethindrone-e.estradiol-iron [Kylie Fe 09/30 (28)] 1 mg-20 mcg (21)/75 mg (7) tablet omeprazole 40 mg capsule,delayed release(DR/EC) 40 mg PO BID Qty: 30 0RF Follow-up/Referrals: PHYSICIAN,RECONSIGNMENT CLERK [Primary Care Provider, Internal Medicine] Time of Disposition: 13:11
== END 2025-08-10 13:20 | disposition home or self-care (01) ==
PROVIDERS: Emergency Provider Nurse Practitioner Family
DX: J06.9 Acute upper respiratory infection, unspecified (principal); F17.210 Nicotine dependence, cigarettes, uncomplicated
CPT/HCPCS: 99213; G0463